=== PATIENT | female | born 1995 | race Caucasian/White ===

== ENCOUNTER → 2016-07-18 | Outpatient (CLI) | payer BC, MEDICAID ==
--- NOTE | 2016-07-18 19:47 | Diagnostic Imaging Report ---
EXAMINATION: Left breast ultrasound. INDICATION: Left breast tenderness. FINDINGS: The left breast parenchyma appears unremarkable with no focal lesion seen. IMPRESSION: Negative study. Clinical followup recommended. ACR BI-RADS Category 1: Negative. Result letter will be mailed to the patient. Note: At least 10% of breast cancer is not imaged by mammography. Dictated by: Dictated on workstation # [id number]
== END ==
LOC: RAD 12:54
PROVIDERS: ATTEND Nurse Practitioner Family
DX: N64.4 Mastodynia (principal)
CPT/HCPCS: 76641

== ENCOUNTER → 2018-09-10 | Outpatient (CLI) | payer BC, MEDICAID ==
--- NOTE | 2018-09-10 16:20 | Diagnostic Imaging Report ---
PROCEDURE: US Renal Bilateral. TECHNIQUE: Multiple real-time grayscale images were obtained over the kidneys in various projections bilaterally. INDICATION: Recurrent urinary tract infections. FINDINGS: Right kidney measured 10.5 cm. Its cortical thickness and echotexture was normal and showed no echogenic or shadowing stone. No hydronephrosis. The left kidney measures at least 7.5 cm however its visualization is limited by overlying gas. Its cortical thickness and echotexture appeared otherwise normal and showed no evidence for solid or cystic mass. No echogenic or shadowing stone. The urinary bladder appeared normal. There is patency of the bilateral ureteral jets confirmed with color Doppler. IMPRESSION: Limited acoustical windows to the left kidney suggest its small at 7.5 cm but its measurements may be understated on a technical basis. Normal echotexture. No stone, no mass, no hydronephrosis, normal bladder. Dictated by: Dictated on workstation # [id number]
== END ==
LOC: RAD 15:02
PROVIDERS: ATTEND Internal Medicine
DX: N39.0 Urinary tract infection, site not specified (principal)
CPT/HCPCS: 76770

== ENCOUNTER 2019-07-07 12:25 | Emergency (ER) | payer MEDICAID ==
[~2019-07-07] VITALS: Ht 160 cm; Wt 108.9 kg
--- NOTE | 2019-07-07 12:34 | ED General ---
General Stated Complaint: SOA Source of Information: Patient Exam Limitations: No Limitations History of Present Illness Date Seen by Provider: Jul 07, 2019 Time Seen by Provider: 12:33 Initial Comments To ER with reports of shortness of breath that awakened her from sleep last night. No cough, no fever. No travel history, her aunt however did just return from [facility] and is now self quarantining at her home in [place] though she is still asymptomatic. This patient has had exposure to that aunt. Timing/Duration: 4-6 Hours Severity: Mild Associated Systoms: Shortness of Air Allergies and Home Medications Patient Home Medication List Home Medication List Reviewed: Yes Review of Systems Review of Systems Constitutional: see HPI; No chills, No fever EENTM: see HPI Respiratory: see HPI; No cough; short of breath Cardiovascular: no symptoms reported Genitourinary: no symptoms reported Musculoskeletal: no symptoms reported Skin: no symptoms reported Psychiatric/Neurological: No Symptoms Reported Hematologic/Lymphatic: No Symptoms Reported Past Iuvhodu-Eaucjv-Fvkatt Hx Patient Social History Recent Foreign Travel: No Contact w/Someone Who Travel: No Physical Exam Vital Signs Vital Signs - First Documented 07/07/19 12:29 Temp 36.6 Pulse 94 Resp 18 B/P (MAP) 116/60 (78) Pulse Ox 99 O2 Delivery Room Air Capillary Refill : Height, Weight, BMI Height: '" Weight: lbs. oz. kg; BMI Method: General Appearance: No Apparent Distress, WD/WN Eyes: Bilateral Eye Normal Inspection, Bilateral Eye PERRL, Bilateral Eye EOMI HEENT: PERRL/EOMI, Normal ENT Inspection Neck: Full Range of Motion, Normal Inspection Respiratory: Lungs Clear, Normal Breath Sounds, No Accessory Muscle Use, No Respiratory Distress Gastrointestinal: Non Tender, Soft Neurologic/Psychiatric: Alert, Oriented x3 Skin: Normal Color, Warm/Dry Progress/Results/Core Measures Suspected Sepsis SIRS Temperature: Pulse: Respiratory Rate: Laboratory Tests 07/07/19 12:45: White Blood Count 7.4 Blood Pressure / Mean: Laboratory Tests 07/07/19 12:45: Creatinine 0.87, Platelet Count 360 Results/Orders Lab Results Laboratory Tests Test 07/07/19 12:45 Range/Units White Blood Count 7.4 4.3-11.0 10^3/uL Red Blood Count 4.97 4.35-5.85 10^6/uL Hemoglobin 14.2 11.5-16.0 G/DL Hematocrit 42 35-52 % Mean Corpuscular Volume 84 80-99 FL Mean Corpuscular Hemoglobin 29 25-34 PG Mean Corpuscular Hemoglobin Concent 34 32-36 G/DL Red Cell Distribution Width 13.1 10.0-14.5 % Platelet Count 360 130-400 10^3/uL Mean Platelet Volume 9.2 7.4-10.4 FL Neutrophils (%) (Auto) 66 42-75 % Lymphocytes (%) (Auto) 26 12-44 % Monocytes (%) (Auto) 7 0-12 % Eosinophils (%) (Auto) 1 0-10 % Basophils (%) (Auto) 0 0-10 % Neutrophils # (Auto) 4.9 1.8-7.8 X 10^3 Lymphocytes # (Auto) 1.9 1.0-4.0 X 10^3 Monocytes # (Auto) 0.5 0.0-1.0 X 10^3 Eosinophils # (Auto) 0.1 0.0-0.3 10^3/uL Basophils # (Auto) 0.0 0.0-0.1 10^3/uL D-Dimer < 0.27 0.00-0.49 UG/ML Sodium Level 141 135-145 MMOL/L Potassium Level 3.9 3.6-5.0 MMOL/L Chloride Level 107 98-107 MMOL/L Carbon Dioxide Level 24 21-32 MMOL/L Anion Gap 10 5-14 MMOL/L Blood Urea Nitrogen 9 7-18 MG/DL Creatinine 0.87 0.60-1.30 MG/DL Estimat Glomerular Filtration Rate > 60 BUN/Creatinine Ratio 10 Glucose Level 104 70-105 MG/DL Calcium Level 9.1 8.5-10.1 MG/DL My Orders Orders - LEXII SOLORZANO CASE HARDENER Cbc With Automated Diff (07/07/19 12:32) Basic Metabolic Panel (07/07/19 12:32) Fibrin Degradation Products (07/07/19 12:32) Chest Pa/Lat (2 View) (07/07/19 12:32) Vital Signs/I&O 07/07/19 07/07/19 12:29 13:58 Temp 36.6 36.9 Pulse 94 90 Resp 18 18 B/P (MAP) 116/60 (78) 147/93 Pulse Ox 99 99 O2 Delivery Room Air Room Air Capillary Refill : Departure Impression Primary Impression: Dyspnea Qualified Codes: R06.00 - Dyspnea, unspecified Disposition: 01 HOME, SELF-CARE Condition: Stable Departure-Patient Inst. Decision time for Depature: 13:40 Referrals: MONA BERNARDO MD (PCP/Family) Primary Care Physician Patient Instructions: Shortness of Breath (Dyspnea) (DC) Add. Discharge Instructions: 1. Follow-up with your doctor later this week for recheck 2. Return to ER for any concerns. Work/School Note: Work Release Form Date Seen in the Emergency Department: Jul 07, 2019 Return to Work: Jul 12, 2019 LEXII SOLORZANO APRN Jul 07, 2019 12:34
[2019-07-07 12:52] LABS: BASOPHILS % (AUTO) 0 % (0-10); EOSINOPHILS # (AUTO) 0.1 10^3/uL (0.0-0.3); EOSINOPHILS % (AUTO) 1 % (0-10); HEMATOCRIT 42 % (35-52); HEMOGLOBIN 14.2 G/DL (11.5-16.0); LYMPHOCYTES # (AUTO) 1.9 X 10^3 (1.0-4.0); LYMPHOCYTES % (AUTO) 26 % (12-44); MEAN CORPUSCULAR HEMOGLOBIN 29 PG (25-34); MEAN CORPUSCULAR HGB CONC 34 G/DL (32-36); MEAN CORPUSCULAR VOLUME 84 FL (80-99); MEAN PLATELET VOLUME 9.2 FL (7.4-10.4); MONOCYTES # (AUTO) 0.5 X 10^3 (0.0-1.0); MONOCYTES % (AUTO) 7 % (0-12); NEUTROPHILS # (AUTO) 4.9 X 10^3 (1.8-7.8); NEUTROPHILS % (AUTO) 66 % (42-75); PLATELET COUNT 360 10^3/uL (130-400); RED CELL DISTRIBUTION WIDTH 13.1 % (10.0-14.5); WHITE BLOOD COUNT 7.4 10^3/uL (4.3-11.0)
[2019-07-07 13:10] LABS: BUN/CREATININE RATIO 10; CALCIUM 9.1 MG/DL (8.5-10.1); CARBON DIOXIDE 24 MMOL/L (21-32); CHLORIDE 107 MMOL/L (98-107); CREATININE SERUM 0.87 MG/DL (0.60-1.30); GFR ESTIMATED > 60; GLUCOSE 104 MG/DL (70-105); POTASSIUM 3.9 MMOL/L (3.6-5.0); SODIUM 141 MMOL/L (135-145)
--- NOTE | 2019-07-07 13:37 | Diagnostic Imaging Report ---
INDICATION: Dyspnea PA and lateral views of the chest are obtained. COMPARISON: No previous study is available for comparison at this time. FINDINGS: Heart size and pulmonary vasculature are within normal limits, and the lungs are clear, bilaterally. IMPRESSION: Unremarkable chest. Dictated by: Dictated on workstation # [id number]
[2019-07-07 13:58] VITALS: BP 147/93
--- OUTSIDE RECORDS SUMMARY | 2019-07-07 16:20 | XMS REPORT | CCD ---
Author Author AXEL PALACIO Organization Unknown Address [address] [place] [address] Care Team Providers Care Stockroom Selector Name Role Phone [facility], KIKE DO Attphys [facility], KIKE DO Prisurg Allergies Allergy Code Allergy Type Reaction Status No Known Drug Allergies 0 Drug allergy Active Active Medications Medication Code Dose Units Frequency Rou te Modification Start Date/Time oxyCODONE HCl-acetaminophen 5MG-325MG Oral Tablet 2701671 1 TABLET NEEDED EVERY 6 HR BY MOUTH 11/01 17:32 Prescription Detail 1 TABLET BY MOUTH NEEDED EVERY 6 HR PrePlus 27MG-1MG Oral Tablet 4726590 1 EACH DAILY BY MOUTH 11/02/2015 17:32 Prescription Detail 1 EACH BY MOUTH DAILY Ferrous Sulfate 325MG Oral Tablet 858004 325 M ILLIGRAMS BEFORE TWO MEALS BY MOUTH 11/02/2015 17:31 Prescription Detail 325 MILLIGRAMS BY MOUTH BEF ORE TWO MEALS Ibuprofen 800MG Oral Tablet 675990 800 MILLIGR AMS EVERY 8 HOURS BY MOUTH 11/02/2015 17:31 Prescription Detail 800 MILLIGRAMS BY MOUTH NICOLAS RY 8 HOURS Docusate Sodium 100MG Oral Capsule 8649039 100 MILLIGRAMS NEEDED BY MOUTH 11/02/2015 17:30 Prescription Detail 100 MILLIGRAMS BY MOUTH NEEDED Problems Problem Code Start Date Resolved Date Sta tus Delivery by [id number] Active Procedures Procedure Code Procedure Type Date IRON TOTAL 11087941 SNOMED CT 01/29/2016 [address]ON T[address] 04644186 SNOMED [address] 01/29/[address] 01/29/2016 UA ROUTINE C&S IF IND 700167707 SNOMED CT 01/[address] 01/29/[address] 01/29/[address] 01/29/2016 RAPID DRUG SCREEN 592269679 [facility] CT 01/29/20 16 TROPONIN-I ADV 516539648 [facility] 01/29/2016 LIPASE 45121170 [facility] 01/29/2016 COMPREHENSIVE METABOLIC PANEL 699347905 [facility] 01/29/2016 CBC W/ AUTO DIFF (RFLX MAN DIFF IF IND) 4160964 [facility] 01/29/2016 ^UA WITH MICRO 767867106 SNOMED CT 01/29/2016 ^CBC W/AUTO DIFF 2857219 [facility] CT 6 Results COMPREHENSIVE METABOLIC PANEL - Collect Date/Time: 01/29/2016 15:00 Test Name Code Test Result Test Units Danna t Ref Range GLUCOSE 2345-7 85 MG/DL L=70 H=1 00 SODIUM 2951-2 142 MEQ/L L=135 H=14 8 POTASSIUM 2823-3 3.7 MEQ/L L=3.5 H =5.3 CHLORIDE 2075-0 107 MEQ/L L=96 H= 110 CO2 2028-9 23 MEQ/L L=22 H=29 BUN 3094-0 10 MG/DL L=8 H=22 CREATININE 2160-0 0.7 MG/DL L=0.6 H=1.6 SGOT/AST 1920-8 40 IU/L L=10 H= 40 SGPT/ALT 1742-6 44 IU/L L=8 H= 54 ALK PHOS 6768-6 80 IU/L L=35 H= 115 TOTAL PROTEIN 2885-2 7.2 G/DL L=5.5 H=8.5 ALBUMIN 1751-7 4.2 G/DL L=3.1 H=5 .4 TOTAL BILI 1975-2 0.6 MG/DL L=0.0 H=1.5 CALCIUM 61278-0 9.4 MG/DL L=8.2 H= 10.6 AGE 20 yrs GFR NonAA 108 GFR AA 131 eGFR >60 N/A eGFR AA* >60 N/A IRON TOTAL - Collect Date/Time: 01/29/20 16 17:05 Test Name Code Test Result Test Units Danna t Ref Range IRON TOTAL 2498-4 172 MCG/DL L=50 H=212 IRON TOTAL - Collect Date/Time: 01/29/20 16 15:00 Test Name Code Test Result Test Units Danna t Ref Range IRON TOTAL 2498-4 69 MCG/DL L=50 H=212 LIPASE - Collect Date/Time: 01/29/2016 1 5:00 Test Name Code Test Result Test Units Danna t Ref Range LIPASE 3040-3 10 U/L L=8 H=78 ACETAMINOPHEN - Collect Date/Time: 01/28 15:00 Test Name Code Test Result Test Units Danna t Ref Range ACETAMINOPHEN 3298-7 <0.60 UG/ML ALCOHOL - Collect Date/Time: 01/29/2016 15:00 Test Name Code Test Result Test Units Danna t Ref Range ETHANOL 5640-8 <10 MG/DL RAPID DRUG SCREEN - Collect Date/Time: 1 15:35 Test Name Code Test Result Test Units Danna t Ref Range Cannabinoids (THC) NEGATIVE N/A N EG: < 50 ng/ml Phencyclidine (PCP) NEGATIVE N/A NEG: < 25 ng/ml Cocaine NEGATIVE N/A NEG: < 300 ng/ml Methamphetamine NEGATIVE N/A NEG: < 1000 ng/ml Opiates NEGATIVE N/A NEG: < 300 ng/ml Amphetamine NEGATIVE N/A NEG: < 1 000 ng/ml Benzodiazepines NEGATIVE N/A NEG: < 300 ng/ml Tricyclic Antidepres NEGATIVE N/A NEG: < 300 ng/ml Methadone NEGATIVE N/A NEG: < 30 0 ng/ml Barbiturates NEGATIVE N/A NEG: < 200 ng/ml Oxycodone NEGATIVE N/A NEG: < 10 0 ng/ml Propoxyphene (PPX) NEGATIVE N/A N EG: < 300 ng/ml SALICYLATE - Collect Date/Time: 01/29/20 16 15:00 Test Name Code Test Result Test Units Danna t Ref Range SALICYLATE 4023-8 <5.0 MG/DL L=0.0 H=45.0 CBC W/ AUTO DIFF (RFLX MAN DIFF IF IND) - Collect Date/Time: 01/29/2016 15:00 Test Name Code Test Result Test Units Danna t Ref Range WBC 06682-8 7.5 TH/CMM L=4.5 H=1 0.8 RBC 789-8 4.72 ML/CMM L=4.20 H=5. 40 HGB 718-7 12.5 G/DL L=12.0 H=16 .0 HCT 4544-3 38.3 % L=37.0 H=47 .0 MCV 81 FL L=81 H=99 MCH 26.5 PG L=27.0 H=33 .0 MCHC 32.6 G/DL L=31.0 H=36 .0 RDW SD 40 FL L=36 H=50 RDW CV 13.7 % L=0.0 H=14 .8 MPV 8.5 FL L=9.3 H=12 .5 PLT 777-3 396 TH/CMM L=130 H=44 0 NRBC# 0.00 TH/CMM L=0.00 H=0. 00 NRBC% 0.0 /100WBC L=0.0 H=2 .0 %NEUT 67.5 % %LYMP 23.7 % %MONO 6.5 % %EOS 1.1 % %BASO 0.8 % #NEUT 5.08 TH/CMM L=2.10 H=8. 20 #LYMP 1.78 TH/CMM L=0.90 H=5. 20 #MONO 0.49 TH/CMM L=0.16 H=1. 00 #EOS 0.08 TH/CMM L=0.00 H=0. 80 #BASO 0.06 TH/CMM L=0.00 H=0. 20 MANUAL DIFF NOT IND N/A UA ROUTINE C&S IF IND - Collect Date/Danny e: 01/29/2016 15:30 Test Name Code Test Result Test Units Danna t Ref Range COLOR YELLOW N/A NL: YELLOW APPEARANCE CLEAR N/A NL: CLEAR SPEC GRAV 1.025 N/A NL: 1.002 - 1.022 pH 6.0 N/A NL: 5 - 9 PROTEIN NEGATIVE N/A NL: NEGATIVE mg/dl GLUCOSE NEGATIVE N/A NL: NEGATIVE mg/dl KETONE TRACE N/A NL: NEGATIVE m g/dl BILIRUBIN NEGATIVE N/A NL: NEGATI VE BLOOD TRACE-INTACT N/A NL: NEGAT CLEO NITRITE NEGATIVE N/A NL: NEGATIVE LEUK SCREEN NEGATIVE N/A NL: NEGA TIVE MICRO INDICATED? SEE BELOW N/A WBC/HPF 0-5 N/A NL: NEGATIVE RBC/HPF RARE N/A NL: NEGATIVE CASTS/LPF NEGATIVE N/A NL: NEGAT CLEO CRYSTALS NEGATIVE N/A NL: NEGATI VE MUCOUS THRDS NEGATIVE N/A NL: NE GATIVE BACTERIA FEW N/A NL: NEGATIVE EPITH CELLS 1+ SQUAMOUS N/A NL: NEGATIVE TRICHOMONAS NEGATIVE N/A NL: NEG ATIVE YEAST NEGATIVE N/A NL: NEGATIVE CULT SET UP? NO N/A TEST - Collect Date/Time: 01/19 15:00 Test Name Code Test Result Test Units Danna t Ref Range TEST 8-8 NEGATIVE N/A TROPONIN-I ADV - Collect Date/Time: 01/19 15:00 Test Name Code Test Result Test [place] [address]-0 <0.04 ng/mL L=0.04 H=0.40 Function Status Unknown or Not Available. History of Immunizations Immunization Code Date Tdap 115 09/14/2015 Plan of Treatment Unknown or Not Available. Social History Smoking Status Code Start Date End Date Never smoker [id number] Vital Signs Unknown or Not Available. Function Status Unknown or Not Available. Goals Unknown or Not Available. ASSESSMENTS Unknown or Not Available. Health Concerns Section Unknown or Not Available.
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
--- OUTSIDE RECORDS SUMMARY | 2019-07-07 16:21 | XMS REPORT ---
Author Author Genet Anguiano Organization [facility] Address [address] [place], [place] [id number] Care Team Providers Care Accounting Methods Analyst Name Role Phone Sergey Anguiano PCP Unavailable Allergies and Adverse Reactions Name Reaction Notes NO KNOWN DRUG ALLERGIES Plan of Treatment Not available. Medications Active Name Start Date Estimated Completion Date SIG Co mments IMPLANON Subdermal Implant 68 mg implant 1 by subdermal route Vyvanse oral capsule 50 mg 09/22/2014 10/22/2014 take 1 capsule (50 mg) by oral route once daily in the morning for 30 days Name Start Date Expiration Date SIG Comments Sprintec (28) Oral Tablet 0.25-35 mg-mcg 09/11/2010 10/10/19 11 TAKE ONE TABLET DAILY Amoxicillin Oral Capsule 500 mg 05/27/2011 06/06/2011 take 2 capsules by oral route 3 times a day for 5 days Zithromax Z-Florentino Oral tablet 250 mg 03/20/2012 03/21/2012 take 2 tablets (500 mg) by oral route once daily for 1 day then 1 tablet (250 mg) by oral route once daily for 4 days estradiol Oral tablet 1 mg 06/03/2012 06/13/2012 take 1 tablet (1 mg) by oral route once daily for 10 days Kapvay Oral tablet extended release 12 hr 0.1 mg 08/31/2012 09/30/2012 take 1 tablet by oral route 2 times a day for 30 days amoxicillin oral tablet 875 mg 05/26/2014 06/02/2014 t nanci 1 tablet (875 mg) by oral route every 12 hours for 7 days Discontinued Name Start Date Discontinued Date SIG Comments Risperdal Oral Tablet 0.5 mg 06/03/2012 take 1 table t by oral route daily Loestrin Fe 20 (28) Oral Tablet 1-20 mg-mcg 11/06/201009/25/2011 take 1 tablet by oral route once daily for 30 days promethazine-codeine Oral Syrup 6.25-10 mg/5 mL 03/16/2012 06/03/2012 take 5 milliliters by oral route every 4-6 hours as needed, not to exceed 30 mL in 24 hours estradiol oral tablet 1 mg 09/16/2013 05/26/2014 take 1 tablet (1 mg) by oral route once daily Problem List Description Status Onset ADHD Active Bipolar Disorder Active Vital Signs Date Time BP-Sys(mm[Hg] BP-Gita(mm[Hg]) HR(bpm) RR(rpm) Temp WT HT HC BMI BSA BMI Percentile O2 Sat(%) 09/29/2014 3:12:00 PM 130 mmHg 78 mmHg 115 bpm 18 rpm 99.3 F 166.125 lbs 63 in 29.43 kg/m2 1.83 m2 93.8 % 08/11/2014 3:46:00 PM 108 mmHg 62 mmHg 78 bpm 18 rpm 98.7 F 166 lbs 63 in 29.4053 kg/m 1.8295 m 93.9 % 05/26/2014 2:54:00 PM 112 mmHg 76 mmHg 80 bpm 16 rpm 99.3 F 162 lbs 63 in 28.70 kg/m2 1.81 m2 93.1 % 04/05/2014 9:35:00 AM 102 mmHg 60 mmHg 69 bpm 16 rpm 97.8 F 160.375 lbs 63 in 28.4089 kg/m 1.7982 m 92.8 % 100 % 09/16/2013 2:58:00 PM 122 mmHg 62 mmHg 84 bpm 18 rpm 98.6 F 148.375 lbs 63 in 26.28 kg/m2 1.73 m2 88.7 % 98 % 09/16/2013 2:58:00 PM 120 mmHg 62 mmHg 08/31/2012 3:58:00 PM 102 mmHg 60 mmHg 88 bpm 18 rpm 98.8 F 185 lbs 63 in 32.7709 kg/m 1.9313 m 97.7 % 06/03/2012 11:04:00 AM 123 mmHg 76 mmHg 103 bpm 97.6 F 180 lbs 63 in 31.89 kg/m2 1.91 m2 97.4 % 03/16/2012 11:33:00 AM 132 mmHg 68 mmHg 68 bpm 18 rpm 99 F 185.5 lbs 63 i n 32.8595 kg/m 1.9339 m 97.9 % 10/18/2011 11:17:00 AM 128 mmHg 75 mmHg 127 bpm 98 F 177 lbs 63 in 31.35 kg/m2 1.89 m2 97.4 % 09/25/2011 2:59:00 PM 114 mmHg 75 mmHg 114 bpm 97.8 F 174.375 lbs 63 i n 30.8888 kg/m 1.875 m 97.2 % 07/26/2011 9:24:00 AM 112 mmHg 72 mmHg 88 bpm 20 rpm 97.8 F 169 lbs 63 in 29.94 kg/m2 1.85 m2 96.7 % 05/27/2011 10:45:00 AM 102 mmHg 70 mmHg 106 bpm 20 rpm 97.4 F 164 lbs 62.5 i n 29.5177 kg/m 1.8112 m 96.5 % 11/06/2010 3:27:00 PM 110 mmHg 72 mmHg 94 bpm 20 rpm 98 F 169 lbs 61.5 in 31.41 kg/m2 1.82 m2 97.9 % 06/26/2010 4:12:00 PM 104 mmHg 68 mmHg 88 bpm 22 rpm 98.8 F 149 lbs 05/28/2010 2:28:00 PM 104 mmHg 62 mmHg 100 bpm 24 rpm 98.8 F 146 lbs 07/18/2009 2:59:00 PM 98 mmHg 72 mmHg 100 bpm 16 rpm 98.4 F 126.125 lbs Social History Name Description Comments denies alcohol use Tobacco Never smoker Alcohol History of Procedures Date Ordered Description Order Status 09/25/2011 12:00 AM CHLAMYDIA CULTURE Returned 09/25/2011 12:00 AM N.GONORRHOEAE DNA AMP PROB Returned 09/25/2011 12:00 AM SYPHILIS TEST NON-TREP QUAL Returned 09/25/2011 12:00 AM HIV-1ANTIBODY Returned 09/25/2011 12:00 AM HEPATITIS B SURFACE AG EIA Returned 09/25/2011 12:00 AM CHORIONIC GONADOTROPIN ASSAY Returned 10/18/2011 12:00 AM INSERT DRUG IMPLANT DEVICE Reviewed 07/18/2009 12:00 AM IMMUNIZATION ADMIN Reviewed 09/15/2009 12:00 AM IMMUNIZATION ADMIN Reviewed [...] 1:31 PM BETA HCG QUANT <1 MIU/ML History Of Immunizations Name Date Admin Mfg Name Mfg Code Trade Name Lot# Route Inj Vis Given Vis Pub CVX HPV 07/18/2009 [employer] MSD GARDASIL oo4oz Intramuscul ar Left Deltoid 07/18/2009 05/23/2006 999 History of Past Illness Name Date of [...] or removal Sep 29 2014 3:20P M Payers Insurance Name Company Name Plan Name Plan Number Policy Number Javier cy Group Number Start Date [id number] Mo 2011 [place] [employer] [place] [facility] [employer] [employer] [id number] Tuesday, 2009 [place] [employer] - [employer] [place] [employer] - RH C [id number] N/A [facility] [id number] N/A History of Encounters Visit Date Visit Type Provider 09/29/2014 Procedures Neisha lara SUPERVISOR DYER 08/11/2014 Office visit Sergey Anguiano MD 05/26/2014 Office visit Sergey Anguiano MD 04/05/2014 Office visit Sergey Anguiano MD 09/16/2013 Office visit [place] SUPERVISOR DYER 08/31/2012 Office visit Sergey Anguiano MD 06/03/2012 Office visit Liane Gamez MD 03/16/2012 Office visit [place] APRN 10/18/2011 Procedures Liane Gamez MD 09/25/2011 Office visit Liane Gamez MD 07/26/2011 Office visit Sergey Anguiano MD 05/27/2011 Office visit Sergey Anguiano MD 11/06/2010 Office visit Sergey Anguiano MD 06/26/2010 Office visit Sergey Anguiano MD 05/28/2010 Office visit Sergey Anguiano MD 09/15/2009 Nurse visit Sergey Anguiano MD 07/18/2009 Office visit Sergey Anguiano MD
--- OUTSIDE RECORDS SUMMARY | 2019-07-07 16:21 | XMS REPORT ---
Author Author Genet Courtney Organization [facility] Address [address] [place], [place] [id number] Care Team Providers Care Bilingual Medical Receptionist Name Role Phone Scotty Courtney PCP Allergies and Adverse Reactions Name Reaction Notes NO KNOWN DRUG ALLERGIES Plan of Treatment Planned Activity Comments Planned Date Planned Time Plan/Goal N.GONORRHOEAE DNA AMP PROB 01/13/2015 12:00 AM CHLAMYDIA CULTURE 01/13/2015 12:00 AM HIV-1ANTIBODY 01/13/2015 12:00 AM CHORIONIC GONADOTROPIN TEST 01/13/2015 12:00 AM URINE TEST 01/02/2015 12:00 AM Medications Active Name Start Date Estimated Completion Date SIG Co mments Vitamin oral tablet take 1 table t by oral route once daily Name Start Date Expiration Date SIG Comments [...] daily in the morning for 30 days Discontinued Name Start Date Discontinued Date [...] HC BMI BSA BMI Percentile O2 Sat(%) 01/13/2015 9:37:00 AM 103 mmHg 71 mmHg [...] Ordered Description Order Status 01/13/2015 12:00 AM URINALYSIS AUTO W/SCOPE Returned 01/13/2015 12:00 AM OBSTETRIC PANEL Returned 09/25/2011 12:00 AM CHLAMYDIA CULTURE Returned 09/25/2011 [...] Care, First Normal Jan 13 2015 9:41AM Payers Insurance Name Company Name Plan Name Plan Number Policy Number Javier cy Group Number Start Date Bcbs Bcbs Of [place] [id number] Mo 2011 [place] Medical [place] Sher[place] t[place] Prog [id number] Tuesday, 2009 [place] [employer]ranger [employer]sembler Prog - RHC [place] [employer] Pro[employer] - RH C [id number] N/A [facility] RHC Comm [id number] N/A History of Encounters Visit Date Visit Type Provider 01/13/[address] ROSANNA GRIGGS MD 01/04/2015 Office visit Irina PINEDA RN 12/16/2014 Office visit Sergey Anguiano MD 09/29/2014 Procedures Neisha lara COTTON PROGRAM TECHNICIAN 08/11/2014 Office visit Sergey Anguiano MD 05/26/2014 Office visit Sergey Anguiano MD 04/05/2014 Office visit Sergey Anguiano MD 09/16/2013 Office visit [place] COTTON PROGRAM TECHNICIAN 08/31/2012 Office visit Sergey Anguiano MD 06/03/2012 Office visit Liane Gamez MD 03/16/2012 Office visit [place] COTTON PROGRAM TECHNICIAN 10/18/2011 Procedures Liane Gamez MD 09/25/2011 Office visit Liane Gamez MD 07/26/2011 Office visit Sergey Anguiano MD 05/27/2011 Office visit Sergey Anguiano MD 11/06/2010 Office visit Sergey Anguiano MD 06/26/2010 Office visit Sergey Anguiano MD 05/28/2010 Office visit Sergey Anguiano MD 09/15/2009 Nurse visit Sergey Anguiano MD 07/18/2009 Office visit Sergey Anguiano MD
--- OUTSIDE RECORDS SUMMARY | 2019-07-07 16:21 | XMS REPORT ---
Author Author Genet Brown Organization [facility] Address [address] [place], [place] [id number] Care Team Providers Care Pipe Puller Name Role Phone Shannon Brown PCP Sergey Anguiano PreferredProvider Allergies and Adverse Reactions Name Reaction Notes NO KNOWN DRUG ALLERGIES Plan of Treatment Planned Activity Comments Planned Date Planned Time Plan/Goal test, urine 01/02/2015 12:00 AM Medications Active Name Start Date Estimated Completion Date SIG Co mments Vitamin oral Zofran (as hydrochloride) 8 mg oral tablet 03/11/2017 take 1 tablet by oral route every 8 hours as needed Name Start Date Expiration [...] (1 mg) by oral route once daily Vitamin oral tablet 12/12/2015 take 1 table t by oral route once daily triamcinolone acetonide [...] tablet (150 mg) by oral route once ferrous sulfate 325 mg (65 mg iron) oral tablet 08/22/2015 12/12/2015 take 1 tablet by oral route 2 times a day for 30 days Vistaril 50 mg oral capsule 09/28/2015 12/12/2015 take 1 capsule by oral route every 4 hours as needed Zoloft oral 02/28/2016 Take one tablet daily Prozac oral 01/06/2017 Zofran ODT 8 mg oral tablet,disintegrating 03/11/201703/11 take 1 tablet (8 mg) and place on top of the tongue where it will dissolve, then swallow by oral route every 8 hrs as needed for nausea w Problem List Description Status Onset ADHD Active Bipolar Disorder Active Vital Signs Date Time BP-Sys(mm[Hg] BP-Gita(mm[Hg]) HR(bpm) RR(rpm) Temp WT HT HC BMI BSA BMI Percentile O2 Sat(%) 01/06/2017 3:53:00 PM 127 mmHg 70 mmHg 86 bpm 99.4 F 209 lbs 63 in 37.02 kg/m2 2.05 m2 0 % 02/28/2016 1:43:00 PM 125 mmHg 72 mmHg 97 bpm 99 F 214 lbs 63 in 37.908 kg/m 2.0772 m 98 % 12/12/2015 11:43:00 AM 105 mmHg 72 mmHg 90 bpm 98 F 200.5 lbs 63 in 35.52 kg/m2 2.01 m2 97.4 % 08/15/2015 6:02:00 PM 97 bpm 20 rpm 98.8 F 202 lbs 63 in 35.7823 kg/m 2.0181 m 97.6 % 97 % 06/11/2015 3:40:00 PM 122 mmHg 78 mmHg 110 bpm 20 rpm 98.3 F 183 lbs 64 in 31.41 kg/m2 1.94 m2 95.4 % 100 % 05/29/2015 3:21:00 PM 100 mmHg 64 mmHg 105 bpm 20 rpm 98.9 F 178 lbs 63 in 31.531 kg/m 1.8944 m 95.6 % 99 % 04/05/2015 4:09:00 PM 120 mmHg 60 mmHg 90 bpm 18 rpm 98 F 187 lbs 63 in 33.13 kg/m2 1.94 m2 96.7 % 100 % 03/30/2015 1:45:00 PM 112 mmHg 70 mmHg 76 bpm 18 rpm 98.7 F 172 lbs 63 in 30.4681 kg/m 1.8622 m 94.7 % 100 % 03/22/2015 4:17:00 PM 129 mmHg 70 mmHg 103 bpm 169 lbs 63 in 29.94 kg/m2 1.85 m2 94.1 % 01/13/2015 9:37:00 AM 103 mmHg 71 mmHg 80 bpm 98.89 F 165 lbs 63 in 29.2281 kg/m 1.8239 m 93.3 % 01/04/2015 2:20:00 PM 118 mmHg 60 mmHg 91 bpm 16 rpm 98 F 167 lbs 63 in 29.58 kg/m2 1.83 m2 93.8 % 100 % 12/16/2014 11:11:00 AM 100 mmHg 62 mmHg 80 bpm 18 rpm 98.8 F 168 lbs 63 in 29.7596 kg/m 1.8405 m 94.1 % 09/29/2014 3:12:00 PM 130 mmHg [...] Name Description Comments denies alcohol use Tobacco Former smoker Alcohol Never History of Procedures Date Ordered Description Order Status 01/13/2015 12:00 AM N.GONORRHOEAE DNA AMP PROB Reviewed 01/13/2015 12:00 AM CHLAMYDIA CULTURE Reviewed 01/13/2015 12:00 AM HIV-1ANTIBODY Reviewed 01/13/2015 12:00 AM URINALYSIS AUTO W/SCOPE Reviewed 01/13/2015 12:00 AM OBSTETRIC PANEL Reviewed 01/13/2015 12:00 AM CHORIONIC GONADOTROPIN TEST Reviewed 03/06/2015 12:00 AM CHORIONIC GONADOTROPIN ASSAY Reviewed 03/22/2015 12:00 AM N.GONORRHOEAE DNA AMP PROB Reviewed 03/22/2015 12:00 AM CHLAMYDIA CULTURE Reviewed 03/22/2015 12:00 AM HIV-1ANTIBODY Reviewed 03/22/2015 12:00 AM URINALYSIS AUTO W/SCOPE Reviewed 03/22/2015 12:00 AM OBSTETRIC PANEL Reviewed 03/22/2015 12:00 AM US PREG UTERUS REAL TIME W/IMAGE DCMTN T RANSVAG Reviewed 04/05/2015 12:00 AM URNLS DIP STICK/TABLET RGNT AUTO W/O JUNG ROSCOPY Reviewed 05/29/2015 12:00 AM ALPHA-FETOPROTEIN SERUM Reviewed 05/29/2015 12:00 AM COMPLETE CBC W/AUTO DIFF WBC Reviewed 05/29/2015 12:00 AM COMPREHEN METABOLIC PANEL Reviewed 06/11/2015 4:11 PM URINALYSIS AUTO W/O SCOPE Reviewed 06/23/2015 12:00 AM OB US >/= 14 WKS SNGL FETUS Reviewed 06/11/2015 12:00 AM URINE CULTURE/COLONY COUNT Reviewed 08/15/2015 6:07 PM URINALYSIS AUTO W/O SCOPE Reviewed 08/15/2015 12:00 AM URINE CULTURE/COLONY COUNT Returned 2015 12:00 AM RH IG FULL-DOSE IM Reviewed 2015 12:00 AM Type and screen Reviewed 2015 12:00 AM GLUCOSE TOLERANCE TEST (GTT) Reviewed 2015 12:00 AM COMPLETE CBC W/AUTO DIFF WBC Reviewed 08/22/2015 12:00 AM GLUCOSE TOLERANCE TEST (GTT) Reviewed 09/14/2015 12:00 AM URINE CULTURE/COLONY COUNT Reviewed 09/14/2015 12:00 AM TDAP VACCINE 7 YRS/> IM Reviewed 09/14/2015 12:00 AM IMMUNIZATION ADMIN EACH ADD Reviewed 10/10/2015 12:00 AM CULTURE SCREEN ONLY Reviewed 04/18/2016 12:00 AM CHORIONIC GONADOTROPIN ASSAY Reviewed 09/25/2011 12:00 AM CHLAMYDIA CULTURE Reviewed 09/25/2011 12:00 AM N.GONORRHOEAE DNA AMP PROB Reviewed 09/25/2011 12:00 AM SYPHILIS TEST NON-TREP QUAL Reviewed 09/25/2011 12:00 AM HIV-1ANTIBODY Reviewed 09/25/2011 12:00 AM HEPATITIS B SURFACE AG EIA Reviewed 09/25/2011 12:00 AM CHORIONIC GONADOTROPIN ASSAY Reviewed 10/18/2011 12:00 AM INSERT DRUG IMPLANT DEVICE Reviewed 10/18/2011 12:00 AM Implanon device Reviewed 01/06/2017 4:55 PM URINE TEST Reviewed 01/06/2017 12:00 AM SPECIMEN HANDLING OFFICE-LAB Reviewed 01/06/2017 12:00 AM N.GONORRHOEAE DNA AMP PROB Reviewed 01/06/2017 12:00 AM CHLAMYDIA CULTURE Reviewed 01/06/2017 12:00 AM HIV-1ANTIBODY Reviewed 01/06/2017 12:00 AM URINALYSIS AUTO W/SCOPE Reviewed 01/06/2017 12:00 AM OBSTETRIC PANEL Reviewed 01/06/2017 12:00 AM GLUCOSE TOLERANCE TEST (GTT) Reviewed 01/06/2017 12:00 AM HEPATITIS C AB TEST Reviewed 01/06/2017 12:00 AM DETECT AGENT NOS DNA AMP Reviewed 01/06/2017 12:00 AM TRICHOMONAS VAGINALIS AMPLIF Reviewed 01/27/2017 12:00 AM US PREG UTERUS REAL TIME W/IMAGE DCMTN T RANSVAG Reviewed 02/11/2017 12:00 AM Progenity Testing Reviewed 07/18/2009 12:00 AM IMMUNIZATION ADMIN Reviewed 07/18/2009 12:00 AM VFC Gardasil (HPV Vaccine) Reviewed 09/15/2009 12:00 AM IMMUNIZATION ADMIN Reviewed 09/15/2009 12:00 AM HPV VACCINE 4 VALENT IM Reviewed 09/16/2013 12:00 AM COMPLETE CBC W/AUTO DIFF WBC Reviewed 09/16/2013 12:00 AM COMPREHEN METABOLIC PANEL Reviewed 05/29/2010 12:00 AM ROUTINE VENIPUNCTURE Reviewed 05/29/2010 12:00 AM ACUTE HEPATITIS PANEL Reviewed 05/29/2010 12:00 AM SYPHILIS TEST NON-TREP QUAL Reviewed 08/03/2014 12:00 AM CHORIONIC GONADOTROPIN TEST Reviewed 09/29/2014 12:00 AM REMOVE CONTRACEPTIVE CAPSULE Reviewed Results Summary Date and Description Results 09/27/2011 11:50 AM TEST NEGATIVE HIV AG/AB COMBO 0.16 SOURCE: U 09/16/2013 4:25 PM GLUCOSE 73.0 mg/dLSODIUM 139 .0 mmol/LPOTASSIUM 4.30 mmol/LCHLORIDE 106.0 mmol/LCO2 24.0 mmol/LBUN 11.0 mg/dLCREATININE 0.70 mg/dLSGOT/AST 20.0 IU/LSGPT/ALT 15.0 IU/LALK PHOS 74.0 IU/LTOTAL PROTEIN 6.50 g/dLALBUMIN 4.0 g/dLTOTAL BILI 0.80 mg/dLCALCIUM 9.10 mg/dLAGE 18 GFR NonAA N/A eGFR N/A mL/min/1.73 m2eGFR AA* N/A WBC 7.3 RBC 4.65 HGB 13.60 g/dLHCT 38.90 %MCV 84.0 fLMCH 29.20 pgMCHC 35.0 g/dLRDW SD 38 RDW CV 12.50 %MPV 8.90 fLPLT 304 NRBC# 0.00 NRBC% 0.0 %NEUT 53.10 %%LYMP 36.10 %%MONO 7.70 %%EOS 2.10 %%BASO 1.0 %#NEUT 3.86 #LYMP 2.62 #MONO 0.56 #EOS 0.15 #BASO 0.07 MANUAL DIFF NOT IND 08/03/2014 1:31 PM BETA HCG QUANT <1 MIU/ML 01/13/2015 10:53 AM WBC 7.5 RBC 4.76 HGB 14.0 g/ dLHCT 40.90 %MCV 86.0 fLMCH 29.40 pgMCHC 34.20 g/dLRDW SD 39 RDW CV 12.30 %MPV 9.10 fLPLT 333 NRBC# 0.00 NRBC% 0.0 %NEUT 70.20 %%LYMP 21.30 %%MONO 6.50 %%EOS 1.20 %%BASO 0.80 %#NEUT 5.28 #LYMP 1.60 #MONO 0.49 #EOS 0.09 #BASO 0.06 MANUAL DIFF NOT IND COLOR YELLOW APPEARANCE CLEAR SPEC GRAV 1.025 pH 6.0 PROTEIN NEGATIVE GLUCOSE NEGATIVE mg/dLKETONE NEGATIVE BILIRUBIN NEGATIVE BLOOD NEGATIVE NITRITE NEGATIVE LEUK SCREEN NEGATIVE WBC/HPF 0-5 RBC/HPF NEGATIVE CASTS/LPF NEGATIVE /LPFCRYSTALS NEGATIVE MUCOUS THRDS 2++ BACTERIA FEW EPITH CELLS FEW SQUAMOUS /HPFTRICHOMONAS NEGATIVE YEAST NEGATIVE CULT ORDERED YES HIV AG/AB COMBO 0.11 BETA HCG QUANT <1 mIU/mLNeisseria Gonorrhoeae NEGATIVE Chlamydia Trachomatis POSITIVE HBsAg Screen Negative RPR Non Reactive Rubella Antibodies, IgG 2.34 Index 03/06/2015 10:25 AM BETA HCG QUANT 1849.0 mIU/mL 03/22/2015 5:08 PM RPR Non Reactive HBsAg Scree n Negative Rubella Antibodies, IgG 1.99 Index 06/07/2015 2:52 PM GLUCOSE 117.0 mg/dLSODIUM 13 7.0 mmol/LPOTASSIUM 3.80 mmol/LCHLORIDE 106.0 mmol/LCO2 24.0 mmol/LBUN 12.0 mg/dLCREATININE 0.70 mg/dLSGOT/AST 21.0 IU/LSGPT/ALT 27.0 IU/LALK PHOS 57.0 IU/LTOTAL PROTEIN 6.0 g/dLALBUMIN 3.60 g/dLTOTAL BILI 0.50 mg/dLCALCIUM 9.10 mg/dLAGE 19 GFR NonAA 109 GFR AA 132 eGFR >60 mL/min/1.73meGFR AA* >60 WBC 13.9 RBC 4.09 HGB 12.40 g/dLHCT 35.40 %MCV 87.0 fLMCH 30.30 pgMCHC 35.0 g/dLRDW SD 42 RDW CV 13.30 %MPV 8.60 fLPLT 314 NRBC# 0.00 NRBC% 0.0 %NEUT 78.60 %%LYMP 14.90 %%MONO 4.50 %%EOS 1.80 %%BASO 0.20 %#NEUT 10.94 #LYMP 2.07 #MONO 0.63 #EOS 0.25 #BASO 0.03 MANUAL DIFF NOT IND 06/11/2015 4:11 PM Clarity Ur cloudy Color Ur y ellow Glucose Ur-sCnc negative Bilirub Ur Ql Strip negaitive Ketones Ur Ql Strip negative Sp Gr Ur Qn >=1.030 Hgb Ur Ql Strip moderate pH Ur-LsCnc 5.0 Prot Ur Ql Strip negative Urobilinogen Ur-mCnc 0.2 Nitrite Ur Ql Strip negative WBC Est Ur Ql Strip small 2015 12:00 PM WBC 12.1 RBC 3.63 HGB 10.80 g/dLHCT 32.70 %MCV 90.0 fLMCH 29.80 pgMCHC 33.0 g/dLRDW SD 42 RDW CV 12.70 %MPV 8.30 fLPLT 290 NRBC# 0.00 NRBC% 0.0 %NEUT 76.80 %%LYMP 15.40 %%MONO 4.90 %%EOS 1.30 %%BASO 0.30 %#NEUT 9.27 #LYMP 1.86 #MONO 0.59 #EOS 0.16 #BASO 0.04 MANUAL DIFF NOT IND 10/10/2015 4:39 PM STREP GROUP B PCR GBS POSITI VE 04/18/2016 1:40 PM BETA HCG QUANT <1 mIU/mL 01/06/2017 4:55 PM Test, Urine positi ve 01/14/2017 3:40 PM WBC 13.3 RBC 4.70 HGB 13.60 g/dLHCT 40.10 %MCV 85.0 fLMCH 28.90 pgMCHC 33.90 g/dLRDW SD 38 RDW CV 12.50 %MPV 8.70 fLPLT 333 NRBC# 0.00 NRBC% 0.0 %NEUT 78.50 %%LYMP 15.60 %%MONO 4.50 %%EOS 0.50 %%BASO 0.40 %#NEUT 10.46 #LYMP 2.08 #MONO 0.60 #EOS 0.06 #BASO 0.05 MANUAL DIFF NOT IND HIV AG/AB COMBO 0.11 HEPATITIS C 0.09 COLOR YELLOW APPEARANCE CLEAR SPEC GRAV 1.025 pH 6.5 PROTEIN NEGATIVE GLUCOSE NEGATIVE mg/dLKETONE 40 BILIRUBIN NEGATIVE BLOOD NEGATIVE NITRITE NEGATIVE LEUK SCREEN NEGATIVE WBC/HPF 0-5 RBC/HPF NEGATIVE CASTS/LPF NEGATIVE /LPFCRYSTALS NEGATIVE MUCOUS THRDS 1+ BACTERIA 1+ EPITH CELLS 2++ SQUAMOUS /HPFTRICHOMONAS NEGATIVE YEAST NEGATIVE CULT ORDERED YES History Of Immunizations Name Date Admin Mfg Name Mfg Code Trade Name Lot# Route Inj Vis Given Vis Pub CVX HPV 07/18/2009 [employer] MSD GARDASIL [id number] Intramuscul ar Left Deltoid 07/18/2009 05/23/2006 999 Tdap 09/14/2015 GlaxoSmSentimentine SKB BOOSTRIX [id number] Intramuscular Right Deltoid 09/14/2015 [...] Normal first confirmed, currently in third t rimSep 14 2015 2:54PM History of pyelonephritis Sep 14 2015 2:54PM Need for Tdap vaccine Sep 14 2015 2:57PM Group B Strep Screening, Oct 10 2015 2:27PM Term Oct 26 2015 3:17PM Post- Follow-Up Dec 12 2015 11:50AM Contraceptive education Feb 28 2016 1:50PM Amenorrhea Apr 18 2016 12:57PM , confirmed, not first Jan 06 2017 4:04PM Previous delivery, antepartum Jan 06 2017 4:04PM Obesity Jan 06 2017 4:04PM Bipolar disorder Jan 06 2017 4:04PM Encounter for supervision of normal preg onofre in multigravida in first trimester Jan 27 2017 3:58PM Encounter for supervision of normal preg onofre in multigravida in first trimester Feb 11 2017 12:09PM Payers Insurance Name Company Name Plan Name Plan Number Policy Number Javier cy Group Number Start Date BCBS Bcbs Of [place] [id number] Mo 2011 [employer] - [place] - [place] State [place] Amer[employer] [place] [id number] N/A [place] Medical Assistance Program [place] [employer] Sheron tance Prog [id number] Tuesday, 2009 [place] Rep[employer] Prog - RHC [place] Rep[employer] Prog - RH C [id number] N/A [facility] Comm [id number] N/A [facility] Financial Assistance [facility] Fin ancial Sheron 50 percent Tuesday, April 21, 2015 [employer] [place] State Plan [facility] [id number] N/A History of Encounters Visit Date Visit Type Provider 04/08/[address] Shannon white MD 03/11/[address] Shannon white MD 02/24/[address] Shannon white MD 01/27/[address] Shannon white MD 01/06/2017 Office visit Neisha lara BATHROOM TILING PROFESSIONAL 02/28/2016 Office visit Neisha lara BATHROOM TILING PROFESSIONAL 01/29/2016 Hospital Kassandra Marin MD 12/12/[address] Shannon white MD 11/01/[address] [facility] [address]. Shannon white MD 10/26/2015 Office visit Michelle Sanchez DO 10/19/[address] Shannon white MD 10/10/2015 Office visit Michelle Sanchez DO 09/28/2015 Office visit MICHELLE SANCHEZ DO 09/14/[address] Shannon white MD 09/04/[address] [facility] [address] Shannon white MD [address] Shannon white MD 08/15/2015 Office visit Hali spangler MD 08/11/2015 Voided Neisha lara BATHROOM TILING PROFESSIONAL 07/24/[address] Shannon white MD 07/18/[address] [facility] [address] Shannon white MD 07/17/[address] [facility] [address] Shannon white MD 07/12/[address] Shannon white MD 06/14/[address] Shannon white MD 06/11/2015 Office visit Emily Heredia BATHROOM TILING PROFESSIONAL 05/29/2015 Office visit Sergey Anguiano MD 05/17/[address] Shannon white MD 04/19/[address] Shannon white MD 04/05/2015 Office visit Irina PINEDA RN 03/30/2015 Office visit Sergey Anguiano MD 03/22/[address] Shannon white MD 01/13/[address] ROSANNA GRIGGS MD 01/04/2015 Office visit Irina PINEDA RN 12/16/2014 Office visit Sergey Anguiano MD 09/29/2014 Procedures Neisha lara BATHROOM TILING PROFESSIONAL 08/11/2014 Office visit Sergey Anguiano MD 05/26/2014 Office visit Sergey Anguiano MD 04/05/2014 Office visit Sergey Anguiano MD 09/16/2013 Office visit [place] BATHROOM TILING PROFESSIONAL 08/31/2012 Office visit Sergey Anguiano MD 06/03/2012 Office visit Liane Gamez MD 03/16/2012 Office visit [place] BATHROOM TILING PROFESSIONAL 10/18/2011 Procedures Liane Gamez MD 09/25/2011 Office visit Liane Gamez MD 07/26/2011 Office visit Sergey Anguiano MD 05/27/2011 Office visit Sergey Anguiano MD 11/06/2010 Office visit Sergey Anguiano MD 06/26/2010 Office visit Sergey Anguiano MD 05/28/2010 Office visit Sergey Anguiano MD 09/15/2009 Nurse visit Sergey Anguiano MD 07/18/2009 Office visit Sergey Anguiano MD
--- OUTSIDE RECORDS SUMMARY | 2019-07-07 16:22 | XMS REPORT ---
Author Author Genet Crandall Organization [facility] Address [address] [place], [place] [address] Care Team Providers Care Journeyman Welder Name Role Phone Iliana Crandall PCP Unavailable Allergies and Adverse Reactions Name Reaction Notes NO KNOWN DRUG ALLERGIES Plan of Treatment Planned Activity Comments Planned Date Planned Time Plan/Goal URINE TEST 01/02/2015 12:00 AM Medications Active [...] 2015 4:14PM Amenorrhea Jan 04 2015 2:25PM Payers Insurance Name Company Name Plan Name Plan Number Policy Number Javier cy Group Number Start Date Bcbs Bcbs Of [place] [id number] Mo 2011 [place] Medical Assistance Program [place] [employer] Sher[place] tance Prog [id number] Tuesday, 2009 [place] Commodity Broker Prog - RHC [place] Commodity Broker Prog - RH C [id number] N/A [facility] - C [facility] Comm [id number] N/A History of Encounters Visit Date Visit Type Provider 01/13/[address] Iliana Crandall MD 01/04/2015 Office visit Irina PINEDA RN 12/16/2014 Office visit Sergey Anguiano MD 09/29/2014 Procedures Neisha lara BILL SORTER 08/11/2014 Office visit Sergey Anguiano MD 05/26/2014 Office visit Sergey Anguiano MD 04/05/2014 Office visit Sergey Anguiano MD 09/16/2013 Office visit [place] APRN 08/31/2012 Office visit Sergey Anguiano MD 06/03/2012 Office visit Liane Gamez MD 03/16/2012 Office visit [place] BILL SORTER 10/18/2011 Procedures Liane Gamez MD 09/25/2011 Office visit Liane Gamez MD 07/26/2011 Office visit Sergey Anguiano MD 05/27/2011 Office visit Sergey Anguiano MD 11/06/2010 Office visit Sergey Anguiano MD 06/26/2010 Office visit Sergey Anguiano MD 05/28/2010 Office visit Sergey Anguiano MD 09/15/2009 Nurse visit eSrgey Anguiano MD 07/18/2009 Office visit Sergey Anguiano MD
--- OUTSIDE RECORDS SUMMARY | 2019-07-07 16:22 | XMS REPORT ---
Author Author Genet Anguiano Organization [facility] Address [address] [place], [place] [id number] Care Team Providers Care Field Radio Technician Name Role Phone Sergey Anguiano PCP Unavailable Allergies and Adverse Reactions Name Reaction Notes NO KNOWN DRUG ALLERGIES Plan of Treatment Not available. Medications Active Name Start Date Estimated Completion Date SIG Co mments IMPLANON Subdermal Implant 68 mg implant 1 by subdermal route Vyvanse oral capsule 50 mg 08/11/2014 09/10/2014 take 1 capsule (50 mg) by oral [...] HC BMI BSA BMI Percentile O2 Sat(%) 08/11/2014 3:46:00 PM 108 mmHg 62 mmHg [...] 08/03/2014 12:00 AM CHORIONIC GONADOTROPIN TEST Returned Results Summary Data and Description Results 05/30/2010 [...] 2014 10:34AM ADHD Aug 11 2014 3:51PM Payers Insurance Name Company Name Plan Name Plan Number Policy Number Javier cy Group Number Start Date Bcbs Bcbs Of [place] [id number] Mo , 2011 [place] Medical [place] Sher[place] tance Prog [id number] Tuesday, 2009 [place] Supervisor [employer] Prog - RHC [place] Supervisor [employer] Prog - RH C [id number] N/A [facility] - Community Plan [facility] Comm [id number] N/A History of Encounters Visit Date Visit Type Provider 08/11/2014 Office visit Sergey Anguiano MD 05/26/2014 [...]
--- OUTSIDE RECORDS SUMMARY | 2019-07-07 16:22 | XMS REPORT ---
Author Author Genet Rebolledo Organization [facility] ou Address [address] [place], [place] [address] Care Team Providers Care Analytics Architect Name Role Phone Michelle Rebolledo PCP Unavailable Allergies and Adverse Reactions Name [...] Reviewed 10/10/2015 12:00 AM CULTURE SCREEN ONLY Returned 09/25/2011 12:00 AM CHLAMYDIA CULTURE Returned [...] 0.0302 ug/mLAFP Mo M 0.91 hCG Value 41920.0 mIU/mLhCG MoM 1.27 uE3 Value 1.550 ng/mLuE3 MoM 1.63 SHINE Value 190.730 pg/mLDIA MoM 1.15 OSBR Risk 1 [place] [address]094 DSR (Second Trimester) 1IN 5960 DSR (By [...] BLOOD NEGATIVE NITRITE NEGATIVE LEUK SCREEN NEGATIVE 10/12/2015 7:25 PM COLOR YELLOW APPEARANCE ORION R SPEC GRAV 1.015 pH 6.0 PROTEIN NEGATIVE GLUCOSE NEGATIVE mg/dLKETONE NEGATIVE BILIRUBIN NEGATIVE BLOOD NEGATIVE NITRITE NEGATIVE LEUK SCREEN TRACE CASTS/LPF NEGATIVE /LPFCRYSTALS NEGATIVE MUCOUS THRDS NEGATIVE BACTERIA 1+ EPITH CELLS 1+ SQUAMOUS /HPFTRICHOMONAS NEGATIVE YEAST NEGATIVE 10/22/2015 10:58 PM AMNISURE ROM NEGATIVE History Of Immunizations Name Date Admin Mfg Name Mfg Code Trade Name Lot# Route Inj Vis Given Vis Pub CVX HPV 07/18/2009 Merck & Co., Inc. MSD GARDASIL [id number] Intramuscul ar Left Deltoid 07/18/2009 05/23/2006 999 Tdap 09/14/2015 GlaxoSm[employer] Favorine SKB BOOSTRIX [id number] Intramuscular Right Deltoid 09/14/2015 [...] B Strep Screening, Oct 10 2015 2:27PM Payers Insurance Name Company Name Plan Name Plan Number Policy Number Javier cy Group Number Start Date BCBS Bcbs Of [place] [id number] Mo nday, 2011 [place] Financial Assistance [facility] ancial Sheron 50 percent Tuesday, April 21, 2015 [place] Medical Assistance Program [place] Medical Sher[place] tance Prog [id number] Tuesday, April 21, 2009 [place] Chemical Processing Supervisor Prog - RHC [place] Chemical Processing Supervisor Prog - RH C [id number] N/A [facility] ealthCare [facility] Comm [id number] N/A History of Encounters Visit Date Visit Type Provider 10/26/2015 Office visit Michelle Rebolledo DO 10/19/[address] Shannon white MD 10/10/2015 Office visit Michelle Rebolledo DO 09/28/2015 Office visit MICHELLE REBOLLEDO DO 09/14/[address] Shannon white MD 09/04/[address] [facility] [address] Shannon white MD [address] Shannon white MD 08/15/2015 Office visit Hali spangler MD 08/11/2015 Voided Neisha lara PROP SAWYER 07/24/[address] Shannon white MD 07/18/[address] [facility] [address] Shannon white MD 07/12/[address] Shannon white MD 06/14/[address] Shannon white MD 06/11/2015 Office visit Emily Heredia APRN 05/29/2015 Office visit Sergey Anguiano MD 05/17/[address] Shannon white MD 04/19/[address] Shannon white MD 04/05/2015 Office visit Irina PINEDA RN 03/30/2015 Office visit Sergey Anguiano MD 03/22/[address] Shannon white MD 01/13/[address] ROSANNA GRIGGS MD 01/04/2015 Office visit Irina PINEDA RN 12/16/2014 Office visit Sergey Anguiano MD 09/29/2014 Procedures Neisha lara PROP SAWYER 08/11/2014 Office visit Sergey Anguiano MD 05/26/2014 Office visit Sergey Anguiano MD 04/05/2014 Office visit Sergey Anguiano MD 09/16/2013 Office visit [place] PROP SAWYER 08/31/2012 Office visit Sergey Anguiano MD 06/03/2012 Office visit Liane Gamez MD 03/16/2012 Office visit [place] PROP SAWYER 10/18/2011 Procedures Liane Gamez MD 09/25/2011 Office visit Liane Gamez MD 07/26/2011 Office visit Sergey Anguiano MD 05/27/2011 Office visit Sergey Anguiano MD 11/06/2010 Office visit Sergey Anguiano MD 06/26/2010 Office visit Sergey Anguiano MD 05/28/2010 Office visit Sergey Anguiano MD 09/15/2009 Nurse visit Sergey Anguiano MD 07/18/2009 Office visit Sergey Anguiano MD
--- OUTSIDE RECORDS SUMMARY | 2019-07-07 16:22 | XMS REPORT ---
Author Author Genet Anguiano Organization [facility] Address [address] [place], [place] [address] Care Team Providers Care Burrer Marker Axle Name Role Phone Sergey Anguiano PCP Unavailable Allergies and Adverse Reactions Name Reaction Notes NO KNOWN DRUG ALLERGIES Plan of Treatment Not available. Medications Active Name Start Date Estimated Completion Date SIG Co mments Implanon 68 mg subdermal implant implant 1 by subdermal route Name Start Date Expiration Date SIG Comments [...] by oral route daily Loestrin Fe 20 (28-Day) 1 mg-20 mcg (21)/75 mg (7) oral ta blet 11/06/2010 09/25/2011 take 1 tablet by oral route once daily for 30 days promethazine-codeine 6.25-10 mg/5 mL oral syrup 03/16/2012 06/03/2012 take 5 milliliters by oral route every 4-6 hours as needed, not to exceed 30 mL in 24 hours estradiol 1 mg oral tablet 09/16/2013 05/26/2014 take 1 tablet (1 mg) by oral route once daily Problem List Description Status Onset ADHD Active Bipolar Disorder Active Vital Signs Date Time BP-Sys(mm[Hg] BP-Gita(mm[Hg]) HR(bpm) RR(rpm) Temp WT HT HC BMI BSA BMI Percentile O2 Sat(%) 12/16/2014 11:11:00 AM 100 mmHg 62 mmHg [...] 3:20P M Epistaxis Dec 16 2014 11:14AM Payers Insurance Name Company Name Plan Name Plan Number Policy Number Javier cy Group Number Start Date Bcbs Bcbs Of [place] [id number] Mo nd, 2011 [place] Medical Assistance Program [place] Medical Sher[place] tance Prog [id number] Tuesday, 2009 [place] Mis Manager Prog - RHC [place] Mis Manager Prog - RH C [id number] N/A [facility] [id number] N/A History of Encounters Visit Date Visit Type Provider 12/16/2014 Office visit Sergey Anguiano MD 09/29/2014 Procedures Neisha AmorDiana lara TURF KEEPER 08/11/2014 Office visit Sergey Anguiano MD 05/26/2014 Office visit Sergey Anguiano MD 04/05/2014 Office visit Sergey Anguiano MD 09/16/2013 Office visit [place] TURF KEEPER 08/31/2012 Office visit Sergey Anguiano MD 06/03/2012 Office visit Liane Gamez MD 03/16/2012 Office visit [place] TURF KEEPER 10/18/2011 Procedures Liane Gamez MD 09/25/2011 Office visit Liane Gamez MD 07/26/2011 Office visit Sergey Anguiano MD 05/27/2011 Office visit eSrgey Anguiano MD 11/06/2010 Office visit Sergey Anguiano MD 06/26/2010 Office visit Sergey Anguiano MD 05/28/2010 Office visit Sergey Anguiano MD 09/15/2009 Nurse visit Sergey Anguiano MD 07/18/2009 Office visit Sergey Anguiano MD
--- OUTSIDE RECORDS SUMMARY | 2019-07-07 16:23 | XMS REPORT ---
Author Author Genet Brown Organization [facility] ou Address [address] [place], [place] [address] Care Team Providers Care Jewelry Sales Name Role Phone Shannon Brown PCP Sergey Anguiano PreferredProvider Allergies and Adverse Reactions Name Reaction Notes NO KNOWN DRUG ALLERGIES Plan of Treatment Planned Activity Comments Planned Date Planned Time Plan/Goal AFP ser maternal 04/08/2017 12:00 AM Ultrasound, OB complete >14 weeks 04/22/2017 12:00 A M test, urine 01/02/2015 12:00 AM Medications Active [...] 12:00 AM VFC Gardasil (HPV Vaccine) Reviewed 04/08/2017 12:00 AM IM ADM PRQ ID SUBQ/IM NJXS 1 VACCINE Rev iewed 04/08/2017 12:00 AM INFLUENZA VAC 4 VALENT PRSRV FREE 3 YRS PLUS IM Reviewed 09/15/2009 12:00 AM IMMUNIZATION ADMIN Reviewed [...] 03/22/2015 5:08 PM RPR Non Reactive HBsAg Yonise n Negative Rubella Antibodies, IgG 1.99 Index [...] Left Deltoid 07/18/2009 05/23/2006 999 Tdap 09/14/2015 GlaxLopoly SKB BOOSTRIX [id number] Intramuscular Right Deltoid 09/14/2015 06/14/2014 115 Influenza 04/08/2017 GlaxLopoly SKB Fluarix [id number] Intramuscul ar Right Deltoid 04/08/2017 11/25/2014 158 History of Past Illness Name Date of [...] in first trimester Feb 11 2017 12:09PM Normal in multigravida in second trimester Apr 08 2017 2:28PM Flu Vaccine Apr 08 2017 2:45PM Payers Insurance Name Company Name Plan Name Plan Number Policy Number Javier cy Group Number Start Date BCBS Bcbs Of [place] [id number] [place] nd, 2011 [facility] [place] State Plan [facility] State [facility] [id number] N/A [place] Medical [place] Medical [place] tance Prog [id number] Tuesday, 2009 [place] Material Requisitioner Prog - RHC [place] Material Requisitioner Prog - RH C [id number] N/A [facility] Comm [id number] N/A [facility] Financial Assistance [facility] Fin ancial Sheron 50 percent Tuesday, April 21, 2015 [employer] [place] State Plan [facility] State Plan [id number] N/A History of Encounters Visit Date Visit Type Provider 04/08/[address] Shannon white MD 03/11/[address] Shannon white MD 02/24/[address] Shannon white MD 01/27/[address] Shannon white MD 01/06/2017 Office visit Neisha lara MEDICAL DETAILIST 02/28/2016 Office visit Neisha lara MEDICAL DETAILIST 01/29/2016 Hospital Kassandra Marin MD 12/12/[address] Shannon white MD 11/01/[address] [facility] [address] Shannon white MD 10/26/2015 Office visit Michelle Sanchez DO 10/19/[address] Shannon white MD 10/10/2015 Office visit Michelle Sanchez DO 09/28/2015 Office visit MICHELLE SANCHEZ DO 09/14/[address] Shannon white MD 09/04/[address] Shannon white MD [address] Shannon white MD 08/15/2015 Office visit Hali spangler MD 08/11/2015 Voided Neisha lara MEDICAL DETAILIST 07/24/[address] Shannon white MD 07/18/[address] [facility] [address] Shannon white MD 07/17/[address] [facility] [address] Shannon white MD 07/12/[address] Shannon white MD 06/14/[address] Shannon white MD 06/11/2015 Office visit Emily Heredia MEDICAL DETAILIST 05/29/2015 Office visit Sergey Anguiano MD 05/17/[address] Shannon white MD 04/19/[address] Shannon white MD 04/05/2015 Office visit Irina PINEDA RN 03/30/2015 Office visit Sergey Anguiano MD 03/22/[address] Shannon white MD 01/13/[address] ROSANNA GRIGGS MD 01/04/2015 Office visit Irina PINEDA RN 12/16/2014 Office visit Sergey Anguiano MD 09/29/2014 Procedures Neisha lara MEDICAL DETAILIST 08/11/2014 Office visit Sergey Anguiano MD 05/26/2014 [...]
--- OUTSIDE RECORDS SUMMARY | 2019-07-07 16:23 | XMS REPORT ---
Author Author Genet Crandall Organization [facility] Address [address] [place], [place] [address] Care Team Providers Care Pollution Control Engineer Name Role Phone Iliana Crandall PCP Unavailable Allergies and Adverse Reactions Name Reaction Notes NO KNOWN DRUG ALLERGIES Plan of Treatment Planned Activity Comments Planned Date Planned Time Plan/Goal N.GONORRHOEAE DNA AMP PROB 01/13/2015 12:00 AM CHLAMYDIA CULTURE 01/13/2015 12:00 AM HIV-1ANTIBODY 01/13/2015 12:00 AM URINALYSIS AUTO W/SCOPE 01/13/2015 12:00 AM OBSTETRIC PANEL 01/13/2015 12:00 AM CHORIONIC GONADOTROPIN TEST 01/13/2015 [...] Group Number Start Date Bcbs Bcbs Of [place] [id number] Mo , 2011 [place] Medical Assistance Program [place] Medical Sher[place] tance Prog [id number] Tuesday, 2009 [place] Sketch Liner Prog - RHC [place] Sketch Liner Prog - RH C [id number] N/A [facility] Comm [id number] N/A History of Encounters Visit Date Visit Type Provider 01/13/[address] Iliana Crandall MD 01/04/2015 Office visit Irina PINEDA RN 12/16/2014 Office visit Sergey Anguiano MD 09/29/2014 Procedures Neisha lara DISH PERSON 08/11/2014 Office visit Sergey Anguiano MD 05/26/2014 Office visit Sergey Anguiano MD 04/05/2014 Office visit Sergey Anguiano MD 09/16/2013 Office visit [place] DISH PERSON 08/31/2012 Office visit Sergey Anguiano MD 06/03/2012 Office visit Liane Gamez MD 03/16/2012 Office visit [place] DISH PERSON 10/18/2011 Procedures Liane Gamez MD 09/25/2011 Office visit Liane Gamez MD 07/26/2011 Office visit Sergey Anguiano MD 05/27/2011 Office visit Sergey Anguiano MD 11/06/2010 Office visit Sergey Anguiano MD 06/26/2010 Office visit Sergey Anguiano MD 05/28/2010 Office visit Sergey Anguiano MD 09/15/2009 Nurse visit Sergey Anguiano MD 07/18/2009 Office visit Sergey Anguiano MD
--- OUTSIDE RECORDS SUMMARY | 2019-07-07 16:23 | XMS REPORT ---
Author Author Genet Escobar Organization [facility] Address [address] [place], [place] [address] Care Team Providers Care Drier Attendant Name Role Phone Irina Escobar PCP Unavailable Allergies and Adverse Reactions Name Reaction Notes NO KNOWN DRUG ALLERGIES Plan of Treatment Planned Activity Comments Planned Date Planned Time Plan/Goal HIV-1ANTIBODY 03/22/2015 12:00 AM URINALYSIS AUTO W/SCOPE 03/22/2015 12:00 AM URINALYSIS AUTO W/O SCOPE 04/05/2015 12:00 AM URINE TEST 01/02/2015 12:00 AM Medications Active Name Start Date Estimated Completion Date SIG Co mments Vitamin oral tablet take 1 table t by oral route once daily hydrocortisone acetate 1 % topical cream 03/30/2015 apply to the affected area(s) by topical route 2 times per day triamcinolone acetonide 0.1 % topical cream 04/05/2015 apply a thin layer to the affected area(s) by topical route 2 times per day Name Start Date Expiration Date SIG Comments [...] by oral route once for 1 day Discontinued Name Start Date Discontinued Date SIG [...] HC BMI BSA BMI Percentile O2 Sat(%) 04/05/2015 4:09:00 PM 120 mmHg 60 mmHg [...] AM CHLAMYDIA CULTURE Returned 03/22/2015 12:00 AM OBSTETRIC PANEL Returned 03/22/2015 12:00 AM US PREG UTERUS REAL TIME W/IMAGE DCMTN T RANSVAG Returned 09/25/2011 12:00 AM CHLAMYDIA CULTURE Returned [...] n Negative Rubella Antibodies, IgG 1.99 Index History Of Immunizations Name Date Admin Mfg [...] nonspecific skin eruption Apr 05 2015 4:12PM Payers Insurance Name Company Name Plan Name Plan Number Policy Number Javier Group Number [facility] Date [facility] [id number] 2011 [place] Medical Assistance Program [place] Medical Sher[place] tance Prog [id number] Tuesday, 2009 [place] Nail Technician Prog - RHC [place] Nail Technician Prog - RH C [id number] N/A [facility] - [facility] Comm [id number] N/A History of Encounters Visit Date Visit Type Provider 04/05/2015 Office visit Irina PINEDA RN 03/30/2015 Office visit Sergey Anguiano MD 03/22/[address] Shannon white MD 01/13/[address] ROSANNA GRIGGS MD 01/04/2015 Office visit Irina PINEDA RN 12/16/2014 Office visit Sergey Anguiano MD 09/29/2014 Procedures Neisha lara HIGH SCHOOL SCIENCE TUTOR 08/11/2014 Office visit Sergey Anguiano MD 05/26/2014 Office visit Sergey Anguiano MD 04/05/2014 Office visit Sergey Anguiano MD 09/16/2013 Office visit [place] HIGH SCHOOL SCIENCE TUTOR 08/31/2012 Office visit Sergey Anguiano MD 06/03/2012 Office visit Liane Gamez MD 03/16/2012 Office visit [place] HIGH SCHOOL SCIENCE TUTOR 10/18/2011 Procedures Liane Gamez MD 09/25/2011 Office visit Liane Gamez MD 07/26/2011 Office visit Sergey Anguiano MD 05/27/2011 Office visit Sergey Anguiano MD 11/06/2010 Office visit Sergey Anguiano MD 06/26/2010 Office visit Sergey Anguiano MD 05/28/2010 Office visit Sergey Anguiano MD 09/15/2009 Nurse visit Sergey Anguiano MD 07/18/2009 Office visit Sergey Anguiano MD
--- OUTSIDE RECORDS SUMMARY | 2019-07-07 16:23 | XMS REPORT ---
Author Author Genet Brown Organization [facility] Address [address] [place], [place] [address] Care Team Providers Care Mayonnaise Mixer Name Role Phone Shannon Brown PCP Unavailable Allergies and Adverse Reactions Name Reaction Notes NO KNOWN DRUG ALLERGIES Plan of Treatment Planned Activity Comments Planned Date Planned Time Plan/Goal URINALYSIS AUTO W/O SCOPE 04/05/2015 12:00 AM OB US >/= 14 WKS SNGL FETUS 06/23/2015 12:00 AM URINE TEST 01/02/2015 12:00 AM Medications Active Name Start Date Estimated Completion Date SIG Co mments Vitamin oral tablet take 1 table t by oral route once daily Vistaril 25 mg oral capsule 05/17/2015 take 1 capsule (25 mg) by oral route 3 times per day Zofran ODT 4 mg oral tablet,disintegrating 05/29/2015 dissolve 1-2 tablets by oral route 4 times a day as needed Name Start Date Expiration Date [...] by topical route 2 times per day Discontinued Name Start Date Discontinued Date [...] by topical route 2 times per day permethrin 5 % topical cream 05/25/2015 05/29/2015 chance ly (thoroughly massage into skin from head to soles of feet) by topical route once leave on for 8-14 hr, then remove by thorough washing Problem List Description Status Onset ADHD Active Bipolar Disorder Active Vital Signs Date Time BP-Sys(mm[Hg] BP-Gita(mm[Hg]) HR(bpm) RR(rpm) Temp WT HT HC BMI BSA BMI Percentile O2 Sat(%) 06/11/2015 3:40:00 PM 122 mmHg 78 mmHg [...] 12:00 AM COMPREHEN METABOLIC PANEL Reviewed 06/11/2015 12:00 AM URINE CULTURE/COLONY COUNT Returned 06/11/2015 4:11 PM URINALYSIS AUTO W/O SCOPE Reviewed 09/25/2011 12:00 AM CHLAMYDIA CULTURE Returned [...] 0.0302 ug/mLAFP Mo M 0.91 hCG Value 77276.0 mIU/mLhCG MoM 1.27 uE3 Value 1.550 ng/mLuE3 MoM 1.63 GITA Value 190.730 pg/mLDIA MoM 1.15 OSBR Risk 1 [place] [address] DSR (Second Trimester) 1IN 5960 DSR (By [...] 2.07 #MONO 0.63 #EOS 0.25 #BASO 0.03 History Of Immunizations Name Date Admin Mfg [...] , First Normal Jun 14 2015 11:29AM Payers Insurance Name Company Name Plan Name Plan Number Policy Number Javier cy Group Number Start Date BCBS Bcbs Of [place] [id number] Mo 2011 [place] Medical Assistance Program [place] Medical Sheron tance Prog [id number] Tuesday, 2009 [place] Assistant Librarian Prog - RHC [place] Assistant Librarian Prog - RH C [id number] N/A [facility] - RHC - Community Plan [facility] RHC Comm [id number] N/A History of Encounters Visit Date Visit Type Provider 06/14/[address] Shannon white MD [...] Sergey Anguiano MD 09/29/2014 Procedures Neisha lara HEALTHCARE ADMINISTRATIVE ASSISTANT 08/11/2014 Office visit Sergey Anguiano MD 05/26/2014 Office visit Sergey Anguiano MD 04/05/2014 Office visit Sergey Anguiano MD 09/16/2013 Office visit [place] APRN 08/31/2012 Office visit Sergey Anguiano MD 06/03/2012 Office visit Liane Gamez MD 03/16/2012 Office visit [place] HEALTHCARE ADMINISTRATIVE ASSISTANT 10/18/2011 Procedures Liane Gamez MD 09/25/2011 Office visit Liane Gamez MD 07/26/2011 Office visit Sergey Anguiano MD 05/27/2011 Office visit Sergey Anguiano MD 11/06/2010 Office visit Sergey Anguiano MD 06/26/2010 Office visit Sergey Anguiano MD 05/28/2010 Office visit Sergey Anguiano MD 09/15/2009 Nurse visit Sergey Anguiano MD 07/18/2009 Office visit Sergey Anguiano MD
--- OUTSIDE RECORDS SUMMARY | 2019-07-07 16:24 | XMS REPORT ---
Author Genet Landry Organization [facility] Address [address] [place], [place] [address] Care Team Providers Care Compensation Adjuster Name Role Phone Neisha Khoury PCP Unavailable Sergey Anguiano PreferredProvider Unavailable Allergies and Adverse Reactions Name Reaction Notes NO KNOWN DRUG ALLERGIES Plan of Treatment Planned Activity Comments Planned Date Planned Time Plan/Goal Gonorrhea 01/06/2017 12:00 AM Chlamydia 01/06/2017 12:00 AM HIV-1 antibody 01/06/2017 12:00 AM UA with Culture and Sensitivity 01/06/2017 12:00 AM panel (CBC with differential, a utomated, Hepatitis B surface antigen (HBsAg), Rubella antibody, RBC antibody screen, Blood typing (ABO and Rh(D), RPR w/ Reflex to TP 01/06/2017 12:00 AM GLUCOSE 50 gm 01/06/2017 12:00 AM HEPATITIS C AB 01/06/2017 12:00 AM TRICHOMONAS AMPLIFIED 01/06/2017 12:00 AM TRICHOMONAS AMPLIFIED 01/06/2017 12:00 AM test, urine 01/02/2015 12:00 AM Medications Active Name Start Date Estimated Completion Date SIG Co mments Vitamin oral Name Start Date Expiration Date SIG Comments [...] Take one tablet daily Prozac oral 01/06/2017 Problem List Description Status Onset ADHD Active [...] Reviewed 01/06/2017 4:55 PM URINE TEST Reviewed 07/18/2009 12:00 AM IMMUNIZATION ADMIN Reviewed [...] 01/06/2017 4:55 PM Test, Urine positi ve History Of Immunizations Name Date Admin Mfg Name Mfg Code Trade Name Lot# Route Inj Vis Given Vis Pub CVX HPV 07/18/2009 Merck & Co., Inc. MSD GARDASIL [id number] Intramuscul ar Left Deltoid 07/18/2009 05/23/2006 999 Tdap 09/14/2015 Excelimmune SKB BOOSTRIX [id number] Intramuscular Right Deltoid 09/14/2015 [...] 4:04PM Bipolar disorder Jan 06 2017 4:04PM Payers Insurance Name Company Name Plan Name Plan Number Policy Number Javier cy Group Number Start Date BCBS B[place]bs Of [place] [id number] [place], 2011 [employer] [place] State Plan [employer] [facility] [id number] N/A [place] Medical [place] Program [place] Medical Sher[place] tance Prog [id number] Tuesday, 2009 [place] Hose Finisher Prog - RHC [place] Hose Finisher Prog - RH C [id number] N/A [facility] Comm [id number] N/A [facility] Financial Assistance [facility] ancial Sheron 50 percent Tuesday, April 21, 2015 History of Encounters Visit Date Visit Type Provider 01/06/2017 Office visit Neisha lara SEO PROFESSIONAL 02/28/2016 Office visit Neisha lara SEO PROFESSIONAL 01/29/2016 Hospital Kassandra Marin MD 12/12/[address] Shannon white MD 11/01/[address] Shannon white MD 10/26/2015 Office visit Michelle Sanchez DO 10/19/[address] Shannon white MD 10/10/2015 Office visit Michelle Sanchez DO 09/28/2015 Office visit MICHELLE SANCHEZ DO 09/14/[address] Shannon white MD 09/04/[address] [facility] [address] Shannon white MD [address] Shannon white MD 08/15/2015 Office visit Hali spangler MD 08/11/2015 Voided Neisha lara SEO PROFESSIONAL 07/24/[address] Shannon white MD 07/18/[address] [facility] [address] Shannon white MD 07/17/[address] [facility] [address] Shannon white MD 07/12/[address] Shannon white MD 06/14/[address] Shannon white MD 06/11/2015 Office visit Emily Heredia SEO PROFESSIONAL 05/29/2015 Office visit Sergey Anguiano MD 05/17/[address] Shannon white MD 04/19/[address] Shannon white MD 04/05/2015 Office visit Irina PINEDA RN 03/30/2015 Office visit Sergey Anguiano MD 03/22/[address] Shannon white MD 01/13/[address] ROSANNA GRIGGS MD 01/04/2015 Office visit Irina PINEDA RN 12/16/2014 Office visit Sergey Anguiano MD 09/29/2014 Procedures Neisha lara SEO PROFESSIONAL 08/11/2014 Office visit Sergey Anguiano MD 05/26/2014 Office visit Sergey Anguiano MD 04/05/2014 Office visit Sergey Anguiano MD 09/16/2013 Office visit [place] SEO PROFESSIONAL 08/31/2012 Office visit Sergey Anguiano MD 06/03/2012 Office visit Liane Gamez MD 03/16/2012 Office visit [place] SEO PROFESSIONAL 10/18/2011 Procedures Liane Gamez MD 09/25/2011 Office visit Liane Gamez MD 07/26/2011 Office visit Sergey Anguiano MD 05/27/2011 Office visit Sergey Anguiano MD 11/06/2010 Office visit Sergey Anguiano MD 06/26/2010 Office visit Sergey Anguiano MD 05/28/2010 Office visit Sergey Anguiano MD 09/15/2009 Nurse visit Sergey Anguiano MD 07/18/2009 Office visit Sergey Anguiano MD
--- OUTSIDE RECORDS SUMMARY | 2019-07-07 16:24 | XMS REPORT ---
Author Author Genet Anguiano Organization [facility] oup Address [address] [place], [place] [address] Care Team Providers Care Cloth Coverer Name Role Phone Sergey Anguiano PCP Unavailable Allergies and Adverse Reactions Name Reaction Notes NO KNOWN DRUG ALLERGIES Plan of Treatment Planned Activity Comments Planned Date Planned Time Plan/Goal URINALYSIS AUTO W/O SCOPE 04/05/2015 12:00 AM ALPHA-FETOPROTEIN SERUM 05/29/2015 12:00 AM COMPLETE CBC W/AUTO DIFF WBC 05/29/2015 12:00 AM COMPREHEN METABOLIC PANEL 05/29/2015 12:00 AM URINE TEST 01/02/2015 12:00 AM [...] HC BMI BSA BMI Percentile O2 Sat(%) 05/29/2015 3:21:00 PM 100 mmHg 64 mmHg [...] Hyperemesis arising during May 29 2015 3:24PM Payers Insurance Name Company Name Plan Name Plan Number Policy Number Javier cy Group Number Start Date BCBS Bcbs Of [place] [id number] Mo 2011 [place] Medical Assistance Program [place] Medical Sher[place] tance Prog [id number] Tuesday, 2009 [place] Pharmacy Laboratory Technician Prog - RHC [place] Pharmacy Laboratory Technician Prog - RH C [id number] N/A [facility] - C - [facility] Plan [facility] RHC Comm [id number] N/A History of Encounters Visit Date Visit Type Provider 05/29/2015 Office visit Sergey Anguiano MD 05/17/[address] Shannon white MD 04/19/[address] Shannon white MD 04/05/2015 Office visit Irina PINEDA RN 03/30/2015 Office visit Sergey Anguiano MD 03/22/[address] Shannon white MD 01/13/[address] ROSANNA GRIGGS MD 01/04/2015 Office visit Irina PINEDA RN 12/16/2014 Office visit Sergey Anguiano MD 09/29/2014 Procedures Neisha lara MANAGER SQL 08/11/2014 Office visit Sergey Anguiano MD 05/26/2014 [...]
--- OUTSIDE RECORDS SUMMARY | 2019-07-07 16:24 | XMS REPORT ---
Author Author Genet Rebolledo Organization [facility] ou Address [address] [place], [place] [address] Care Team Providers Care Offbearer Name Role Phone Michelle Rebolledo PCP Unavailable [...] 0.0302 ug/mLAFP Mo M 0.91 hCG Value 55074.0 mIU/mLhCG MoM 1.27 uE3 Value 1.550 ng/mLuE3 MoM 1.63 SHINE Value 190.730 pg/mLDIA MoM 1.15 OSBR [place] 1 [place] [address] DSR (Second Trimester) 1IN 5960 DSR (By [...] Left Deltoid 07/18/2009 05/23/2006 999 Tdap 09/14/2015 [employer] SKB BOOSTRIX [id number] Intramuscular Right Deltoid 09/14/2015 [...] Group Number Start Date BCBS Bcbs Of [place] [id number] Mo nday, 2011 [employer] Financial Assistance [facility] ancial Sheron 50 percent Tuesday, April 21, 2015 [place] Medical [place] Medical Sher[place] tance Prog [id number] Tuesday, April 21, 2009 [place] Speaker Mounter Prog - RHC [place] Speaker Mounter Prog - RH C [id number] N/A [facility]althCare [facility] Comm [id number] N/A History of Encounters Visit Date Visit Type Provider 10/26/2015 Office visit Michelle Rebolledo DO 10/19/[address] Shannon white MD 10/10/2015 Office visit Michelle Rebolledo DO 09/28/2015 Office visit MICHELLE REBOLLEDO DO 09/14/[address] Shannon white MD 09/04/[address] [facility] [address] Shannon white MD [address] Shannon white MD 08/15/2015 Office visit Hali spangler MD 08/11/2015 Voided Neisha lara NURSING STUDENT 07/24/[address] Shannon white MD 07/18/[address] [facility] [address] Shannon white MD 07/12/2015 Office [...] Sergey Anguiano MD 09/29/2014 Procedures Neisha lara NURSING STUDENT 08/11/2014 Office visit Sergey Anguiano MD 05/26/2014 Office visit Sergey Anguiano MD 04/05/2014 Office visit Sergey Anguiano MD 09/16/2013 Office visit [place] NURSING STUDENT 08/31/2012 Office visit Sergey Anguiano MD 06/03/2012 Office visit Liane Gamez MD 03/16/2012 Office visit [place] NURSING STUDENT 10/18/2011 Procedures Liane Gamez MD 09/25/2011 Office visit Liane Gamez MD 07/26/2011 Office visit Sergey Anguiano MD 05/27/2011 Office visit Sergey Anguiano MD 11/06/2010 Office visit Sergey Anguiano MD 06/26/2010 Office visit Sergey Anguiano MD 05/28/2010 Office visit Sergey Anguiano MD 09/15/2009 Nurse visit Sergey Anguiano MD 07/18/2009 Office visit Sergey Anguiano MD
--- OUTSIDE RECORDS SUMMARY | 2019-07-07 16:25 | XMS REPORT ---
Author Author Genet Brown Organization [facility] ou Address [address] [place], [place] [address] Care Team Providers Care Plumbing Warehouse Helper Name Role Phone Shannon Brown PCP Unavailable [...] 0.0302 ug/mLAFP Mo M 0.91 hCG Value 95291.0 mIU/mLhCG MoM 1.27 uE3 Value 1.550 ng/mLuE3 MoM 1.63 SHINE Value 190.730 pg/mLDIA MoM 1.15 OSBR [place] 1 [place] [address] DSR (Second Trimester) 1IN 5960 DSR (By [...] Group Number Start Date BCBS Bcbs Of [place] [id number] Mo 2011 [place] Medical Assistance Program [place] Medical Sher[place] tance Prog [id number] Tuesday, 2009 [place] Architectural Drafter Prog - RHC [place] Architectural Drafter Prog - RH C [id number] N/A [facility] Comm [id number] N/A History of Encounters Visit Date Visit Type Provider 09/28/2015 Office visit MICHELLE REBOLLEDO DO 09/14/[address] Shannon white MD 09/04/[address] [facility] [address] Shannon white MD [address] Shannon white MD 08/15/2015 Office visit Hali spangler MD 08/11/2015 Voided Neisha lara MAIL EXAMINER 07/24/[address] Shannon white MD 07/18/[address] [facility] [address] Shannon white MD 07/12/[address] Shannon white MD 06/14/[address] Shannon white MD 06/11/2015 Office visit Emily Heredia MAIL EXAMINER 05/29/2015 Office visit Sergey Anguiano MD 05/17/[address] Shannon white MD 04/19/[address] Shannon white MD 04/05/2015 Office visit Irina PINEDA RN 03/30/2015 Office visit Sergey Anguiano MD 03/22/[address] Shannon white MD 01/13/[address] ROSANNA GRIGGS MD 01/04/2015 Office visit Irina PINEDA RN 12/16/2014 Office visit Sergey Anguiano MD 09/29/2014 Procedures Neisha lara MAIL EXAMINER 08/11/2014 Office visit Sergey Anguiano MD 05/26/2014 Office visit Sergey Anguiano MD 04/05/2014 Office visit Sergey Anguiano MD 09/16/2013 Office visit [place] MAIL EXAMINER 08/31/2012 Office visit Sergey Anugiano MD 06/03/2012 Office visit Liane Gamez MD 03/16/2012 Office visit [place] MAIL EXAMINER 10/18/2011 Procedures Liane Gamez MD 09/25/2011 Office visit Liane Gamez MD 07/26/2011 Office visit Sergey Anguiano MD 05/27/2011 Office visit Sergey Anguiano MD 11/06/2010 Office visit Sergey Anguiano MD 06/26/2010 Office visit Sergey Anguiano MD 05/28/2010 Office visit Sergey Anguiano MD 09/15/2009 Nurse visit Sergey Anguiano MD 07/18/2009 Office visit Sergey Anguiano MD
--- OUTSIDE RECORDS SUMMARY | 2019-07-07 16:25 | XMS REPORT ---
Author Author Genet Brown Organization [facility] oup Address [address] [place], [place] [address] Care Team Providers Care School Resource Officer Name Role Phone Shannon Brown PCP Unavailable Sergey Anguiano PreferredProvider Unavailable Allergies and Adverse Reactions Name Reaction Notes NO KNOWN DRUG ALLERGIES Plan of Treatment Planned Activity Comments Planned Date Planned Time Plan/Goal test, urine 01/02/2015 12:00 AM Medications Active Name Start Date Estimated Completion Date SIG Co mments Vitamin oral Zofran ODT 8 mg oral tablet,disintegrating 02/24/2017 take 1 tablet (8 mg) and place on top of the tongue where it will dissolve, then swallow by oral route every 8 hrs as needed for nausea w Name Start Date Expiration Date SIG Comments [...] HGB 14.0 g/ dLHCT 40.90 %MCV 86.0 fLH 29.40 pgMCHC 34.20 g/dLRDW SD 39 RDW [...] Number Start Date BCBS Bcbs Of [place] [id number] Mo 2011 [employer] - [place]HC - [place] State Plan [employer] - [facility] State Plan [id number] N/A [place] Medical Assistance Program [place] Medical Sheron tance Prog [id number] Tuesday, 2009 [place] Kiln Worker Prog - RHC [place] Kiln Worker Prog - RH C [id number] N/A [facility] Comm [id number] N/A [employer] [facility] Financial Assistance [employer] [facility] Fin ancial Sheron 50 percent Tuesday, April 21, 2015 [employer] [place] State Plan [facility] [id number] N/A History of Encounters Visit Date Visit Type Provider 03/11/[address] Shannon white MD 02/24/[address] Shannon white MD 01/27/[address] Shannon white MD 01/06/2017 Office visit Neisha lara PYTHON ENGINEER 02/28/2016 Office visit Neisha lara PYTHON ENGINEER 01/29/2016 [facility] Kassandra Marin MD 12/12/[address] Shannon white MD 11/01/[address] [facility] [address] Shannon white MD 10/26/2015 Office visit Michelle Sanchez DO 10/19/[address] Shannon white MD 10/10/2015 Office visit Michelle Sanchez DO 09/28/2015 Office visit MICHELLE SANCHEZ DO 09/14/[address] Shannon white MD 09/04/[address] [facility] [address] Shannon white MD [address] Shannon white MD 08/15/2015 Office visit Hali spangler MD 08/11/2015 Voided Neisha AmorDiana Cadet n PYTHON ENGINEER 07/24/[address] Shannon white MD 07/18/[address] [facility] [address] Shannon white MD 07/17/[address] [facility] [address] Shannon white MD 07/12/[address] Shannon white MD 06/14/[address] Shannon white MD 06/11/2015 Office visit Emily Heredia PYTHON ENGINEER 05/29/2015 Office visit Sergey Anguiano MD 05/17/[address] Shannon white MD 04/19/[address] Shannon white MD 04/05/2015 Office visit Irina PINEDA RN 03/30/2015 Office visit Sergey Anguiano MD 03/22/[address] Shannon white MD 01/13/[address] ROSANNA GRIGGS MD 01/04/2015 Office visit Irina PINEDA RN 12/16/2014 Office visit Sergey Anguiano MD 09/29/2014 Procedures Neisha Cadet n PYTHON ENGINEER 08/11/2014 Office visit Sergey Anguiano MD 05/26/2014 Office visit Sergey Anguiano MD 04/05/2014 Office visit Sergey Anguiano MD 09/16/2013 Office visit [place] PYTHON ENGINEER 08/31/2012 Office visit Sergey Anguiano MD 06/03/2012 Office visit Liane Gamez MD 03/16/2012 Office visit [place] PYTHON ENGINEER 10/18/2011 Procedures Liane Gamez MD 09/25/2011 Office visit Liane Gamez MD 07/26/2011 Office visit Sergey Anguiano MD 05/27/2011 Office visit Sergey Anguiano MD 11/06/2010 Office visit Sergey Anguiano MD 06/26/2010 Office visit Sergey Anguiano MD 05/28/2010 Office visit Sergey Anguiano MD 09/15/2009 Nurse visit Sergey Anguiano MD 07/18/2009 Office visit Sergey Anguiano MD
--- OUTSIDE RECORDS SUMMARY | 2019-07-07 16:25 | XMS REPORT ---
Author Author Genet Brown Organization [facility] Phys[facility] oup Address [address] [place] [id number] Care Team Providers Care Residential Building Inspector Name Role Phone Shannon Brown PCP Unavailable [...] 06/11/2015 12:00 AM URINE CULTURE/COLONY COUNT Returned 09/25/2011 12:00 AM CHLAMYDIA CULTURE Returned [...] 0.0302 ug/mLAFP Mo M 0.91 hCG Value 58972.0 mIU/mLhCG MoM 1.27 uE3 Value 1.550 ng/mLuE3 MoM 1.63 SHINE Value 190.730 pg/mLDIA MoM 1.15 [place]BR [place] 1 [place] [address] DSR (Second Trimester) 1IN 5960 DSR (By [...] 1.39 #MONO 1.31 #EOS 0.03 #BASO 0.05 History Of Immunizations Name Date Admin Mfg [...] 3:44PM Urinary Frequency Jun 11 2015 3:44PM Payers Insurance Name Company Name Plan Name Plan Number Policy Number Javier cy Group Number Start Date BCBS Bcbs Of [place] [id number] Mo 2011 [place] Medical Assistance Program [place] Medical Sheron tance Prog [id number] Tuesday, 2009 [place] Government Affairs Manager Prog - RHC [place] Government Affairs Manager Prog - RH C [id number] N/A [facility] - Community Plan [facility] Comm [id number] N/A History of Encounters Visit Date Visit Type Provider 07/24/[address] Shannon white MD 07/12/[address] Shannon white MD 06/14/[address] Shannon white MD 06/11/2015 Office visit Emily Heredia APRN 05/29/2015 Office visit Sergye Anguiano MD 05/17/[address] Shannon white MD 04/19/[address] Shannon white MD 04/05/2015 Office visit Irina PINEDA RN 03/30/2015 Office visit Sergey Anguiano MD 03/22/[address] Shannon white MD 01/13/[address] ROSANNA GRIGGS MD 01/04/2015 Office visit Irina PINEDA RN 12/16/2014 Office visit Sergey Anguiano MD 09/29/2014 Procedures Neisha AmorDiana lara BUNDLER 08/11/2014 Office visit Sergey Anguiano MD 05/26/2014 Office visit Sergey Anguiano MD 04/05/2014 Office visit Sergey Anguiano MD 09/16/2013 Office visit [place] BUNDLER 08/31/2012 Office visit Sergey Anguiano MD 06/03/2012 Office visit Liane Gamez MD 03/16/2012 Office visit [place] BUNDLER 10/18/2011 Procedures Liane Gamez MD 09/25/2011 Office visit Liane Gamez MD 07/26/2011 Office visit Sergey Anguiano MD 05/27/2011 Office visit Sergey Anguiano MD 11/06/2010 Office visit Sergey Anguiano MD 06/26/2010 Office visit Sergey Anguiano MD 05/28/2010 Office visit Sergey Anguiano MD 09/15/2009 Nurse visit Sergey Anguiano MD 07/18/2009 Office visit Sergey Anguiano MD
--- OUTSIDE RECORDS SUMMARY | 2019-07-07 16:26 | XMS REPORT ---
Author Author Genet Brown Organization [facility] ou Address [address] [place], [place] [address] Care Team Providers Care Unstacker Name Role Phone Shannon Brown PCP Unavailable [...] 0.0302 ug/mLAFP Mo M 0.91 hCG Value 70585.0 mIU/mLhCG MoM 1.27 uE3 Value 1.550 ng/mLuE3 MoM 1.63 SHINE Value 190.730 pg/mLDIA MoM 1.15 [place] 1 [place] [address] DSR (Second Trimester) 1IN 5960 DSR (By [...] CELLS 1+ SQUAMOUS /HPFTRICHOMONAS NEGATIVE YEAST NEGATIVE History Of Immunizations Name Date Admin [...] cy Group Number Start Date BCBS Bcbs [facility] [id number] Mo nday, 2011 [employer] Financial Assistance [employer] [place] ancial Sheron 50 percent Tuesday, April 21, 2015 [place] Medical Assistance Program [place] Medical Sher[place] nidhi [place] [id number] Tuesday, April 21, 2009 [place] Break And Load Operator Prog - RHC [place] Break And Load Operator Prog - RH C [id number] N/A [facility] Comm [id number] N/A History of Encounters Visit Date Visit Type Provider 10/19/[address] Shannon white MD 10/10/2015 Office visit Michelle Rebolledo DO 09/28/2015 Office visit MICHELLE REBOLLEDO DO 09/14/[address] Shannon white MD 09/04/[address] Shannon white MD [address] Shannon white MD 08/15/2015 Office visit Hali spangler MD 08/11/2015 Voided Neisha lara OTHER WOOD PROCESSING MACHINE OPERATOR 07/24/[address] Shannon white MD 07/18/[address] [facility] [address] Shannon white MD 07/12/[address] Shannon white MD 06/14/[address] Shannon white MD 06/11/2015 Office visit Emily Heredia OTHER WOOD PROCESSING MACHINE OPERATOR 05/29/2015 Office visit Sergey Anguiano MD 05/17/[address] Shannon white MD 04/19/[address] Shannon white MD 04/05/2015 Office visit Irina PINEDA RN 03/30/2015 Office visit Sergey Anguiano MD 03/22/[address] Shannon white MD 01/13/[address] ROSANNA GRIGGS MD 01/04/2015 Office visit Irina PINEDA RN 12/16/2014 Office visit Sergey Anguiano MD 09/29/2014 Procedures Neisha lara OTHER WOOD PROCESSING MACHINE OPERATOR 08/11/2014 Office visit Sergey Anguiano MD 05/26/2014 Office visit Sergey Anguiano MD 04/05/2014 Office visit Sergey Anguiano MD 09/16/2013 Office visit [place] OTHER WOOD PROCESSING MACHINE OPERATOR 08/31/2012 Office visit Sergey Anguiano MD 06/03/2012 Office visit Liane Gamez MD 03/16/2012 Office visit [place] APRN 10/18/2011 Procedures Liane Gamez MD 09/25/2011 Office visit Liane Gamez MD 07/26/2011 Office visit Sergey Anguiano MD 05/27/2011 Office visit Sergey Anguiano MD 11/06/2010 Office visit Sergey Anguiano MD 06/26/2010 Office visit Sergey Anguiano MD 05/28/2010 Office visit Sergey Anguiano MD 09/15/2009 Nurse visit Seregy Anguiano MD 07/18/2009 Office visit Sergey Anguiano MD
--- OUTSIDE RECORDS SUMMARY | 2019-07-07 16:26 | XMS REPORT ---
Author Author Genet Brown Organization [facility] oup Address [address] [place], [place] [address] Care Team Providers Care Change Management Expert Name Role Phone Shannon Brown PCP Unavailable [...] Policy Number Javier Group Number Start Date BCBS Bcbs [facility] [id number] Mo 2011 [place] Medical Assistance Program [place] Medical Sheron tance Prog [id number] Tuesday, 2009 [place] Wholesale Manager Prog - RHC [place] Wholesale Manager Prog - RH C [id number] N/A [facility] Comm [id number] N/A History of Encounters Visit Date Visit Type Provider 05/17/[address] Shannon white MD 04/19/[address] Shannon white MD 04/05/2015 Office visit Irina PINEDA RN 03/30/2015 Office visit Sergey Anguiano MD 03/22/[address] Shannon white MD 01/13/[address] ROSANNA GRIGGS MD 01/04/2015 Office visit Irina PINEDA RN 12/16/2014 Office visit Sergey Anguiano MD 09/29/2014 Procedures Neisha ZuleymaDiana lara BEER RUNNER 08/11/2014 Office visit Sergey Anguiano MD 05/26/2014 Office visit Sergey Anguiano MD 04/05/2014 Office visit Sergey Anguiano MD 09/16/2013 Office visit [place] BEER RUNNER 08/31/2012 Office visit Sergey Anguiano MD 06/03/2012 Office visit Liane Gamez MD 03/16/2012 Office visit [place] BEER RUNNER 10/18/2011 Procedures Liane Gamez MD 09/25/2011 Office visit Liane Gamez MD 07/26/2011 Office visit Sergey Anguiano MD 05/27/2011 Office visit Sergey Anguiano MD 11/06/2010 Office visit Sergey Anguiano MD 06/26/2010 Office visit Sergey Anguiano MD 05/28/2010 Office visit Sergey Anguiano MD 09/15/2009 Nurse visit Sergey Anguiano MD 07/18/2009 Office visit Sergey Anguiano MD
--- OUTSIDE RECORDS SUMMARY | 2019-07-07 16:26 | XMS REPORT ---
Author Author Genet Brown Organization [facility] oup Address [address] [place] [address] Care Team Providers Care Acquisition Editor Name Role Phone Shannon Brown PCP Unavailable [...] needed fluconazole 150 mg oral tablet 07/24/2015 t nanci 1 tablet (150 mg) by oral route once Name Start Date Expiration Date SIG Comments [...] 0.0302 ug/mLAFP Mo M 0.91 hCG Value 83508.0 mIU/mLhCG MoM 1.27 uE3 Value 1.550 ng/mLuE3 MoM 1.63 SHINE Value 190.730 pg/mLDIA MoM 1.15 OSBR [place] 1 [place] [address] DSR (Second Trimester) 1IN 5960 DSR (By [...] Group Number Start Date BCBS Bcbs Of [place] [id number] Mo 2011 [place] Medical Assistance Program [place] Medical Sheron tance Prog [id number] Tuesday, 2009 [place] Monitoring Coordinator Prog - RHC [place] Monitoring Coordinator Prog - RH C [id number] N/A [facility] - [facility] Comm [id number] N/A History of Encounters Visit Date Visit [...] Sergey Anguiano MD 09/29/2014 Procedures Neisha lara CENTREX RADIO OPERATOR 08/11/2014 Office visit Sergey Anguiano MD 05/26/2014 Office visit Sergey Anguiano MD 04/05/2014 Office visit Sergey Anguiano MD 09/16/2013 Office visit [place] CENTREX RADIO OPERATOR 08/31/2012 Office visit Sergey Anguiano MD 06/03/2012 Office visit Liane Gamez MD 03/16/2012 Office visit [place] CENTREX RADIO OPERATOR 10/18/2011 Procedures Liane Gamez MD 09/25/2011 Office visit Liane Gamez MD 07/26/2011 Office visit Sergey Anguiano MD 05/27/2011 Office visit Sergey Anguiano MD 11/06/2010 Office visit Sergey Anguiano MD 06/26/2010 Office visit Sergey Anguiano MD 05/28/2010 Office visit Sergey Anguiano MD 09/15/2009 Nurse visit Sergey Anguiano MD 07/18/2009 Office visit Sergey Anguiano MD
--- OUTSIDE RECORDS SUMMARY | 2019-07-07 16:27 | XMS REPORT ---
Author Author Genet Brown Organization [facility] oup Address [address] [place], [place] [address] Care Team Providers Care Ornament Setter Name Role Phone Shannon Brown PCP Unavailable Allergies and Adverse Reactions Name Reaction Notes NO KNOWN DRUG ALLERGIES Plan of Treatment Planned Activity Comments Planned Date Planned Time Plan/Goal N.GONORRHOEAE DNA AMP PROB 03/22/2015 12:00 AM CHLAMYDIA CULTURE 03/22/2015 12:00 AM HIV-1ANTIBODY 03/22/2015 12:00 AM URINALYSIS AUTO W/SCOPE 03/22/2015 12:00 AM OBSTETRIC PANEL 03/22/2015 12:00 AM TRANSVAGINAL US OBSTETRIC 03/22/2015 12:00 AM URINE TEST 01/02/2015 12:00 AM [...] HC BMI BSA BMI Percentile O2 Sat(%) 03/22/2015 4:17:00 PM 129 mmHg 70 mmHg [...] 03/06/2015 12:00 AM CHORIONIC GONADOTROPIN ASSAY Returned 09/25/2011 12:00 AM CHLAMYDIA CULTURE Returned [...] 10:25 AM BETA HCG QUANT 1849.0 mIU/mL History Of Immunizations Name Date Admin Mfg [...] test confirmed positive Mar 22 2015 4:22PM Payers Insurance Name Company Name Plan Name Plan Number Policy Number Javier cy Group Number Start Date Bcbs Bcbs Of [place] [id number] Mo 2011 [place] Medical Assistance Program [place] Medical Sheron tance Prog [id number] Tuesday, 2009 [place] Sign Carpenter Prog - RHC [place] Sign Carpenter Prog - RH C [id number] N/A [facility] - C - Community Plan [facility] RHC Comm [id number] N/A History of Encounters Visit Date Visit Type Provider 03/22/[address] Shannon white MD 01/13/[address] ROSANNA GRIGGS MD 01/04/2015 Office visit Irina PINEDA RN 12/16/2014 Office visit Sergey Anguiano MD 09/29/2014 Procedures Neisha lara STAVE LOG RIPSAW OPERATOR 08/11/2014 Office visit Sergey Anguiano MD 05/26/2014 Office visit Sergey Anguiaon MD 04/05/2014 Office visit Sergey Anguiano MD 09/16/2013 Office visit [place] STAVE LOG RIPSAW OPERATOR 08/31/2012 Office visit Sergey Anguiano MD 06/03/2012 Office visit Liane Gamez MD 03/16/2012 Office visit [place] STAVE LOG RIPSAW OPERATOR 10/18/2011 Procedures Liane Gamez MD 09/25/2011 Office visit Liane Gamez MD 07/26/2011 Office visit Sergey Anguiano MD 05/27/2011 Office visit Sergey Anguiano MD 11/06/2010 Office visit Sergey Anguiano MD 06/26/2010 Office visit Sergey Anguiano MD 05/28/2010 Office visit Sergey Anguiano MD 09/15/2009 Nurse visit Sergey Anguiano MD 07/18/2009 Office visit Sergey Anguiano MD
--- OUTSIDE RECORDS SUMMARY | 2019-07-07 16:27 | XMS REPORT ---
Author Author Genet Khoury Organization [facility] ou Address [address] [place], [place] [id number] Care Team Providers Care Critical Care Unit Nurse Name Role Phone Neisha Khoury PCP Unavailable Allergies and Adverse Reactions Name [...] 0.0302 ug/mLAFP Mo M 0.91 hCG Value 72359.0 mIU/mLhCG MoM 1.27 uE3 Value 1.550 ng/mLuE3 MoM 1.63 GITA Value 190.730 pg/mLDIA MoM 1.15 OSBR Risk 1 [place] [address] DSR (Second Trimester) 1IN 5960 DSR (By [...] Group Number Start Date BCBS Bcbs Of [place] [id number] Mo , 2011 [place] Medical Assistance Program [place] Medical Sher[place] tance Prog [id number] Tuesday, 2009 [place] Boom Cat Operator Prog - RHC [place] Boom Cat Operator Prog - RH C [id number] N/A [facility] - Community Plan [facility] [id number] N/A History of Encounters Visit Date Visit Type Provider 08/11/2015 Voided Neisha lara CABLE ENGINEER 07/24/[address] Shannon white MD 07/18/[address] [facility] [address] Shannon white MD 07/12/[address] Shannon white MD 06/14/[address] Shannon white MD 06/11/2015 Office visit Emily Heredia CABLE ENGINEER 05/29/2015 Office visit Sergey Anguiano MD 05/17/[address] Shannon white MD 04/19/[address] Shannon white MD 04/05/2015 Office visit Irina PINEDA RN 03/30/2015 Office visit Sergey Anguiano MD 03/22/[address] Shannon white MD 01/13/[address] ROSANNA GRIGGS MD 01/04/2015 Office visit Irina PINEDA RN 12/16/2014 Office visit Sergey Anguiano MD 09/29/2014 Procedures Neisha lara CABLE ENGINEER 08/11/2014 Office visit Sergey Anguiano MD 05/26/2014 Office visit Sergey Anguiano MD 04/05/2014 Office visit Sergey Anguiano MD 09/16/2013 Office visit [place] CABLE ENGINEER 08/31/2012 Office visit Sergey Anguiano MD 06/03/2012 Office visit Liane Gamez MD 03/16/2012 Office visit [place] CABLE ENGINEER 10/18/2011 Procedures Liane Gamez MD 09/25/2011 Office visit Liane Gamez MD 07/26/2011 Office visit Sergey Anguiano MD 05/27/2011 Office visit Sergey Anguiano MD 11/06/2010 Office visit Sergey Anguiano MD 06/26/2010 Office visit Sergey Anguiano MD 05/28/2010 Office visit Sergey Anguiano MD 09/15/2009 Nurse visit Sergey Anguiano MD 07/18/2009 Office visit Sergey Anguiano MD
--- OUTSIDE RECORDS SUMMARY | 2019-07-07 16:27 | XMS REPORT ---
Author Author Genet Brown Organization [facility] ou Address [address] [place], [place] [address] Care Team Providers Care Parish Worker Name Role Phone Shannon Brown PCP Sergey [...] Left Deltoid 07/18/2009 05/23/2006 999 Tdap 09/14/2015 [employer] SKB BOOSTRIX [id number] Intramuscular Right Deltoid 09/14/2015 [...] in second trimester Apr 08 2017 2:28PM Payers Insurance Name Company Name Plan Name Plan Number Policy Number Javier cy Group Number Start Date BCBS Bcbs Of [place] [id number] Mo 2011 [employer] - RHC - [place] State Plan [employer] - C [place] State Plan [id number] N/A [place] Medical Assistance Program [place] Medical Sher[place] tance Prog [id number] Tuesday, 2009 [place] Skate Maker Prog - RHC [place] Skate Maker Prog - RH C [id number] N/A [facility] - C - Community Plan [facility] RHC Comm [id number] N/A [facility] Financial Assistance [facility] Fin ancial Sheron 50 percent Tuesday, April 21, 2015 [employer] [place] State Plan [facility] [id number] N/A History of Encounters Visit Date Visit Type Provider 04/08/[address] Shannon white MD 03/11/[address] Shannon white MD 02/24/[address] Shannon white MD 01/27/[address] Shannon white MD 01/06/2017 Office visit Neisha lara NUCLEAR UNIT OPERATOR 02/28/2016 Office visit Neisha lara NUCLEAR UNIT OPERATOR 01/29/2016 [facility] Kassandra Marin MD 12/12/[address] Shannon white MD 11/01/[address] [facility] [address] Shannon white MD 10/26/2015 Office visit Michelle Sanchez DO 10/19/[address] Shannon white MD 10/10/2015 Office visit Michelle Sanchez DO 09/28/2015 Office visit MICHELLE SANCHEZ DO 09/14/[address] Shannon white MD 09/04/[address] [facility] [address] Shannon white MD [address] Shannon white MD 08/15/2015 Office visit Hali spangler MD 08/11/2015 Voided Neisha lara NUCLEAR UNIT OPERATOR 07/24/[address] Shannon white MD 07/18/[address] [facility] [address] Shannon white MD 07/17/[address] [facility] [address] Shannon white MD 07/12/[address] Shannon white MD 06/14/[address] Shannon white MD 06/11/2015 Office visit Emily Heredia NUCLEAR UNIT OPERATOR 05/29/2015 Office visit Sergey Anguiano MD 05/17/[address] Shannon white MD 04/19/[address] Shannon white MD 04/05/2015 Office visit Irina PINEDA RN 03/30/2015 Office visit Sergey Anguiano MD 03/22/[address] Shannon white MD 01/13/[address] ORSANNA GRIGGS MD 01/04/2015 Office visit Irina PINEDA RN 12/16/2014 Office visit Sergey Anguiano MD 09/29/2014 Procedures Neisha lara NUCLEAR UNIT OPERATOR 08/11/2014 Office visit Sergey Anguiano MD 05/26/2014 Office visit Sergey Anguiano MD 04/05/2014 Office visit Sergey Anguiano MD 09/16/2013 Office visit [place] NUCLEAR UNIT OPERATOR 08/31/2012 Office visit Sergey Anguiano MD 06/03/2012 Office visit Liane Gamez MD 03/16/2012 Office visit [place] NUCLEAR UNIT OPERATOR 10/18/2011 Procedures Liane Gamez MD 09/25/2011 Office visit Liane Gamez MD 07/26/2011 Office visit Sergey Anguiano MD 05/27/2011 Office visit Sergey Anguiano MD 11/06/2010 Office visit Sergey Anguiano MD 06/26/2010 Office visit Sergey Anguiano MD 05/28/2010 Office visit Sergey Anguiano MD 09/15/2009 Nurse visit Sergey Anguiano MD 07/18/2009 Office visit Sergey Anguiano MD
--- OUTSIDE RECORDS SUMMARY | 2019-07-07 16:27 | XMS REPORT ---
Author Author Genet Brown Organization [facility] ou Address [address] [place] [id number] Care Team Providers Care Furs Salesperson Name Role Phone Shannon Brown PCP Unavailable Allergies and Adverse Reactions Name Reaction Notes NO KNOWN DRUG ALLERGIES Plan of Treatment Planned Activity Comments Planned Date Planned Time Plan/Goal URINALYSIS AUTO W/O SCOPE 04/05/2015 12:00 AM URINE TEST 01/02/2015 12:00 AM Medications Active Name Start Date Estimated Completion Date SIG Co mments Zoloft oral Take one tablet daily Name Start Date Expiration Date SIG [...] oral route every 4 hours as needed Problem List Description Status Onset ADHD Active Bipolar Disorder Active Vital Signs Date Time BP-Sys(mm[Hg] BP-Shine(mm[Hg]) HR(bpm) RR(rpm) Temp WT HT HC BMI BSA BMI Percentile O2 Sat(%) 12/12/2015 11:43:00 AM 105 mmHg 72 mmHg [...] 0.0302 ug/mLAFP Mo M 0.91 hCG Value 90206.0 mIU/mLhCG MoM 1.27 uE3 Value 1.550 ng/mLuE3 MoM 1.63 SHINE Value 190.730 pg/mLDIA MoM 1.15 OSBR [place] 1 [place] [address] DSR (Second Trimester) 1IN 5960 DSR (By [...] NEGATIVE 10/22/2015 10:58 PM AMNISURE ROM NEGATIVE 10/29/2015 7:10 PM AMNISURE ROM NEGATIVE History Of Immunizations Name Date Admin [facility] Code Trade Name Lot# Route Inj Vis Given Vis Pub CVX HPV 07/18/2009 [employer] MSD GARDASIL [id number] Intramuscul ar Left Deltoid 07/18/2009 05/23/2006 999 Tdap 09/14/2015 [employer] SKB BOOSTRIX [id number] Intramuscular Right Deltoid 09/14/2015 [...] 3:17PM Post- Follow-Up Dec 12 2015 11:50AM Payers Insurance Name Company Name Plan Name Plan Number Policy Number Javier cy Group Number Start Date BCBS Bcbs Of [place] [id number] Mo 2011 [employer] State Plan Amerigroup [place] State Plan [id number] N/A [place] Medical Assistance Program [place] Medical Sheron tance Prog [id number] Tuesday, 2009 [place] Chin Strap Cutter Prog - RHC [place] Chin Strap Cutter Prog - RH C [id number] N/A [facility] - C - Community Plan [facility] RHC Comm [id number] N/A [employer] [place] Financial Assistance Power [employer] [place] Fin ancial Sheron 50 percent Tuesday, April 21, 2015 History of Encounters Visit Date Visit Type Provider 12/12/[address] Shannon white MD 11/01/[address] [facility] [address] Shannon white MD 10/26/2015 Office visit Michelle Sanchez DO 10/19/[address] Shannon white MD 10/10/2015 Office visit Michelle Sanchez DO 09/28/2015 Office visit MICHELLE SANCHEZ DO 09/14/[address] Shannon white MD 09/04/[address] [facility] [address] Shannon white MD [address] Shannon white MD 08/15/2015 Office visit Hali spangler MD 08/11/2015 Voided Neisha lara GENERAL LEDGER BOOKKEEPER 07/24/[address] Shannon white MD 07/18/[address] Shannon white MD 07/17/[address] Shannon white MD 07/12/2015 Office [...] visit Sergey Anguiano MD 09/29/2014 Procedures Neisha lraa GENERAL LEDGER BOOKKEEPER 08/11/2014 Office visit Sergey Anguiano MD 05/26/2014 Office visit Sergey Anguiano MD 04/05/2014 Office visit Sergey Anguiano MD 09/16/2013 Office visit [place] GENERAL LEDGER BOOKKEEPER 08/31/2012 Office visit Sergey Anguiano MD 06/03/2012 Office visit Liane Gaemz MD 03/16/2012 Office visit [place] GENERAL LEDGER BOOKKEEPER 10/18/2011 Procedures Liane Gamez MD 09/25/2011 Office visit Liaen Gamez MD 07/26/2011 Office visit Sergey Anguiano MD 05/27/2011 Office visit Sergey Anguiano MD 11/06/2010 Office visit Sergey Anguiano MD 06/26/2010 Office visit Sergey Anguiano MD 05/28/2010 Office visit Sergey Anguiano MD 09/15/2009 Nurse visit Sergey Anguiano MD 07/18/2009 Office visit Sergey Anguiano MD
--- OUTSIDE RECORDS SUMMARY | 2019-07-07 16:28 | XMS REPORT ---
Author Author Genet Harper Organization [facility] ou Address [address] [place], [place] [address] Care Team Providers Care Splicer Operator Name Role Phone Lazarus Harper PCP Sergey Anguiano PreferredProvider Allergies and Adverse Reactions Name Reaction Notes NO KNOWN DRUG ALLERGIES Plan of Treatment Planned Activity Comments Planned Date Planned Time Plan/Goal AFP ser maternal 04/08/2017 12:00 AM test, urine 01/02/2015 12:00 AM [...] 12:00 AM VFC Gardasil (HPV Vaccine) Reviewed 04/22/2017 12:00 AM OB US >/= 14 WKS SNGL FETUS Returned 04/08/2017 12:00 AM IM ADM PRQ ID SUBQ/IM NJXS 1 VACCINE Rev iewed 04/08/2017 12:00 AM INFLUENZA VAC 4 VALENT PRSRV FREE 3 YRS PLUS IM Returned 09/15/2009 12:00 AM IMMUNIZATION ADMIN Reviewed 09/15/2009 [...] Left Deltoid 07/18/2009 05/23/2006 999 Tdap 09/14/2015 [employer] SKB BOOSTRIX [id number] Intramuscular Right Deltoid 09/14/2015 06/14/2014 115 Influenza 04/08/2017 [employer] SKB Fluarix [id number] Intramuscul ar Right Deltoid [...] Start Date BCBS Bcbs Of [place] [id number] Mo 2011 [facility] [place] State Plan [facility] State [facility] [id number] N/A [place] Medical Assistance Program [place] Medical Sheron tance Prog [id number] Tuesday, 2009 [place] Ultimate Hoops Trainer Prog - RHC [place] Ultimate Hoops Trainer Prog - RH C [id number] N/A [facility] - [facility] - [facility] RHC Comm [id number] N/A [facility] Financial Assistance [facility] Fin ancial Sheron 50 percent Tuesday, April 21, 2015 [employer] [place] State Plan [facility] State Plan [id number] N/A History of Encounters Visit Date Visit Type Provider 04/29/2017 Office visit Lazarus Mcleod 04/08/[address] Shannon mcleod MD 03/11/[address] Shannon mcleod MD 02/24/[address] Shannon mcleod MD 01/27/[address] Shannon mcleod MD 01/06/2017 Office visit Neisha lara TECHNICAL INSTRUCTOR COURSE DEVELOPER 02/28/2016 Office visit Neisha lara TECHNICAL INSTRUCTOR COURSE DEVELOPER 01/29/2016 Hospital Kassandra Marin MD 12/12/[address] Shannon mcleod MD 11/01/[address] Shannon mcleod MD 10/26/2015 Office visit Michelle Sanchez DO 10/19/[address] Shannon mcleod MD 10/10/2015 Office visit Michelle Sanchez DO 09/28/2015 Office visit MICHELLE SANCHEZ DO 09/14/[address] Shannon mcleod MD 09/04/[address] [facility] [address] Shannon mcleod MD [address] Shannon mcleod MD 08/15/2015 Office visit Hali spangler MD 08/11/2015 Voided Neisha lara TECHNICAL INSTRUCTOR COURSE DEVELOPER 07/24/[address] Shannon mcleod MD 07/18/[address] [facility] [address] Shannon mcleod MD 07/17/[address] [facility] [address] Shannon mcleod MD 07/12/[address] Shannon mcleod MD 06/14/[address] Shannon mcleod MD 06/11/2015 Office visit Emily Heredia TECHNICAL INSTRUCTOR COURSE DEVELOPER 05/29/2015 Office visit Sergey Anguiano MD 05/17/[address] Shannon mcleod MD 04/19/[address] Shannon mcleod MD 04/05/2015 Office visit Irina PINEDA RN 03/30/2015 Office visit Sergey Anguiano MD 03/22/[address] Shannon mcleod MD 01/13/[address] ROSANNA GRIGGS MD 01/04/2015 Office visit Irina PINEDA RN 12/16/2014 Office visit Sergey Anguiano MD 09/29/2014 Procedures Neisha Cadet jane TECHNICAL INSTRUCTOR COURSE DEVELOPER 08/11/2014 Office visit Sergey Anguiano MD 05/26/2014 Office visit Sergey Anguiano MD 04/05/2014 Office visit Sergey Anguiano MD 09/16/2013 Office visit [place] TECHNICAL INSTRUCTOR COURSE DEVELOPER 08/31/2012 Office visit Sergey Anguiano MD 06/03/2012 Office visit Liane Gamez MD 03/16/2012 Office visit [place] TECHNICAL INSTRUCTOR COURSE DEVELOPER 10/18/2011 Procedures Liane Gamez MD 09/25/2011 Office visit Liane Gamez MD 07/26/2011 Office visit Sergey Anguiano MD 05/27/2011 Office visit Sergey Anguiano MD 11/06/2010 Office visit Sergey Anguiano MD 06/26/2010 Office visit Sergey Anguiano MD 05/28/2010 Office visit Sergey Anguiano MD 09/15/2009 Nurse visit Sergey Anguiano MD 07/18/2009 Office visit Sergey Anguiano MD
--- OUTSIDE RECORDS SUMMARY | 2019-07-07 16:28 | XMS REPORT ---
Author Author Genet Anguiano Organization [facility] oup Address [address] [place], [place] [address] Care Team Providers Care Postal Service Mail Processor Name Role Phone Sergey Anguiano PCP Unavailable [...] Group Number Start Date BCBS Bcbs Of [place] [id number] Mo 2011 [place] Medical Assistance Program [place] Medical Sheron tance Prog [id number] Tuesday, 2009 [place] School Cafeteria Head Cook Prog - RHC [place] [employer] Cafeteria Head Cook Prog - RH C [id number] N/A [facility] - C - [facility] Plan [facility] RHC Comm [id number] N/A History of Encounters Visit Date Visit [...] Sergey Anguiano MD 09/29/2014 Procedures Neisha lara CHIEF EXECUTIVE OR MANAGING DIRECTOR 08/11/2014 Office visit Sergey Anguiano MD 05/26/2014 [...]
--- OUTSIDE RECORDS SUMMARY | 2019-07-07 16:28 | XMS REPORT ---
Author Author Genet Brown Organization [facility] Address [address] [place], [place] [address] Care Team Providers Care Mushroom Grower Name Role Phone Shannon Brown PCP Unavailable [...] Number Javier Group Number Start Date BCBS Bc Of [place] [id number] Mo 2011 [place] Medical Assistance Program [place] Medical Sheron tance Prog [id number] Tuesday, 2009 [place] Roofing Machine Tender Prog - RHC [place] Roofing Machine Tender Prog - RH C [id number] N/A [facility] - Community Plan [facility] Comm [id number] N/A History of Encounters Visit Date Visit Type Provider 04/19/[address] Shannon white MD 04/05/2015 Office visit Irina PINEDA RN 03/30/2015 Office visit Sergey Anguiano MD 03/22/[address] Shannon white MD 01/13/[address] ROSANNA GRIGGS MD 01/04/2015 Office visit Irina PINEDA RN 12/16/2014 Office visit Sergey Anguiano MD 09/29/2014 Procedures Neisha AmorDiana lara GRAIN MILLER HELPER 08/11/2014 Office visit Sergey Anguiano MD 05/26/2014 Office visit Sergey Anguiano MD 04/05/2014 Office visit Sergey Anguiano MD 09/16/2013 Office visit [place] GRAIN MILLER HELPER 08/31/2012 Office visit Sergey Anguiano MD 06/03/2012 Office visit Liane Gamez MD 03/16/2012 Office visit [place] GRAIN MILLER HELPER 10/18/2011 Procedures Liane Gamez MD 09/25/2011 Office visit Liane Gamez MD 07/26/2011 Office visit Sergey Anguiano MD 05/27/2011 Office visit Sergey Anguiano MD 11/06/2010 Office visit Sergey Anguiano MD 06/26/2010 Office visit Sergey Anguiano MD 05/28/2010 Office visit Sergey Anguiano MD 09/15/2009 Nurse visit Sergey Anguiano MD 07/18/2009 Office visit Sergey Anguiano MD
--- OUTSIDE RECORDS SUMMARY | 2019-07-07 16:29 | XMS REPORT ---
Author Author Genet Brown Organization [facility] ou Address [address] [place] [address] Care Team Providers Care Environmental Law Professor Name Role Phone Shannon Brown PCP Unavailable Allergies and Adverse Reactions Name Reaction Notes NO KNOWN DRUG ALLERGIES Plan of Treatment Planned Activity Comments Planned Date Planned Time Plan/Goal URINALYSIS AUTO W/O SCOPE 04/05/2015 12:00 AM URINE CULTURE/COLONY COUNT 09/14/2015 12:00 AM URINE TEST 01/02/2015 12:00 AM Medications Active Name Start Date Estimated Completion Date SIG Co mments Vitamin oral tablet take 1 table t by oral route once daily ferrous sulfate 325 mg (65 mg iron) oral tablet 08/22/2015 12/20/2015 take 1 tablet by oral route 2 times a day for 30 days Name Start Date Expiration [...] 12:00 AM GLUCOSE TOLERANCE TEST (GTT) Returned 09/25/2011 12:00 AM CHLAMYDIA CULTURE Returned [...] 0.0302 ug/mLAFP Mo M 0.91 hCG Value 70786.0 mIU/mLhCG MoM 1.27 uE3 Value 1.550 ng/mLuE3 MoM 1.63 SHINE Value 190.730 pg/mLDIA MoM 1.15 OSBR [place] 1 [place] [address] DSR (Second Trimester) 1IN 5960 DSR (By [...] History of pyelonephritis Sep 14 2015 2:54PM Payers Insurance Name Company Name Plan Name Plan Number Policy Number Javier cy Group Number Start Date BCBS Bcbs Of [place] [id number] Mo , 2011 [place] Medical Assistance Program [place] Medical Sheron tance Prog [id number] Tuesday, 2009 [place] Director Sterile Processing Prog - RHC [place] Director Sterile Processing Prog - RH C [id number] N/A [facility] - Community Plan [facility] Comm [id number] N/A History of Encounters Visit Date Visit Type Provider 09/14/[address] Shannon white MD [address] Shannon white MD 08/15/2015 Office visit Hali spangler MD 08/11/2015 Voided Neisha lara CARBURETOR EXPERT 07/24/[address] Shannon white MD 07/18/[address] Shannon white MD 07/12/[address] Shannon white MD 06/14/[address] Shannon white MD 06/11/2015 Office visit Emily Heredia CARBURETOR EXPERT 05/29/2015 Office visit Sergey Anguiano MD 05/17/[address] Shannon white MD 04/19/[address] Shannon white MD 04/05/2015 Office visit Irina PINEDA RN 03/30/2015 Office visit Sergey Anguiano MD 03/22/[address] Shannon white MD 01/13/[address] ROSANNA GRIGGS MD 01/04/2015 Office visit Irina PINEDA RN 12/16/2014 Office visit Sergey Anguiano MD 09/29/2014 Procedures Neisha lara CARBURETOR EXPERT 08/11/2014 Office visit Sergey Anguiano MD 05/26/2014 Office visit Sergey Anguiano MD 04/05/2014 Office visit Sergey Anguiano MD 09/16/2013 Office visit [place] CARBURETOR EXPERT 08/31/2012 Office visit Sergey Anguiano MD 06/03/2012 Office visit Liane Gamez MD 03/16/2012 Office visit [place] CARBURETOR EXPERT 10/18/2011 Procedures Liane Gamez MD 09/25/2011 Office visit Liane Gamez MD 07/26/2011 Office visit Sergey Anguiano MD 05/27/2011 Office visit Sergey Anguiano MD 11/06/2010 Office visit Sergey Anguiano MD 06/26/2010 Office visit Sergey Anguiano MD 05/28/2010 Office visit Sergey Anguiano MD 09/15/2009 Nurse visit Sergey Anguiano MD 07/18/2009 Office visit Sergey Anguiano MD
--- OUTSIDE RECORDS SUMMARY | 2019-07-07 16:29 | XMS REPORT ---
Author Author Genet Brown Organization [facility] oup Address [address] [place], [place] [address] Care Team Providers Care Director Stars Name Role Phone Shannon Brown PCP Unavailable Allergies and Adverse Reactions Name Reaction Notes NO KNOWN DRUG ALLERGIES Plan of Treatment Planned Activity Comments Planned Date Planned Time Plan/Goal URINALYSIS AUTO W/O SCOPE 04/05/2015 12:00 AM ALPHA-FETOPROTEIN SERUM 05/29/2015 12:00 AM URINE TEST 01/02/2015 12:00 [...] day Vistaril 25 mg oral capsule 05/17/2015 take 1 capsule (25 mg) by oral route 3 times per day permethrin 5 % topical cream 05/25/2015 chance ly (thoroughly massage into skin from head to soles of feet) by topical route once leave on for 8-14 hr, then remove by thorough washing Name Start Date Expiration Date SIG Comments [...] , First Normal May 29 2015 2:57PM Payers Insurance Name Company Name Plan Name Plan Number Policy Number Javier cy Group Number Start Date BCBS Bcbs Of [place] [id number] Mo ndNovember 18, 2011 [place] Medical Assistance Program [place] Medical Sheron tance Prog [id number] Tuesday, 2009 [place] Technical Support Assistant Prog - RHC [facility] RH C [id number] N/A [facility] - RHC - Community Plan [facility] ealthCare RHC Comm [id number] N/A History of Encounters Visit Date Visit [...] Sergey Anguiano MD 09/29/2014 Procedures Neisha lara AIRFIELD ENGINEER OFFICER 08/11/2014 Office visit Sergey Anguiano MD 05/26/2014 Office visit Sergey Anguiano MD 04/05/2014 Office visit Sergey Anguiano MD 09/16/2013 Office visit [place] AIRFIELD ENGINEER OFFICER 08/31/2012 Office visit Sergey Anguiano MD 06/03/2012 Office visit Liane Gamez MD 03/16/2012 Office visit [place] AIRFIELD ENGINEER OFFICER 10/18/2011 Procedures Liane Gamez MD 09/25/2011 Office visit Liane Gamez MD 07/26/2011 Office visit Sergey Anguiano MD 05/27/2011 Office visit Sergey Anguiano MD 11/06/2010 Office visit Sergey Anguiano MD 06/26/2010 Office visit Sergey Anguiano MD 05/28/2010 Office visit Sergey Anguiano MD 09/15/2009 Nurse visit Sergey Anguiano MD 07/18/2009 Office visit Sergey Anguiano MD
--- OUTSIDE RECORDS SUMMARY | 2019-07-07 16:29 | XMS REPORT ---
Author Author Genet Harper Organization [facility] Address [address] [place], [place] [id number] Care Team Providers Care Inspector Welded Parts Name Role Phone Lazarus Harper PCP Sergey [...] Left Deltoid 07/18/2009 05/23/2006 999 Tdap 09/14/2015 [employer] BOOSTRIX [id number] Intramuscular Right Deltoid 09/14/2015 06/14/2014 115 Influenza 04/08/2017 [employer] Fluarix [id number] Intramuscul ar Right Deltoid [...] Number Start Date BCBS Bcbs Of [place] [id number] Mo 2011 [facility] - [facility] - [place] State Plan [facility]m cancer center - [facility] State [facility] [id number] N/A [place] Medical Assistance Program [place] Medical Sher[place] t[place] Prog [id number] Tuesday, 2009 [place] Automatic Corn Grinder Operator Prog - RHC [place] Automatic Corn Grinder Operator Prog - RH C [id number] N/A [facility] - [facility] - [facility] RHC Comm [id number] N/A [facility] Financial Assistance [facility] Fin ancial Sheron 50 percent Tuesday, April 21, 2015 [employer] [place] State Plan [facility] State Plan [id number] N/A History of Encounters Visit Date Visit Type Provider 04/29/2017 Office visit Lazarus Mcleod 04/08/[address] Shannon mcleod MD 03/11/[address] Shannon mcleod MD 02/24/[address] Shannon mcleod MD 01/27/[address] Shannon mcleod MD 01/06/2017 Office visit Neisha lara SURGEON CHIEF 02/28/2016 Office visit Neisha lara SURGEON CHIEF 01/29/2016 Hospital Kassandra Marin MD 12/12/[address] Shannon mcleod MD 11/01/[address] Shannon mcleod MD 10/26/2015 Office visit Michelle Sanchez DO 10/19/[address] Shannon mcleod MD 10/10/2015 Office visit Michelle Sanchez DO 09/28/2015 Office visit MICHELLE SANCHEZ DO 09/14/[address] Shannon mcleod MD 09/04/[address] [facility] [address] Shannon mcleod MD [address] Shannon mcleod MD 08/15/2015 Office visit Hali spangler MD 08/11/2015 Voided Neisha lara SURGEON CHIEF 07/24/[address] Shannon mcleod MD 07/18/[address] [facility] [address] Shannon mcleod MD 07/17/[address] [facility] [address] Shannon mcleod MD 07/12/[address] Shannon mcleod MD 06/14/[address] Shannon mcleod MD 06/11/2015 Office visit Emily Heredia SURGEON CHIEF 05/29/2015 Office visit Sergey Anguiano MD 05/17/[address] Shannon mcleod MD 04/19/[address] Shannon mcleod MD 04/05/2015 Office visit Irina PINEDA RN 03/30/2015 Office visit Sergey Anguiano MD 03/22/[address] Shannon mcleod MD 01/13/[address] ROSANNA GRIGGS MD 01/04/2015 Office visit Irina PINEDA RN 12/16/2014 Office visit Sergey Anguiano MD 09/29/2014 Procedures Neisha Cadet jane SURGEON CHIEF 08/11/2014 Office visit Sergey Anguiano MD 05/26/2014 Office visit Sergey Anguiano MD 04/05/2014 Office visit Sergey Anguiano MD 09/16/2013 Office visit [place] SURGEON CHIEF 08/31/2012 Office visit Sergey Anguiano MD 06/03/2012 Office visit Liane Gamez MD 03/16/2012 Office visit [place] SURGEON CHIEF 10/18/2011 Procedures Liane Gamez MD 09/25/2011 Office visit Liane Gamez MD 07/26/2011 Office visit Sergey Anguiano MD 05/27/2011 Office visit Sergey Anguiano MD 11/06/2010 Office visit Sergey Anguiano MD 06/26/2010 Office visit Sergey Anguiano MD 05/28/2010 Office visit Sergey Anguiano MD 09/15/2009 Nurse visit Sergey Anguiano MD 07/18/2009 Office visit Sergey Anguiano MD
--- OUTSIDE RECORDS SUMMARY | 2019-07-07 16:30 | XMS REPORT ---
Author Author Genet Brown Organization [facility] Address [address] [place], [place] [address] Care Team Providers Care Record Librarian Name Role Phone Shannon Brown PCP Unavailable [...] 2015 9:41AM Amenorrhea Mar 06 2015 9:06AM Payers Insurance Name Company Name Plan Name Plan Number Policy Number Javier cy Group Number Start Date Bcbs Bcbs Of [place] [id number] Mo nday, 2011 [place] Medical Assistance Program [place] Medical Sher[place] tance Prog [id number] Tuesday, 2009 [place] Telecommunications Facility Examiner Prog - RHC [place] Telecommunications Facility Examiner Prog - RH C [id number] N/A [facility] - [facility] - [facility] ealthCare RHC Comm [id number] N/A History of Encounters Visit Date Visit Type Provider 03/22/[address] Shannon white MD 01/13/[address] ROSANNA GRIGGS MD 01/04/2015 Office visit Irina PINEDA RN 12/16/2014 Office visit Sergey Anguiano MD 09/29/2014 Procedures Neisha lara SQUARE SHEAR OPERATOR 08/11/2014 Office visit Sergey Anguiano MD 05/26/2014 Office visit Sergey Anguiano MD 04/05/2014 Office visit Sergey Anguiano MD 09/16/2013 Office visit [place] SQUARE SHEAR OPERATOR 08/31/2012 Office visit Sergey Anguiano MD 06/03/2012 Office visit Liane Gamez MD 03/16/2012 Office visit [place] SQUARE SHEAR OPERATOR 10/18/2011 Procedures Liane Gamez MD 09/25/2011 Office visit Liane Gamez MD 07/26/2011 Office visit Sergey Anguiano MD 05/27/2011 Office visit Sergey Anguiano MD 11/06/2010 Office visit Sergey Anguiano MD 06/26/2010 Office visit Sergey Anguiano MD 05/28/2010 Office visit Sergey Anguiano MD 09/15/2009 Nurse visit Sergey Anguiano MD 07/18/2009 Office visit Sergey Anguiano MD
--- OUTSIDE RECORDS SUMMARY | 2019-07-07 16:30 | XMS REPORT ---
Author Author Genet Brown Organization [facility] Address [address] [place], [place] [address] Care Team Providers Care Dehydrogenation Converter Operator Name Role Phone Shannon Brown PCP Unavailable [...] 0.0302 ug/mLAFP Mo M 0.91 hCG Value 40859.0 mIU/mLhCG MoM 1.27 uE3 Value 1.550 ng/mLuE3 MoM 1.63 GITA Value 190.730 pg/mLDIA MoM 1.15 OSBR Risk 1 [place] [address] DSR (Second Trimester) 1IN 5960 DSR (By [...] negative WBC Est Ur Ql Strip small History Of Immunizations Name Date Admin Mfg [...] Group Number Start Date BCBS Bcbs Of [place] [id number] Mo , 2011 [place] Medical Assistance Program [place] Medical Sher[place] tance Prog [id number] Tuesday, 2009 [place] Retort Press Operator Prog - RHC [place] Retort Press Operator Prog - RH C [id number] N/A [facility] - Community Plan [facility] Comm [id number] N/A History of Encounters Visit Date Visit Type Provider 07/12/[address] Shannon white MD [...] Sergey Anguiano MD 09/29/2014 Procedures Neisha lara APRN 08/11/2014 Office visit Sergey Anguiano MD 05/26/2014 [...]
--- OUTSIDE RECORDS SUMMARY | 2019-07-07 16:30 | XMS REPORT ---
Author Author Genet Harper Organization [facility] Address [address] [place], [place] [phone] Care Team Providers Care House Furnishings Supervisor Name Role Phone Lazarus Harper PCP Sergey Anguiano PreferredProvider Allergies and Adverse Reactions Name Reaction Notes NO KNOWN DRUG ALLERGIES Plan of Treatment Planned Activity Comments Planned Date Planned Time Plan/Goal test, urine 01/02/2015 12:00 AM Medications Active Name Start Date Estimated Completion Date SIG Co mments Vitamin oral Zofran (as hydrochloride) 8 mg oral tablet 05/07/2017 take 1 tablet by oral route every [...] US >/= 14 WKS SNGL FETUS Reviewed 04/08/2017 12:00 AM IM ADM PRQ ID SUBQ/IM NJXS 1 VACCINE Rev iewed 04/08/2017 12:00 AM INFLUENZA VAC 4 VALENT PRSRV FREE 3 YRS PLUS IM Reviewed 06/10/2017 12:00 AM GLUCOSE TOLERANCE TEST (GTT) Returned 06/10/2017 12:00 AM COMPLETE CBC W/AUTO DIFF WBC Returned 06/10/2017 12:00 AM RH IG FULL-DOSE IM Returned 06/10/2017 12:00 AM Type and screen Returned 09/15/2009 12:00 AM IMMUNIZATION ADMIN Reviewed [...] Right Deltoid 09/14/2015 06/14/2014 115 Influenza 04/08/2017 [employer] Fluarix [id number] Intramuscul ar Right Deltoid [...] 2:28PM Flu Vaccine Apr 08 2017 2:45PM Normal in multigravida in second trimester Jun 10 2017 2:34PM Payers Insurance Name Company Name Plan Name Plan Number Policy Number Javier cy Group Number Start Date BCBS Bcbs [facility] [id number] Mo 2011 Amerigroup - RHC - [place] State Plan Amerigroup - [facility] State [facility] [id number] N/A [place] Medical Assistance Program [place] Medical Sher[place] tance Prog [id number] Tuesday, 2009 [place] Engineer Fishing Vessel Prog - RHC [place] Engineer Fishing Vessel Prog - RH C [id number] N/A [facility] RHC Comm [id number] N/A [facility] Financial Assistance [facility] Fin ancial Sheron 50 percent Tuesday, April 21, 2015 [employer] [place] State Plan [facility] State Plan [id number] N/A History of Encounters Visit Date Visit Type Provider 06/10/2017 Office visit Lazarus Mcleod 04/29/2017 Office visit Lazarus Mcleod 04/08/[address] Shannon mcleod MD 03/11/[address] Shannon mcleod MD 02/24/[address] Shannon mcleod MD 01/27/[address] Shannon mcleod MD 01/06/2017 Office visit Neisha AmorDiana Cadet n SPECIAL DAY CLASS TEACHER 02/28/2016 Office visit Neisha MDiana lara SPECIAL DAY CLASS TEACHER 01/29/2016 Hospital Kassandra Marin MD 12/12/[address] Shannon mcleod MD 11/01/[address] [facility] [address] Shannon mcleod MD 10/26/2015 Office visit Michelle Sanchez DO 10/19/[address] Shannon mcleod MD 10/10/2015 Office visit Michelle Sanchez DO 09/28/2015 Office visit MICHELLE SANCHEZ DO 09/14/[address] Shannon mcleod MD 09/04/[address] [facility] [address] Shannon mcleod MD [address] Shannon mcleod MD 08/15/2015 Office visit Hali spangler MD 08/11/2015 Voided Neisha AmorDiana Cadet n SPECIAL DAY CLASS TEACHER 07/24/[address] Shannon mcleod MD 07/18/[address] [facility] [address] Shannon mcleod MD 07/17/[address] [facility] [address] Shannon mcleod MD 07/12/[address] Shannon mcleod MD 06/14/[address] Shannon mcleod MD 06/11/2015 Office visit Emily Heredia SPECIAL DAY CLASS TEACHER 05/29/2015 Office visit Sergey Anguiano MD 05/17/[address] Shannon mcleod MD 04/19/[address] Shannon mcleod MD 04/05/2015 Office visit Irina PINEDA RN 03/30/2015 Office visit Sergey Anguiano MD 03/22/[address] Shannon mcleod MD 01/13/[address] ROSANNA GRIGGS MD 01/04/2015 Office visit Irina PINEDA RN 12/16/2014 Office visit Sergey Anguiano MD 09/29/2014 Procedures Neisha lara SPECIAL DAY CLASS TEACHER 08/11/2014 Office visit Sergey Anguiano MD 05/26/2014 Office visit Sergey Anguiano MD 04/05/2014 Office visit Sergey Anguiano MD 09/16/2013 Office visit [place] SPECIAL DAY CLASS TEACHER 08/31/2012 Office visit Sergey Anguiano MD 06/03/2012 Office visit Liane Gamez MD 03/16/2012 Office visit [place] SPECIAL DAY CLASS TEACHER 10/18/2011 Procedures Liane Gamez MD 09/25/2011 Office visit Liane Gamez MD 07/26/2011 Office visit Sergey Anguiano MD 05/27/2011 Office visit Sergey Anguiano MD 11/06/2010 Office visit Sergey Anguiano MD 06/26/2010 Office visit Sergey Anguiano MD 05/28/2010 Office visit Sergey Anguiano MD 09/15/2009 Nurse visit Sergey Anguiano MD 07/18/2009 Office visit Sergey Anguiano MD
--- OUTSIDE RECORDS SUMMARY | 2019-07-07 16:31 | XMS REPORT ---
Author Author Genet Brown Organization [facility] Address [address] [place], [place] [id number] Care Team Providers Care Sow Farm Technician Name Role Phone Shannon Brown PCP Unavailable [...] REAL TIME W/IMAGE DCMTN T RANSVAG Reviewed 07/18/2009 12:00 AM IMMUNIZATION ADMIN Reviewed [...] Number Start Date BCBS Bcbs Of [place] [id number] Mo ndNovember 18, 2011 [employer] - RHC - [place] State Plan Amerigroup - [facility] State Plan [id number] N/A [place] Medical Assistance Program [place] Medical Sher[place] tance Prog [id number] Tuesday, 2009 [place] Logging Crew Supervisor Prog - RHC [place] Logging Crew Supervisor Prog - RH C [id number] N/A [facility] - [facility] - [facility] [place] [place] ealthCare RHC Comm [id number] N/A [employer] Financial Assistance [employer] Fin ancial Sheron 50 percent Tuesday, April 21, 2015 [employer] [place] State Plan [facility] [id number] N/A History of Encounters Visit Date Visit Type Provider 01/27/[address] Shannon white MD 01/06/2017 Office visit Neisha lara LEAD CUSTODIAN 02/28/2016 Office visit Neisha lara LEAD CUSTODIAN 01/29/2016 [facility] Kassandra Marin MD 12/12/[address] Shannon white MD 11/01/[address] [facility] [address] Shannon white MD 10/26/2015 Office visit Michelle Sanchez DO 10/19/[address] Shannon white MD 10/10/2015 Office visit Michelle Sanchez DO 09/28/2015 Office visit MICHELLE SANCHEZ DO 09/14/[address] Shannon white MD 09/04/[address] [facility] [address] Shannon white MD [address] Shannon white MD 08/15/2015 Office visit Hali spangler MD 08/11/2015 Voided Neisha lara LEAD CUSTODIAN 07/24/[address] Shannon white MD 07/18/[address] [facility] [address] Shannon white MD 07/17/[address] [facility] [address] Shannon white MD 07/12/[address] Shannon white MD 06/14/[address] Shannon white MD 06/11/2015 Office visit Emily Heredia LEAD CUSTODIAN 05/29/2015 Office visit Sergey Anguiano MD 05/17/[address] Shannon white MD 04/19/[address] Shannon white MD 04/05/2015 Office visit Irina PINEDA RN 03/30/2015 Office visit Sergey Anguiano MD 03/22/[address] Shannon white MD 01/13/[address] ROSANNA GRIGGS MD 01/04/2015 Office visit Irina PINEDA RN 12/16/2014 Office visit Sergey Anguiano MD 09/29/2014 Procedures Neisha lara LEAD CUSTODIAN 08/11/2014 Office visit Sergey Anguiano MD 05/26/2014 Office visit Sergey Anguiano MD 04/05/2014 Office visit Sergey Anguiano MD 09/16/2013 Office visit [place] LEAD CUSTODIAN 08/31/2012 Office visit Sergey Anguiano MD 06/03/2012 Office visit Liane Gamez MD 03/16/2012 Office visit [place] LEAD CUSTODIAN 10/18/2011 Procedures Liane Gamez MD 09/25/2011 Office visit Liane Gamez MD 07/26/2011 Office visit Sergey Anguiano MD 05/27/2011 Office visit Sergey Anguiano MD 11/06/2010 Office visit Sergey Anguiano MD 06/26/2010 Office visit Sergey Anguiano MD 05/28/2010 Office visit Sergey Anguiano MD 09/15/2009 Nurse visit Sergey Anguiano MD 07/18/2009 Office visit Sergey Anguiano MD
--- OUTSIDE RECORDS SUMMARY | 2019-07-07 16:31 | XMS REPORT ---
Author Author Genet Harper Organization [facility] Address [address] [place], [place] [address] Care Team Providers Care Grinding Wheel Operator Name Role Phone Lazarus Harper PCP Sergey Anguiano PreferredProvider Allergies and Adverse Reactions Name Reaction Notes NO KNOWN DRUG ALLERGIES Plan of Treatment Planned Activity Comments Planned Date Planned Time Plan/Goal GLUCOSE 50 gm 06/10/2017 12:00 AM CBC With Auto Differential 06/10/2017 12:00 AM Rhogam 06/10/2017 12:00 AM test, urine 01/02/2015 12:00 AM [...] Left Deltoid 07/18/2009 05/23/2006 999 Tdap 09/14/2015 [employer] SK[employer] BOOSTRIX [id number] Intramuscular Right Deltoid 09/14/2015 06/14/2014 115 Influenza 04/08/[address] [place] Fluarix [id number] Intramuscul ar Right Deltoid 04/08/2017 [...] Group Number Start Date BCBS Bcbs Of [place] [id number] Mo 2011 [employer] - RHC - [place] State Plan Amerigroup - [facility] State Plan [id number] N/A [place] Medical Assistance Program [place] Medical Sher[place] tance Prog [id number] Tuesday, 2009 [place] Propagation Manager Prog - RHC [place] Propagation Manager Prog - RH C [id number] N/A [facility] - [facility] - [facility] [place]note 2[facility] RHC Comm [id number] N/A [facility] Financial Assistance [facility] Fin ancial Sheron 50 percent Tuesday, April 21, 2015 [employer] [place] State Plan [facility] State Plan [id number] N/A History of Encounters Visit Date Visit Type Provider 06/10/2017 Office visit Lazarus Mcleod 04/29/2017 Office visit Lazarus Mcleod 04/08/[address] Shannon mcleod MD 03/11/[address] Shannon mcleod MD 02/24/[address] Shannon mcleod MD 01/27/[address] Shannon mcleod MD 01/06/2017 Office visit Neishamata lara STORE HOST 02/28/2016 Office visit Neisha lara STORE HOST 01/29/2016 Hospital Kassandra Marin MD 12/12/[address] Shannon mcleod MD 11/01/[address] [facility] [address] Shannon mcleod MD 10/26/2015 Office visit Michelle Sanchez DO 10/19/[address] Shannon mcleod MD 10/10/2015 Office visit Michelle Sanchez DO 09/28/2015 Office visit MICHELLE SANCHEZ DO 09/14/[address] Shannon mcleod MD 09/04/[address] [facility] [address] Shannon mcleod MD [address] Shannon mcleod MD 08/15/2015 Office visit Hali spangler MD 08/11/2015 Voided Neisha lara STORE HOST 07/24/[address] Shannon mcleod MD 07/18/[address] [facility] [address] Shannon mcleod MD 07/17/[address] [facility] [address] Shannon mcleod MD 07/12/[address] Shannon mcleod MD 06/14/[address] Shannon mcleod MD 06/11/2015 Office visit Emily Heredia STORE HOST 05/29/2015 Office visit Sergey Anguiano MD 05/17/[address] Shannon mcleod MD 04/19/[address] Shannon mcleod MD 04/05/2015 Office visit Irina PINEDA RN 03/30/2015 Office visit Sergey Anguiano MD 03/22/[address] Shannon mcleod MD 01/13/[address] ROSANNA GRIGGS MD 01/04/2015 Office visit Irina PINEDA RN 12/16/2014 Office visit Sergey Anguiano MD 09/29/2014 Procedures Neishacj lara STORE HOST 08/11/2014 Office visit Sergey Anguiano MD 05/26/2014 Office visit Sergey Anguiano MD 04/05/2014 Office visit Sergey Anguiano MD 09/16/2013 Office visit [place] STORE HOST 08/31/2012 Office visit Sergey Anguiano MD 06/03/2012 Office visit Liane Gamez MD 03/16/2012 Office visit [place] STORE HOST 10/18/2011 Procedures Liane Gamez MD 09/25/2011 Office visit Liane Gamez MD 07/26/2011 Office visit Sergey Anguiano MD 05/27/2011 Office visit Sergey Anguiano MD 11/06/2010 Office visit Sergey Anguiano MD 06/26/2010 Office visit Sergey Anguiano MD 05/28/2010 Office visit Sergey Anguiano MD 09/15/2009 Nurse visit Sergey Anguiano MD 07/18/2009 Office visit Sergey Anguiano MD
--- OUTSIDE RECORDS SUMMARY | 2019-07-07 16:32 | XMS REPORT ---
Author Author Genet Brown Organization [facility] Address [address] [place], [place] [address] Care Team Providers Care Donor Relations Coordinator Name Role Phone Shannon Brown PCP Unavailable [...] Number Start Date BCBS Bcbs Of [place] [id number] Mo 2011 [employer]igroup - RHC - [place] State Plan Amerigroup - [facility] State Plan [id number] N/A [place] Medical Assistance Program [place] Medical Sher[place] tance Prog [id number] Tuesday, 2009 [place] Textile Machinery Sales Representative Prog - RHC [place] [employer] Sales Representative Prog - RH C [id number] N/A [facility] - B[facility] RHC Comm [id number] N/A [facility] Financial Assistance [facility] Fin ancial Sheron 50 percent Tuesday, April 21, 2015 [employer] [place] State Plan [facility] [id number] N/A History of Encounters Visit Date Visit Type Provider 03/11/[address] Shannon white MD 02/24/[address] Shannon white MD 01/27/[address] Shannon white MD 01/06/2017 Office visit Neisha lara DRILLER'S OFFSIDER 02/28/2016 Office visit Neisha lara DRILLER'S OFFSIDER 01/29/2016 [facility] Kassandra Marin MD 12/12/[address] Shannon white MD 11/01/[address] [facility] [address] Shannon white MD 10/26/2015 Office visit Michelle Sanchez DO 10/19/[address] Shannon white MD 10/10/2015 Office visit Michelle Sanchez DO 09/28/2015 Office visit MICHELLE SANCHEZ DO 09/14/[address] Shannon white MD 09/04/[address] [facility] [address] Shannon white MD [address] Shannon white MD 08/15/2015 Office visit Hali spangler MD 08/11/2015 Voided Neisha AmorDiana Cadet n DRILLER'S OFFSIDER 07/24/[address] Shannon white MD 07/18/[address] [facility] [address] Shannon white MD 07/17/[address] [facility] [address] Shannon white MD 07/12/[address] Shannon white MD 06/14/[address] Shannon white MD 06/11/2015 Office visit Emily Heredia DRILLER'S OFFSIDER 05/29/2015 Office visit Sergey Anguiano MD 05/17/[address] Shannon white MD 04/19/[address] Shannon white MD 04/05/2015 Office visit Irina PINEDA RN 03/30/2015 Office visit Sergey Anguiano MD 03/22/[address] Shannon white MD 01/13/[address] ROSANNA GRIGGS MD 01/04/2015 Office visit Irina PINEDA RN 12/16/2014 Office visit Sergey Anguiano MD 09/29/2014 Procedures Neisha Cadet n DRILLER'S OFFSIDER 08/11/2014 Office visit Sergey Anguiano MD 05/26/2014 Office visit Sergey Anguiano MD 04/05/2014 Office visit Sergey Anguiano MD 09/16/2013 Office visit [place] DRILLER'S OFFSIDER 08/31/2012 Office visit Sergey Anguiano MD 06/03/2012 Office visit Liane Gamez MD 03/16/2012 Office visit [place] DRILLER'S OFFSIDER 10/18/2011 Procedures Liane Gamez MD 09/25/2011 Office visit Liane Gamez MD 07/26/2011 Office visit Sergey Anguiano MD 05/27/2011 Office visit Sergey Anguiano MD 11/06/2010 Office visit Sergey Anguiano MD 06/26/2010 Office visit Sergey Anguiano MD 05/28/2010 Office visit Sergey Anguiano MD 09/15/2009 Nurse visit Sergey Anguiano MD 07/18/2009 Office visit Sergey Anguiano MD
--- OUTSIDE RECORDS SUMMARY | 2019-07-07 16:32 | XMS REPORT ---
Author Author Genet Rebolledo Organization [facility] ou Address [address] [place], [place] [id number] Care Team Providers Care Integration Lead Name Role Phone Michelle Rebolledo PCP Unavailable [...] 0.0302 ug/mLAFP Mo M 0.91 hCG Value 42364.0 mIU/mLhCG MoM 1.27 uE3 Value 1.550 ng/mLuE3 MoM 1.63 SHINE Value 190.730 pg/mLDIA MoM 1.15 [place]BR [place] 1 [place] [address] DSR (Second Trimester) 1IN 5960 DSR (By [...] Left Deltoid 07/18/2009 05/23/2006 999 Tdap 09/14/2015 GlaxoSmImmunovaccineine SKB BOOSTRIX [id number] Intramuscular Right Deltoid 09/14/2015 [...] 2015 2:27PM Term Oct 26 2015 3:17PM Payers Insurance Name Company Name Plan Name Plan Number Policy Number Javier cy Group Number Start Date [facility] [id number] Mo nd, 2011 [employer] Financial Assistance [employer] Fin ancial Sheron 50 percent Tuesday, April 21, 2015 [place] Medical Assistance [place] Medical Sher[place] tance Prog [id number] Tuesday, April 21, 2009 [place] Center Administrator Prog - RHC [place] Center Administrator Prog - RH C [id number] N/A [facility] - C - [facility] ealthCare RHC Comm [id number] N/A History of Encounters Visit Date Visit [...] Hali spangler MD 08/11/2015 Voided Neisha lara ASSISTANT PURCHASING MANAGER 07/24/[address] Shannon white MD [...] Sergey Anguiano MD 09/29/2014 Procedures Neisha lara ASSISTANT PURCHASING MANAGER 08/11/2014 Office visit Sergey Anguiano MD 05/26/2014 Office visit Sergey Anguiano MD 04/05/2014 Office visit Sergey Anguiano MD 09/16/2013 Office visit [place] APRN 08/31/2012 Office visit Sergey Anguiano MD 06/03/2012 Office visit Liane Gamez MD 03/16/2012 Office visit [place] ASSISTANT PURCHASING MANAGER 10/18/2011 Procedures Liane Gamez MD 09/25/2011 Office visit Liane Gamez MD 07/26/2011 Office visit Sergey Anguiano MD 05/27/2011 Office visit Sergey Anguiano MD 11/06/2010 Office visit Sergey Anguiano MD 06/26/2010 Office visit Sergey Anguiano MD 05/28/2010 Office visit Sergey Anguiano MD 09/15/2009 Nurse visit Sergey Anguiano MD 07/18/2009 Office visit Sergey Anguiano MD
--- OUTSIDE RECORDS SUMMARY | 2019-07-07 16:32 | XMS REPORT ---
Author Author Genet Brown Organization [facility] ou Address [address] [place], [place] [id number] Care Team Providers Care Integrated Circuit Ic Layout Designer Name Role Phone Shannon Brown PCP Unavailable [...] times a day for 5 days Zithromax Z-Lforentino 250 mg oral tablet 03/20/2012 03/21/2012 take [...] 0.0302 ug/mLAFP Mo M 0.91 hCG Value 57964.0 mIU/mLhCG MoM 1.27 uE3 Value 1.550 ng/mLuE3 MoM 1.63 SHINE Value 190.730 pg/mLDIA MoM 1.15 [place] 1 [place] [address] DSR (Second Trimester) 1IN 5960 DSR (By [...] Left Deltoid 07/18/2009 05/23/2006 999 Tdap 09/14/2015 GlaxSensopia SKB BOOSTRIX [id number] Intramuscular Right Deltoid 09/14/2015 [...] cy Group Number Start Date BCBS Bcbs [facility] [id number] Mo nday, 2011 [employer] ID State Plan [employer] ID State Plan [id number] N/A [place] Medical Assistance Program [place] Medical Sher[place] tance Prog [id number] Tuesday, 2009 [place] Letterpress Printing Machinist Prog - RHC [place] Letterpress Printing Machinist Prog - RH C [id number] N/A [place] [facility] - RHC - [facility] ealthCare RHC Comm [id number] N/A [employer] Financial Assistance [employer] Fin ancial Sheron 50 percent Tuesday, April 21, 2015 History of Encounters Visit Date Visit Type Provider 11/01/[address] [facility] [address] Shannon white MD 10/26/2015 Office visit Michelle Rebolledo DO 10/19/[address] Shannon white MD 10/10/2015 Office visit Michelle Rebolledo DO 09/28/2015 Office visit MICHELLE REBOLLEDO DO 09/14/[address] Shannon white MD 09/04/[address] [facility] [address] Shannon white MD [address] Shannon white MD 08/15/2015 Office visit Hali spangler MD 08/11/2015 Voided Neisha lara HOUSEKEEPING DIRECTOR 07/24/[address] Shannon white MD 07/18/[address] [facility] [address] Shannon white MD 07/12/2015 Office [...] visit Sergey Anguiano MD 09/29/2014 Procedures Neisha Mullinsjose l lara HOUSEKEEPING DIRECTOR 08/11/2014 Office visit Sergey Anguiano MD 05/26/2014 Office visit Sergey Anguiano MD 04/05/2014 Office visit Sergey Anguiano MD 09/16/2013 Office visit [place] HOUSEKEEPING DIRECTOR 08/31/2012 Office visit Sergey Anguiano MD 06/03/2012 Office visit Liane Gamez MD 03/16/2012 Office visit [place] HOUSEKEEPING DIRECTOR 10/18/2011 Procedures Liane Gamez MD 09/25/2011 Office visit Liane Gamez MD 07/26/2011 Office visit Sergey Anguiano MD 05/27/2011 Office visit Sergey Anguiano MD 11/06/2010 Office visit Sergey Anguiano MD 06/26/2010 Office visit Sergey Anguiano MD 05/28/2010 Office visit Sergey Anguiano MD 09/15/2009 Nurse visit Sergey Anguiano MD 07/18/2009 Office visit Sergey Anguiano MD
--- OUTSIDE RECORDS SUMMARY | 2019-07-07 16:33 | XMS REPORT ---
Author Genet Cornelius Organization [facility] ou Address [address] [place], [place] [phone] Care Team Providers Care Buffing Wheel Former Machine Name Role Phone Michelle Rebolledo PCP Unavailable Allergies and Adverse Reactions Name Reaction Notes NO KNOWN DRUG ALLERGIES Plan of Treatment Planned Activity Comments Planned Date Planned Time Plan/Goal URINALYSIS AUTO W/O SCOPE 04/05/2015 12:00 AM CULTURE SCREEN ONLY 10/10/2015 12:00 AM URINE TEST 01/02/2015 12:00 AM [...] 0.0302 ug/mLAFP Mo M 0.91 hCG Value 78462.0 mIU/mLhCG MoM 1.27 uE3 Value 1.550 ng/mLuE3 MoM 1.63 SHINE Value 190.730 pg/mLDIA MoM 1.15 OSBR [place] 1 [place] [address] DSR (Second Trimester) 1IN 5960 DSR (By [...] Normal first confirmed, currently in third t ester Sep 14 2015 2:54PM History of pyelonephritis Sep 14 2015 2:54PM Need for Tdap vaccine Sep 14 2015 2:57PM Group B Strep Screening, Oct 10 2015 2:27PM Payers Insurance Name Company Name Plan Name Plan Number Policy Number Javier cy Group Number Start Date BCBS Bcbs [facility] [id number] Mo 2011 [employer] Financial Assistance [facility] Fin ancial Sheron 50 percent Tuesday, April 21, 2015 [place] Medical Assistance Program [place] Medical Sher[place] tanmagda Prog [id number] Tuesday, April 21, 2009 [place] Rolls Baker Prog - RHC [place] Rolls Baker Prog - RH C [id number] N/A [facility] - [facility] - [facility] [id number] N/A History of Encounters Visit Date Visit Type Provider 10/10/2015 Office visit Michelledavid Rebolledo DO 09/28/2015 Office visit MICHELLE WOOD DO 09/14/[address] Shannon white MD 09/04/[address] Shannon white MD [address] Shannon hwite MD 08/15/2015 Office visit Hali spangler MD 08/11/2015 Voided Neisha lara CABLE ASSEMBLER AND SWAGER 07/24/[address] Shannon white MD 07/18/2015 [facility] Dr[facility] Shannon white MD 07/12/[address] Shannon white MD 06/14/[address] Shannon white MD 06/11/2015 Office visit Emily Heredia CABLE ASSEMBLER AND SWAGER 05/29/2015 Office visit Sergey Anguiano MD 05/17/[address] Shannon white MD 04/19/[address] Shannon white MD 04/05/2015 Office visit Irina PINEDA RN 03/30/2015 Office visit Sergey Anguiano MD 03/22/[address] Shannon white MD 01/13/[address] ROSANNA GRIGGS MD 01/04/2015 Office visit Irina PINEDA RN 12/16/2014 Office visit Sergey Anguiano MD 09/29/2014 Procedures Neisha lara CABLE ASSEMBLER AND SWAGER 08/11/2014 Office visit Sergey Anguiano MD 05/26/2014 Office visit Sergey Anguiano MD 04/05/2014 Office visit Sergey Anguiano MD 09/16/2013 Office visit [place] CABLE ASSEMBLER AND SWAGER 08/31/2012 Office visit Sergey Anguiano MD 06/03/2012 Office visit Liane Gamez MD 03/16/2012 Office visit [place] CABLE ASSEMBLER AND SWAGER 10/18/2011 Procedures Liane Gamez MD 09/25/2011 Office visit Liane Gamez MD 07/26/2011 Office visit Sergey Anguiano MD 05/27/2011 Office visit Sergey Anguiano MD 11/06/2010 Office visit Sergey Anguiano MD 06/26/2010 Office visit Sergey Anguiano MD 05/28/2010 Office visit Sergey Anguiano MD 09/15/2009 Nurse visit Sergey Anguiano MD 07/18/2009 Office visit Sergey Anguiano MD
--- OUTSIDE RECORDS SUMMARY | 2019-07-07 16:33 | XMS REPORT ---
Author Author Genet Brown Organization [facility] ou Address [address] [place] [phone] Care Team Providers Care Pasteurizing Machine Operator Name Role Phone Shannon Brown PCP [...] table t by oral route once daily amoxicillin 500 mg oral capsule 08/15/2015 08/22/2015 take 1 capsule (500 mg) by oral route every 8 hours for 7 days Name Start Date Expiration Date SIG [...] 875 mg oral tablet 05/26/2014 06/02/2014 t nanic 1 tablet (875 mg) by oral route [...] 08/15/2015 12:00 AM URINE CULTURE/COLONY COUNT Returned 09/25/2011 [...] 0.0302 ug/mLAFP Mo M 0.91 hCG Value 60682.0 mIU/mLhCG MoM 1.27 uE3 Value 1.550 ng/mLuE3 MoM 1.63 SHINE Value 190.730 pg/mLDIA MoM 1.15 [place] [address] DSR (Second Trimester) 1IN 5960 DSR (By [...] 2015 3:44PM Cystitis Aug 15 2015 6:05PM Payers Insurance Name Company Name Plan Name Plan Number Policy Number Javier cy Group Number Start Date BCBS [facility] [id number] Mo 2011 [place] Medical Assistance Program [place] Medical Sher[place] tance Prog [id number] Tuesday, 2009 [place] Surgical Lead Prog - RHC [place] Surgical Lead Prog - RH C [id number] N/A [facility] Comm [id number] N/A History of Encounters Visit Date Visit Type Provider [address] Shannon white MD 08/15/2015 Office visit Hali spangler MD 08/11/2015 Voided Neisha AmorDiana Cadet n WAREHOUSE MANAGER 07/24/[address] Shannon white MD 07/18/2015 [facility] [address] Shannon white MD 07/12/[address] Shannon white MD 06/14/[address] Shannon white MD 06/11/2015 Office visit Emily [place] WAREHOUSE MANAGER 05/29/2015 Office visit Sergey Anguiano MD 05/17/[address] Shannon white MD 04/19/[address] Shannon white MD 04/05/2015 Office visit Irina PINEDA RN 03/30/2015 Office visit Sergey Anguiano MD 03/22/[address] Shannon white MD 01/13/[address] ROSANNA GRIGGS MD 01/04/2015 Office visit Irina PINEDA RN 12/16/2014 Office visit Sergey Anguiano MD 09/29/2014 Procedures Neisha AmorDiana Cadet n WAREHOUSE MANAGER 08/11/2014 Office visit Sergey Anguiano MD 05/26/2014 Office visit Sergey Anguiano MD 04/05/2014 Office visit Sergey Anguiano MD 09/16/2013 Office visit [place] WAREHOUSE MANAGER 08/31/2012 Office visit Sergey Anguiano MD 06/03/2012 Office visit Liane Gamez MD 03/16/2012 Office visit [place] WAREHOUSE MANAGER 10/18/2011 Procedures Liane Gamez MD 09/25/2011 Office visit Liane Gamez MD 07/26/2011 Office visit Sergey Anguiano MD 05/27/2011 Office visit Sergey Anguiano MD 11/06/2010 Office visit Sergey Anguiano MD 06/26/2010 Office visit Sergey Anguiano MD 05/28/2010 Office visit Sergey Anguiano MD 09/15/2009 Nurse visit Sergey Anguiano MD 07/18/2009 Office visit Sergey Anguiano MD
--- OUTSIDE RECORDS SUMMARY | 2019-07-07 16:33 | XMS REPORT ---
Author Author Genet Braxton Organization [facility] oup Address [address] [place], [place] [phone] Care Team Providers Care Production Manufacturing Worker Name Role Phone Hali Braxton PCP Allergies and Adverse Reactions Name Reaction Notes NO KNOWN DRUG ALLERGIES Plan of Treatment Planned Activity Comments Planned Date Planned Time Plan/Goal URINALYSIS AUTO W/O SCOPE 04/05/2015 12:00 AM URINE CULTURE/COLONY COUNT 08/15/2015 12:00 AM URINE TEST 01/02/2015 12:00 AM [...] 6:07 PM URINALYSIS AUTO W/O SCOPE Reviewed 09/25/2011 [...] 0.0302 ug/mLAFP Mo M 0.91 hCG Value 50133.0 mIU/mLhCG MoM 1.27 uE3 Value 1.550 ng/mLuE3 MoM 1.63 GITA Value 190.730 pg/mLDIA MoM 1.15 [place] 1 [place] [address] DSR (Second Trimester) 1IN 5960 DSR (By [...] Number Javier Group Number Start Date BCBS [facility] [id number] Mo 2011 [place] Medical Assistance Program [place] Medical Sheron tance Prog [id number] Tuesday, 2009 [place] Clinical Education Specialist Prog - RHC [place] Clinical Education Specialist Prog - RH C [id number] N/A [facility] - [facility] - [facility] Comm [id number] N/A History of Encounters Visit Date Visit Type Provider 08/15/2015 Office visit Hali spangler MD 08/11/2015 Voided Neisha lara ARMORED CAR DRIVER 07/24/[address] Shannon white MD 07/18/[address] Shannon white MD 07/12/[address] Shannon white MD 06/14/[address] Shannon white MD 06/11/2015 Office visit Emily Hered[place] ARMORED CAR DRIVER 05/29/2015 Office visit Sergey Anguiano MD 05/17/[address] Shannon white MD 04/19/[address] Shannon white MD 04/05/2015 Office visit Irina PINEDA RN 03/30/2015 Office visit Sergey Anguiano MD 03/22/[address] Shannon white MD 01/13/[address] ROSANNA GRIGGS MD 01/04/2015 Office visit Irina PINEDA RN 12/16/2014 Office visit Sergey Anguiano MD 09/29/2014 Procedures Neisha lara ARMORED CAR DRIVER 08/11/2014 Office visit Sergey Anguiano MD 05/26/2014 Office visit Sergey Anguiano MD 04/05/2014 Office visit Sergey Anguiano MD 09/16/2013 Office visit [place] ARMORED CAR DRIVER 08/31/2012 Office visit Sergey Anguiano MD 06/03/2012 Office visit Liane Gamez MD 03/16/2012 Office visit [place] ARMORED CAR DRIVER 10/18/2011 Procedures Liane Gamez MD 09/25/2011 Office visit Liane Gamez MD 07/26/2011 Office visit Sergey Anguiano MD 05/27/2011 Office visit Sergey Anguiano MD 11/06/2010 Office visit Sergey Anguiano MD 06/26/2010 Office visit Sergey Anguiano MD 05/28/2010 Office visit Sergey Anguiano MD 09/15/2009 Nurse visit Sergey Anguiano MD 07/18/2009 Office visit Sergey Anguiano MD
--- OUTSIDE RECORDS SUMMARY | 2019-07-07 16:34 | XMS REPORT ---
Author Author Genet Rebolledo Organization [facility] ou Address [address] [place], [place] [phone] Care Team Providers Care Process Engineering Manager Name Role Phone Michelle Rebolledo PCP Unavailable [...] 0.0302 ug/mLAFP Mo M 0.91 hCG Value 24149.0 mIU/mLhCG MoM 1.27 uE3 Value 1.550 ng/mLuE3 MoM 1.63 SHINE Value 190.730 pg/mLDIA MoM 1.15 [place]BR [place] 1 [place] [address] DSR (Second Trimester) 1IN 5960 DSR (By [...] Left Deltoid 07/18/2009 05/23/2006 999 Tdap 09/14/2015 GlaxoSmAkerminine SKB BOOSTRIX [id number] Intramuscular Right Deltoid 09/14/2015 [...] Javier cy Group Number Start Date [facility] [id number] Mo nd, 2011 [employer] Financial Assistance [employer] Fin ancial Sheron 50 percent Tuesday, April 21, 2015 [place] Medical Assistance Program [place] Medical Sher[place] tance Prog [id number] Tuesday, April 21, 2009 [place] Tuck Pointer Helper Prog - RHC [place] Tuck Pointer Helper Prog - RH C [id number] N/A [facility] - C - [facility] [place] ealthCare RHC Comm [id number] N/A History of Encounters Visit Date Visit [...] Hali spangler MD 08/11/2015 Voided Neisha lara HUMAN PERFORMANCE CONSULTANT 07/24/[address] Shannon white MD [...] Sergey Anguiano MD 09/29/2014 Procedures Neisha lara HUMAN PERFORMANCE CONSULTANT 08/11/2014 Office visit Sergey Anguiano MD 05/26/2014 Office visit Sergey Anguiano MD 04/05/2014 Office visit Sergey Anguiano MD 09/16/2013 Office visit [place] APRN 08/31/2012 Office visit Sergey Anguiano MD 06/03/2012 Office visit Liane Gamez MD 03/16/2012 Office visit [place] HUMAN PERFORMANCE CONSULTANT 10/18/2011 Procedures Liane Gamez MD 09/25/2011 Office visit Liane Gamez MD 07/26/2011 Office visit Sergey Anguiaon MD 05/27/2011 Office visit Sergey Anguiano MD 11/06/2010 Office visit Sergey Anguiano MD 06/26/2010 Office visit Sergey Anguiano MD 05/28/2010 Office visit Sergey Anguiano MD 09/15/2009 Nurse visit Sergey Anguiano MD 07/18/2009 Office visit Sergey Anguiano MD
--- OUTSIDE RECORDS SUMMARY | 2019-07-07 16:34 | XMS REPORT ---
Author Author Genet Brown Organization [facility] oup Address [address] [place], [place] [phone] Care Team Providers Care Head Automatic Sawyer Name Role Phone Shannon Brown PCP Unavailable [...] 0.0302 ug/mLAFP Mo M 0.91 hCG Value 17545.0 mIU/mLhCG MoM 1.27 uE3 Value 1.550 ng/mLuE3 MoM 1.63 GITA Value 190.730 pg/mLDIA MoM 1.15 [place] 1 [place] [address] DSR (Second Trimester) 1IN 5960 DSR (By [...] Number Start Date BCBS Bcbs Of [place] [id number] Mo 2011 [place] Medical Assistance Program [place] Medical Sheron tance Prog [id number] Tuesday, 2009 [place] Demographer Prog - RHC [place] Demographer Prog - RH C [id number] N/A [facility] - RHC - Community Plan [facility] RHC Comm [id number] N/A History of Encounters Visit Date Visit [...] Sergey Anguiano MD 09/29/2014 Procedures Neisha lara OUTREACH CONSULTANT 08/11/2014 Office visit Sergey Anguiano MD 05/26/2014 Office visit Sergey Anguiano MD 04/05/2014 Office visit Sergey Anguiano MD 09/16/2013 Office visit [place] APRN 08/31/2012 Office visit Sergey Anguiano MD 06/03/2012 Office visit Liane Gamez MD 03/16/2012 Office visit [place] OUTREACH CONSULTANT 10/18/2011 Procedures Liane Gamez MD 09/25/2011 Office visit Liane Gamez MD 07/26/2011 Office visit Sergey Anguiano MD 05/27/2011 Office visit Sergey Anguiano MD 11/06/2010 Office visit Sergey Anguiano MD 06/26/2010 Office visit Sergey Anguiano MD 05/28/2010 Office visit Sergey Anguiano MD 09/15/2009 Nurse visit Sergey Anguiano MD 07/18/2009 Office visit Sergey Anguiano MD
--- OUTSIDE RECORDS SUMMARY | 2019-07-07 16:34 | XMS REPORT ---
Author Author Genet Brown Organization [facility] oup Address [address] [place] [phone] Care Team Providers Care Manager Of Financial Reporting Name Role Phone Shannon Brown PCP Unavailable [...] Disorder Active Vital Signs Date Time BP-Sys(mm[Hg] BP-Giat(mm[Hg]) HR(bpm) RR(rpm) Temp WT HT HC BMI [...] 0.0302 ug/mLAFP Mo M 0.91 hCG Value 23291.0 mIU/mLhCG MoM 1.27 uE3 Value 1.550 ng/mLuE3 MoM 1.63 GITA Value 190.730 pg/mLDIA MoM 1.15 OSBR [place] 1 [place] [address] DSR (Second Trimester) 1IN 5960 DSR (By [...] Start Date BCBS Bcbs Of [place] [id number] Mo , 2011 [place] Medical Assistance Program [place] Medical Sheron tance Prog [id number] Tuesday, 2009 [place] Studio Couch Frame Builder Prog - RHC [place] Studio Couch Frame Builder Prog - RH C [id number] N/A [facility] - Community Plan [facility] Comm [id number] N/A History of Encounters Visit Date Visit [...]
--- OUTSIDE RECORDS SUMMARY | 2019-07-07 16:35 | XMS REPORT ---
Author Author Genet Brown Organization [facility] ou Address [address] [place] [phone] Care Team Providers Care Seeing Eye Dog Teacher Name Role Phone Shannon Brown PCP Unavailable Allergies and Adverse Reactions Name Reaction Notes NO KNOWN DRUG ALLERGIES Plan of Treatment Planned Activity Comments Planned Date Planned Time Plan/Goal URINALYSIS AUTO W/O SCOPE 04/05/2015 12:00 AM GLUCOSE TOLERANCE TEST (GTT) 08/22/2015 12:00 AM URINE TEST 01/02/2015 12:00 AM Medications Active Name Start Date Estimated Completion Date SIG Co mments Vitamin oral tablet take 1 table t by oral route once daily amoxicillin 500 mg oral capsule 08/15/2015 08/22/2015 take 1 capsule (500 mg) by oral route every 8 hours for 7 days ferrous sulfate 325 mg (65 mg iron) [...] AM COMPLETE CBC W/AUTO DIFF WBC Returned 09/25/2011 12:00 AM CHLAMYDIA CULTURE Returned [...] 0.0302 ug/mLAFP Mo M 0.91 hCG Value 59872.0 mIU/mLhCG MoM 1.27 uE3 Value 1.550 ng/mLuE3 MoM 1.63 SHINE Value 190.730 pg/mLDIA MoM 1.15 [place]BR [place] 1 [place] [address] DSR (Second Trimester) 1IN 5960 DSR (By [...] 1.86 #MONO 0.59 #EOS 0.16 #BASO 0.04 History Of Immunizations Name Date Admin Mfg [...] rtum, second trimester Aug 22 2015 3:50PM Payers Insurance Name Company Name Plan Name Plan Number Policy Number Javier cy Group Number Start Date BCBS Bcbs Of [place] [id number] Mo 2011 [place] Medical Assistance Program [place] Medical Sheron tance Prog [id number] Tuesday, 2009 [place] Employee Benefits Specialist Prog - RHC [place] Employee Benefits Specialist Prog - RH C [id number] N/A [facility] Comm [id number] N/A History of Encounters Visit Date Visit Type Provider [address] Shannon white MD 08/15/2015 Office visit Hali spangler MD 08/11/2015 Voided Neisha lara MACHINE SANDER 07/24/[address] Shannon white MD 07/18/[address] [facility] [address] Shannon white MD 07/12/[address] Shannon white MD 06/14/[address] Shannon white MD 06/11/2015 Office visit Emily Heredia MACHINE SANDER 05/29/2015 Office visit Sergey Anguiano MD 05/17/[address] Shannon white MD 04/19/[address] Shannon white MD 04/05/2015 Office visit Irina PINEDA RN 03/30/2015 Office visit Sergey Anguiano MD 03/22/[address] Shannon white MD 01/13/[address] ROSANNA GRIGGS MD 01/04/2015 Office visit Irina PINEDA RN 12/16/2014 Office visit Sergey Anguiano MD 09/29/2014 Procedures Neisha AmorDiana lara MACHINE SANDER 08/11/2014 Office visit Sergey Anguiano MD 05/26/2014 Office visit Sergey Anguiano MD 04/05/2014 Office visit Sergey Anguiano MD 09/16/2013 Office visit [place] MACHINE SANDER 08/31/2012 Office visit Sergey Anguiano MD 06/03/2012 Office visit Liane Gamez MD 03/16/2012 Office visit [place] MACHINE SANDER 10/18/2011 Procedures Liane Gamez MD 09/25/2011 Office visit Liane Gamez MD 07/26/2011 Office visit Sergey Anguiano MD 05/27/2011 Office visit Sergey Anguiano MD 11/06/2010 Office visit Sergey Anguiano MD 06/26/2010 Office visit Sergey Anguiano MD 05/28/2010 Office visit Sergey Anguiano MD 09/15/2009 Nurse visit Sergey Anguiano MD 07/18/2009 Office visit Sergey Anguiano MD
--- OUTSIDE RECORDS SUMMARY | 2019-07-07 16:35 | XMS REPORT ---
Author Author Genet Brown Organization [facility] Physicians oup Address [address] [place], [place] [address] Care Team Providers Care Full Stack Developer Name Role Phone Shannon Brown PCP Unavailable [...] Group Number Start Date BCBS Bc Of [place] [id number] Mo 2011 [place] Medical Assistance [place] Medical Sheron tance Prog [id number] Tuesday, 2009 [place] [employer] Librarian Prog - RHC [place] [employer] Librarian Prog - RH C [id number] N/A [facility] - [facility] - Community Plan [facility] Comm [id number] N/A History of Encounters Visit Date Visit Type Provider 04/19/[address] Shannon white MD 04/05/2015 Office visit Irina PINEDA RN 03/30/2015 Office visit Sergey Anguiano MD 03/22/[address] Shannon white MD 01/13/[address] ROSANNA GRIGGS MD 01/04/2015 Office visit Irina PINEDA RN 12/16/2014 Office visit Sergey Anguiano MD 09/29/2014 Procedures Neisha AmorDiana lara COMMUNICATION ELECTRONIC TECHNICIAN 08/11/2014 Office visit Sergey Anguiano MD 05/26/2014 Office visit Sergey Anguiano MD 04/05/2014 Office visit Sergey Anguiano MD 09/16/2013 Office visit [place] COMMUNICATION ELECTRONIC TECHNICIAN 08/31/2012 Office visit Sergey Anguiano MD 06/03/2012 Office visit Liane Gamez MD 03/16/2012 Office visit [place] COMMUNICATION ELECTRONIC TECHNICIAN 10/18/2011 Procedures Liane Gamez MD 09/25/2011 Office visit Liane Gamez MD 07/26/2011 Office visit Sergey Anguiano MD 05/27/2011 Office visit Sergey Anguiano MD 11/06/2010 Office visit Sergey Anguiano MD 06/26/2010 Office visit Sergey Anguiano MD 05/28/2010 Office visit Sergey Anguiano MD 09/15/2009 Nurse visit Sergey Anguiano MD 07/18/2009 Office visit Sergey Anguiano MD
--- OUTSIDE RECORDS SUMMARY | 2019-07-07 16:35 | XMS REPORT ---
Author Author Genet Brown Organization [facility] Physicians oup Address [address] [place] [id number] Care Team Providers Care Biodiesel Division Manager Name Role Phone Shannon Brown PCP Unavailable [...] 0.0302 ug/mLAFP Mo M 0.91 hCG Value 72126.0 mIU/mLhCG MoM 1.27 uE3 Value 1.550 ng/mLuE3 MoM 1.63 GTIA Value 190.730 pg/mLDIA MoM 1.15 OSBR Risk 1 [place] [address] DSR (Second Trimester) 1IN 5960 DSR (By [...] Number Start Date BCBS Bcbs Of [place] [id number] Mo , 2011 [place] Medical Assistance Program [place] Medical Sheron tance Prog [id number] Tuesday, 2009 [place] Heater Helper Prog - RHC [place] Heater Helper Prog - RH C [id number] N/A [facility] - Community Plan [facility] Comm [id number] N/A History of Encounters Visit Date Visit [...]
--- OUTSIDE RECORDS SUMMARY | 2019-07-07 16:36 | XMS REPORT ---
Author Author Genet Harper Organization [facility] Physicians Gr ou Address [address] [place], [place] [address] Care Team Providers Care Propulsion Machinery Service Engineer Name Role Phone Lazarus Harper PCP Sergey [...] Left Deltoid 07/18/2009 05/23/2006 999 Tdap 09/14/2015 Rivalroo SKB BOOSTRIX [id number] Intramuscular Right Deltoid 09/14/2015 06/14/2014 115 Influenza 04/08/2017 [facility] [facility] SK Fluarix [id number] Intramuscul ar Right Deltoid [...] Number Start Date BCBS Bcbs Of [place] [id number] Mo 2011 [employer] - RHC - [place] State Plan [employer] - [facility] State Plan [id number] N/A [place] Medical Assistance Program [place] Medical Sheron tance Prog [id number] Tuesday, 2009 [place] Curtain Drier Prog - RHC [place] Curtain Drier Prog - RH C [id number] N/A [facility] - [facility] - [facility] Comm [id number] N/A [facility] Financial Assistance [facility] Fin ancial Sheron 50 percent Tuesday, April 21, 2015 [employer] [place] State Plan [facility] State Plan [id number] N/A History of Encounters Visit Date Visit Type Provider 06/10/2017 Office visit Lazarus Mcleod 04/29/2017 Office visit Lazarus Mcleod 04/08/[address] Shannon mcleod MD 03/11/[address] Shannon mcleod MD 02/24/[address] Shannon mcleod MD 01/27/[address] Shannon mcleod MD 01/06/2017 Office visit Neishamata lara SHACKLER 02/28/2016 Office visit Neisha lara SHACKLER 01/29/2016 Hospital Kassandra Marin MD 12/12/[address] Shannon mcleod MD 11/01/[address] [facility] [address] Shannon mcleod MD 10/26/2015 Office visit Michelle Sanchez DO 10/19/[address] Shannon mcleod MD 10/10/2015 Office visit Michelle Sanchez DO 09/28/2015 Office visit MICHELLE SANCHEZ DO 09/14/[address] Shannon mcleod MD 09/04/[address] [facility] [address] Shannon mcleod MD [address] Shannon mcleod MD 08/15/2015 Office visit Hali spangler MD 08/11/2015 Voided Neisha lara SHACKLER 07/24/[address] Shannon mcleod MD 07/18/[address] [facility] [address] Shannon mcleod MD 07/17/[address] [facility] [address] Shannon mcleod MD 07/12/[address] Shannon mcleod MD 06/14/[address] Shannon mcleod MD 06/11/2015 Office visit Emily Heredia SHACKLER 05/29/2015 Office visit Sergey Anguiano MD 05/17/[address] Shannon mcleod MD 04/19/[address] Shannon mcleod MD 04/05/2015 Office visit Irina PINEDA RN 03/30/2015 Office visit Sergey Anguiano MD 03/22/[address] Shannon mcleod MD 01/13/[address] ROSANNA GRIGGS MD 01/04/2015 Office visit Irina PINEDA RN 12/16/2014 Office visit Sergey Anguiano MD 09/29/2014 Procedures Neishacj lara SHACKLER 08/11/2014 Office visit Sergey Anguiano MD 05/26/2014 Office visit Sergey Anguiano MD 04/05/2014 Office visit Seregy Anguiano MD 09/16/2013 Office visit [place] SHACKLER 08/31/2012 Office visit Sergey Anguiano MD 06/03/2012 Office visit Liane Gamez MD 03/16/2012 Office visit [place] SHACKLER 10/18/2011 Procedures Liane Gamez MD 09/25/2011 Office visit Liane Gamez MD 07/26/2011 Office visit Sergey Anguiano MD 05/27/2011 Office visit Sergey Anguiano MD 11/06/2010 Office visit Sergey Anguiano MD 06/26/2010 Office visit Sergey Anguiano MD 05/28/2010 Office visit Sergey Anguiano MD 09/15/2009 Nurse visit Sergey Anguiano MD 07/18/2009 Office visit Sergey Anguiano MD
--- OUTSIDE RECORDS SUMMARY | 2019-07-07 16:36 | XMS REPORT ---
Author Author Genet Brown Organization [facility] Physicians Gr oup Address [address] [place], [place] [address] Care Team Providers Care Wool Sampler Name Role Phone Shannon Brown PCP Unavailable [...] 4:11 PM URINALYSIS AUTO W/O SCOPE Reviewed 06/11/2015 12:00 AM URINE CULTURE/COLONY COUNT [...] 0.0302 ug/mLAFP Mo M 0.91 hCG Value 77381.0 mIU/mLhCG MoM 1.27 uE3 Value 1.550 ng/mLuE3 MoM 1.63 GITA Value 190.730 pg/mLDIA MoM 1.15 OSBR Risk 1 [place] [address] DSR (Second Trimester) 1IN 5960 DSR (By [...] Group Number Start Date BCBS Bcbs Of [place] [id number] Mo 2011 [place] Medical Assistance Program [place] Medical Sher[place] tance Prog [id number] Tuesday, 2009 [place] Fiction And Nonfiction Writer Prose Prog - RHC [place] Fiction And Nonfiction Writer Prose Prog - RH C [id number] N/A [facility] - [facility] - Community Plan [facility] [id number] N/A History of Encounters Visit Date Visit Type Provider 06/14/[address] Shannon white MD 06/11/2015 Office visit Eimly Heredia APRN 05/29/2015 Office visit Sergey Anguiano [...] Anguiano MD 09/16/2013 Office visit [place] FORMULA MIXER 08/31/2012 Office visit Sergey Anguiano MD 06/03/2012 Office visit Liane Gamez MD 03/16/2012 Office visit [place] FORMULA MIXER 10/18/2011 Procedures Liane Gamez MD 09/25/2011 Office visit Liane Gamez MD 07/26/2011 Office visit Sergey Anguiano MD 05/27/2011 Office visit Sergey Anguiano MD 11/06/2010 Office visit Sergey Anguiano MD 06/26/2010 Office visit Sergey Anguiano MD 05/28/2010 Office visit Sergey Anguiano MD 09/15/2009 Nurse visit Sergey Anguiano MD 07/18/2009 Office visit Sergey Anguiano MD
--- OUTSIDE RECORDS SUMMARY | 2019-07-07 16:37 | XMS REPORT ---
Author Genet Landry Organization [facility] Physicians ou Address [address] [place], [place] [address] Care Team Providers Care Printed Circuit Board Panels Developer Name Role Phone Neisha Khoury PCP Unavailable [...] Left Deltoid 07/18/2009 05/23/2006 999 Tdap 09/14/2015 Oony SKB BOOSTRIX [id number] Intramuscular Right Deltoid 09/14/2015 [...] Number Start Date BCBS Bcbs Of [place] [id number] Tn nd, 2011 [employer] [place] State Plan [employer] [facility] [id number] N/A [place] Medical Assistance Program [place] Medical Sheron tance Prog [id number] Tuesday, 2009 [place] Duplex Trimmer Prog - RHC [place] Duplex Trimmer Prog - RH C [id number] N/A [facility] Comm [id number] N/A [facility] Financial Assistance [facility] ancial Sheron 50 percent Tuesday, April 21, 2015 History of Encounters Visit Date Visit Type Provider 01/06/2017 Office visit Neisha lara POLYMER MATERIALS CONSULTANT 02/28/2016 Office visit Neisha lara POLYMER MATERIALS CONSULTANT 01/29/2016 Hospital Kassandra Marin MD 12/12/[address] Shannon white MD 11/01/[address] Shannon white MD 10/26/2015 Office visit Michelle Sanchez DO 10/19/[address] Shannon white MD 10/10/2015 Office visit Michelle Sanchez DO 09/28/2015 Office visit MICHELLE SANCHEZ DO 09/14/[address] Shannon white MD 09/04/[address] [facility] [address] Shannon white MD [address] Shannon white MD 08/15/2015 Office visit Hali spangler MD 08/11/2015 Voided Neisha lara POLYMER MATERIALS CONSULTANT 07/24/[address] Shannon white MD 07/18/[address] [facility] [address] Shannon white MD 07/17/[address] [facility] [address] Shannon white MD 07/12/[address] Shannon white MD 06/14/[address] Shannon white MD 06/11/2015 Office visit Emily Heredia POLYMER MATERIALS CONSULTANT 05/29/2015 Office visit Sergey Anguiano MD 05/17/[address] Shannon white MD 04/19/[address] Shannon white MD 04/05/2015 Office visit Irina PINEDA RN 03/30/2015 Office visit Sergey Anguiano MD 03/22/[address] Shannon white MD 01/13/[address] ROSANNA GRIGGS MD 01/04/2015 Office visit Irina PIENDA RN 12/16/2014 Office visit Sergey Anguiano MD 09/29/2014 Procedures Neisha lara POLYMER MATERIALS CONSULTANT 08/11/2014 Office visit Sergey Anguiano MD 05/26/2014 Office visit Sergey Anguiano MD 04/05/2014 Office visit Sergey Anguiano MD 09/16/2013 Office visit [place] POLYMER MATERIALS CONSULTANT 08/31/2012 Office visit Sergey Anguiano MD 06/03/2012 Office visit Liane Gamez MD 03/16/2012 Office visit [place] POLYMER MATERIALS CONSULTANT 10/18/2011 Procedures Liane Gamez MD 09/25/2011 Office visit Liane Gamez MD 07/26/2011 Office visit Sergey Anguiano MD 05/27/2011 Office visit Sergey Anguiano MD 11/06/2010 Office visit Sergey Anguiano MD 06/26/2010 Office visit Sergey Anguiano MD 05/28/2010 Office visit Sergey Anguiano MD 09/15/2009 Nurse visit Sergey Anguiano MD 07/18/2009 Office visit Sergey Anguiano MD
--- OUTSIDE RECORDS SUMMARY | 2019-07-07 16:37 | XMS REPORT ---
Author Author Genet Anguiano Organization [facility] Physicians Gr oup Address [address] [place], [place] [address] Care Team Providers Care Systems Software Engineer Name Role Phone Sergey Anguiano PCP Unavailable [...] t by oral route daily Loestrin Fe /20 (28-Day) 1 mg-20 mcg (21)/75 mg (7) [...] 2014 11:14AM Amenorrhea Jan 02 2015 4:14PM Payers Insurance Name Company Name Plan Name Plan Number Policy Number Javier cy Group Number Start Date Bcbs Bcbs Of [place] [id number] Mo , 2011 [place] Medical Assistance Program [place] Medical Sheron tance Prog [id number] Tuesday, 2009 [place] Skill Labor Prog - RHC [place] Skill Labor Prog - RH C [id number] N/A [facility] - [facility] [id number] N/A History of Encounters Visit Date Visit Type Provider 12/16/2014 Office visit Sergey Anguiano MD 09/29/2014 Procedures Neisha lara DIE PRESS OPERATOR 08/11/2014 Office visit Sergey Anguiano MD 05/26/2014 Office visit Sergey Anguiano MD 04/05/2014 Office visit Sergey Anguiano MD 09/16/2013 Office visit [place] DIE PRESS OPERATOR 08/31/2012 Office visit Sergey Anguiano MD 06/03/2012 Office visit Liane Gamez MD 03/16/2012 Office visit [place] DIE PRESS OPERATOR 10/18/2011 Procedures Liane Gamez MD 09/25/2011 Office visit Liane Gamez MD 07/26/2011 Office visit Sergey Anguiano MD 05/27/2011 Office visit Sergey Anguiano MD 11/06/2010 Office visit Sergye Anguiano MD 06/26/2010 Office visit Sergey Anguiano MD 05/28/2010 Office visit Sergey Anguiano MD 09/15/2009 Nurse visit Sergey Anguiano MD 07/18/2009 Office visit Sergey Anguiano MD
--- OUTSIDE RECORDS SUMMARY | 2019-07-07 16:37 | XMS REPORT ---
Author Author Genet Brown Organization [facility] Physicians ou Address [address] [place], [place] [address] Care Team Providers Care Community Liaison Officer Name Role Phone Shannon Brown PCP Unavailable Allergies and Adverse Reactions Name Reaction Notes NO KNOWN DRUG ALLERGIES Plan of Treatment Planned Activity Comments Planned Date Planned Time Plan/Goal URINALYSIS AUTO W/O SCOPE 04/05/2015 12:00 AM RH IG FULL-DOSE IM 2015 12:00 AM GLUCOSE TOLERANCE TEST (GTT) 2015 12:00 AM COMPLETE CBC W/AUTO DIFF WBC 2015 12:00 AM URINE TEST 01/02/2015 12:00 AM [...] 0.0302 ug/mLAFP Mo M 0.91 hCG Value 47903.0 mIU/mLhCG MoM 1.27 uE3 Value 1.550 ng/mLuE3 MoM 1.63 SHINE Value 190.730 pg/mLDIA MoM 1.15 OSBR [place] 1 [place] [address] DSR (Second Trimester) 1IN 5960 DSR (By [...] confirmed, currently in second trimester 2015 10:57AM Payers Insurance Name Company Name Plan Name Plan Number Policy Number Javier cy Group Number Start Date BCBS Bcbs Of [place] [id number] 2011 [place] Medical Assistance Program [place] Medical Sheron tance Prog [id number] Tuesday, 2009 [place] Networking Specialist Prog - RHC [place] Networking Specialist Prog - RH C [id number] N/A [facility] - [facility] Comm [id number] N/A History of Encounters Visit Date Visit Type Provider [address] Shannon white MD 08/15/2015 Office visit Hali spangler MD 08/11/2015 Voided Neisha lara COUNTY ENGINEER 07/24/[address] Shannon white MD 07/18/[address] [facility] [address] Shannon white MD 07/12/[address] Shannon white MD 06/14/[address] Shannon white MD 06/11/2015 Office visit Emily Heredia COUNTY ENGINEER 05/29/2015 Office visit Sergey Anguiano MD 05/17/[address] Shannon white MD 04/19/[address] Shannon white MD 04/05/2015 Office visit Irina PINEDA RN 03/30/2015 Office visit Sergey Anguiano MD 03/22/[address] Shannon white MD 01/13/[address] ROSANNA GRIGGS MD 01/04/2015 Office visit Irina PINEDA RN 12/16/2014 Office visit Sergey Anguiano MD 09/29/2014 Procedures Neisha lara COUNTY ENGINEER 08/11/2014 Office visit Sergey Anguiano MD 05/26/2014 Office visit Sergey Anguiano MD 04/05/2014 Office visit Sergey Anguiano MD 09/16/2013 Office visit [place] COUNTY ENGINEER 08/31/2012 Office visit Sergey Anguiano MD 06/03/2012 Office visit Liane Gamez MD 03/16/2012 Office visit [place] COUNTY ENGINEER 10/18/2011 Procedures Liane Gamez MD 09/25/2011 Office visit Liane Gamez MD 07/26/2011 Office visit Sergey Anguiano MD 05/27/2011 Office visit Sergey Anguiano MD 11/06/2010 Office visit Sergey Anguiano MD 06/26/2010 Office visit Sergey Anguiano MD 05/28/2010 Office visit Sergey Anguiano MD 09/15/2009 Nurse visit Sergey Anguiano MD 07/18/2009 Office visit Sergey Anguiano MD
--- OUTSIDE RECORDS SUMMARY | 2019-07-07 16:37 | XMS REPORT ---
Author Author Genet Courtney Organization [facility] Physicians oup Address [address] [place], [place] [address] Care Team Providers Care Patternmaker Plaster And Plastic Name Role Phone Scotty Courtney PCP Allergies and Adverse Reactions Name Reaction Notes NO KNOWN DRUG ALLERGIES Plan of Treatment Planned Activity Comments Planned Date Planned Time Plan/Goal CHORIONIC GONADOTROPIN ASSAY 03/06/2015 12:00 AM URINE TEST 01/02/2015 12:00 AM [...] 01/13/2015 12:00 AM CHORIONIC GONADOTROPIN TEST Returned 09/25/2011 12:00 AM CHLAMYDIA CULTURE Returned [...] Non Reactive Rubella Antibodies, IgG 2.34 Index History Of Immunizations Name Date Admin [...] Number Start Date Bcbs Bcbs Of [place] [id number] Mo nd, 2011 [place] Medical Assistance Program [place] Medical Sheron tance Prog [id number] Tuesday, 2009 [facility] Asst Prog - RHC [facility] Asst Prog - RH C [id number] N/A [facility] ealthCare [facility] Comm [id number] N/A History of Encounters Visit Date Visit Type Provider 01/13/[address] ROSANNA GRIGGS MD 01/04/2015 Office visit Irina PINEDA RN 12/16/2014 Office visit Sergey Anguiano MD 09/29/2014 Procedures Neisha lara AERONAUTICAL ENGINEERING OFFICER 08/11/2014 Office visit Sergey Anguiano MD 05/26/2014 Office visit Sergey Anguiano MD 04/05/2014 Office visit Sergey Anguiano MD 09/16/2013 Office visit [place] AERONAUTICAL ENGINEERING OFFICER 08/31/2012 Office visit Sergey Anguiano MD 06/03/2012 Office visit Liane Gamez MD 03/16/2012 Office visit [place] AERONAUTICAL ENGINEERING OFFICER 10/18/2011 Procedures Liane Gamez MD 09/25/2011 Office visit Liane Gamez MD 07/26/2011 Office visit Seregy Anguiano MD 05/27/2011 Office visit Sergey Anguiano MD 11/06/2010 Office visit Sergey Anguiano MD 06/26/2010 Office visit Sergey Anguiano MD 05/28/2010 Office visit Sergey Anguiano MD 09/15/2009 Nurse visit Sergey Anguiano MD 07/18/2009 Office visit Sergey Anguiano MD
--- OUTSIDE RECORDS SUMMARY | 2019-07-07 16:38 | XMS REPORT ---
Author Author Genet Brown Organization [facility] Physicians ou Address [address] [place], [place] [address] Care Team Providers Care Glue Jointer Operator Name Role Phone Shannon Brown PCP [...] 0.0302 ug/mLAFP Mo M 0.91 hCG Value 03551.0 mIU/mLhCG MoM 1.27 uE3 Value 1.550 ng/mLuE3 MoM 1.63 SHINE Value 190.730 pg/mLDIA MoM 1.15 OSBR Risk 1 [place] [address] DSR (Second Trimester) 1IN 5960 DSR (By [...] Start Date BCBS Bcbs Of [place] [id number] 2011 [place] Medical [place] Medical Sher[place] tance Prog [id number] Tuesday, 2009 [place] Investigator Claims Prog - RHC [place] Investigator Claims Prog - RH C [id number] N/A [facility] Comm [id number] N/A History of Encounters Visit Date Visit Type Provider [address] Shannon white MD 08/15/2015 Office visit Hali spangler MD 08/11/2015 Voided Neisha lara MARKETING EFFECTIVENESS MANAGER 07/24/[address] Shannon white MD 07/18/[address] [facility] [address] Shannon white MD 07/12/[address] Shannon white MD 06/14/[address] Shannon white MD 06/11/2015 Office visit Emily Heredia MARKETING EFFECTIVENESS MANAGER 05/29/2015 Office visit Sergey Anguiano MD 05/17/[address] Shannon white MD 04/19/[address] Shannon white MD 04/05/2015 Office visit Irina PINEDA RN 03/30/2015 Office visit Sergey Anguiano MD 03/22/[address] Shannon white MD 01/13/[address] ROSANNA GRIGGS MD 01/04/2015 Office visit Irina PINEDA RN 12/16/2014 Office visit Sergey Anguiano MD 09/29/2014 Procedures Neisha lara MARKETING EFFECTIVENESS MANAGER 08/11/2014 Office visit Sergey Anguiano MD 05/26/2014 Office visit Sergey Anguiano MD 04/05/2014 Office visit Sergey Anguiano MD 09/16/2013 Office visit [place] MARKETING EFFECTIVENESS MANAGER 08/31/2012 Office visit Sergey Anguiano MD 06/03/2012 Office visit Liane Gamez MD 03/16/2012 Office visit [place] MARKETING EFFECTIVENESS MANAGER 10/18/2011 Procedures Liane Gamez MD 09/25/2011 Office visit Liane Gamez MD 07/26/2011 Office visit Sergey Anguiano MD 05/27/2011 Office visit Sergey Anguiano MD 11/06/2010 Office visit Sergey Anguiano MD 06/26/2010 Office visit Sergey Anguiano MD 05/28/2010 Office visit Sergey Anguiano MD 09/15/2009 Nurse visit Sergey Anguiano MD 07/18/2009 Office visit Sergey Anguiano MD
--- OUTSIDE RECORDS SUMMARY | 2019-07-07 16:38 | XMS REPORT ---
Author Author Genet Anguiano Organization [facility] Physicians oup Address [address] [place], [place] [address] Care Team Providers Care Archaeology Professor Name Role Phone Sergey Anguiano PCP Unavailable Allergies and Adverse Reactions Name Reaction Notes NO KNOWN DRUG ALLERGIES Plan of Treatment Planned Activity Comments Planned Date Planned Time Plan/Goal HIV-1ANTIBODY 03/22/2015 12:00 AM URINALYSIS AUTO W/SCOPE 03/22/2015 12:00 AM URINE TEST 01/02/2015 12:00 [...] HC BMI BSA BMI Percentile O2 Sat(%) 03/30/2015 1:45:00 PM 112 mmHg 70 mmHg [...] plaques of ) Mar 30 2015 1:51PM Payers Insurance Name Company Name Plan Name Plan Number Policy Number Javier cy Group Number Start Date Bcbs Bcbs Of [place] [id number] Mo , 2011 [place] Medical Assistance Program [place] Medical Sheron tance Prog [id number] Tuesday, 2009 [place] Ophthalmic Technologist Prog - RHC [place] Ophthalmic Technologist Prog - RH C [id number] N/A [facility] - [facility] - Community Plan [facility] Comm [id number] N/A History of Encounters Visit Date Visit Type Provider 03/30/2015 Office visit Sergey Anguiano MD 03/22/[address] Shannon white MD 01/13/[address] ROSANNA GRIGGS MD 01/04/2015 Office visit Irina PINEDA RN 12/16/2014 Office visit Sergey Anguiano MD 09/29/2014 Procedures Neisha lara CHILLER HAND 08/11/2014 Office visit Sergey Anguiano MD 05/26/2014 Office visit Sergey Anguiano MD 04/05/2014 Office visit Sergey Anguiano MD 09/16/2013 Office visit [place] CHILLER HAND 08/31/2012 Office visit Sergey Anguiano MD 06/03/2012 Office visit Liane Gamez MD 03/16/2012 Office visit [place] CHILLER HAND 10/18/2011 Procedures Liane Gamez MD 09/25/2011 Office visit Liane Gamez MD 07/26/2011 Office visit Sergey Anguiano MD 05/27/2011 Office visit Sergey Anguiano MD 11/06/2010 Office visit Sergey Anguiano MD 06/26/2010 Office visit Sergey Anguiano MD 05/28/2010 Office visit Sergey Anguiano MD 09/15/2009 Nurse visit Sergey Anguiano MD 07/18/2009 Office visit Sergey Anguiano MD
--- OUTSIDE RECORDS SUMMARY | 2019-07-07 16:38 | XMS REPORT ---
Author Author Genet Brown Organization [facility] Address [address] [place], [place] [address] Care Team Providers Care Plasterer Spot Name Role Phone Shannon Brown PCP Unavailable [...] in first trimester Jan 27 2017 3:58PM Payers Insurance Name Company Name Plan Name Plan Number Policy Number Javier cy Group Number Start Date [facility] [place] [id number] Mo ndNovember 18, 2011 [employer] - RHC - [place] State Plan Amerigroup - RHC [place] State Plan [id number] N/A [place] Medical [place] t[place] Prog [id number] Tuesday, 2009 [place] Computer Forensic Examiner Prog - RHC [place] Computer Forensic Examiner Prog - RH C [id number] N/A [facility] - RHC - [facility] ealthCare RHC Comm [id number] N/A [employer] Financial Assistance [employer] Fin ancial Sheron 50 percent Tuesday, April 21, 2015 [employer]igroup [place] State Plan [facility] State [facility] [id number] N/A History of Encounters Visit Date Visit Type Provider 01/27/[address] Shannon white MD 01/06/2017 Office visit Neisha lara RELIGION INSTRUCTOR 02/28/2016 Office visit Neisha lara RELIGION INSTRUCTOR 01/29/2016 Hospital Kassandra Marin MD 12/12/[address] Shannon white MD 11/01/2015 [facility] Dr. Shannon white MD 10/26/2015 Office visit Michelle Sanchez DO 10/19/[address] Shannon white MD 10/10/2015 Office visit Michelle Sanchez DO 09/28/2015 Office visit MICHELLE SANCHEZ DO 09/14/[address] Shannon white MD 09/04/2015 [facility] [address] Shannon white MD [address] Shannon white MD 08/15/2015 Office visit Hali spangler MD 08/11/2015 Voided Neisha lara RELIGION INSTRUCTOR 07/24/[address] Shannon white MD 07/18/2015 [facility] [address] Shannon white MD 07/17/[address] [facility] [address] Shannon white MD 07/12/[address] Shannon white MD 06/14/[address] Shannon white MD 06/11/2015 Office visit Emily Heredia RELIGION INSTRUCTOR 05/29/2015 Office visit Sergey Anguiano MD 05/17/[address] Shannon white MD 04/19/[address] Shannon white MD 04/05/2015 Office visit Irina PINEDA RN 03/30/2015 Office visit Sergey Anguiano MD 03/22/[address] Shannon white MD 01/13/[address] ROSANNA GRIGGS MD 01/04/2015 Office visit Irina PINEDA RN 12/16/2014 Office visit Sergey Anguiano MD 09/29/2014 Procedures Neisha lara RELIGION INSTRUCTOR 08/11/2014 Office visit Sergey Anguiano MD 05/26/2014 Office visit Sergey Anguiano MD 04/05/2014 Office visit Sergey Anguiano MD 09/16/2013 Office visit [place] RELIGION INSTRUCTOR 08/31/2012 Office visit Sergey Anguiano MD 06/03/2012 Office visit Liane Gamez MD 03/16/2012 Office visit [place] RELIGION INSTRUCTOR 10/18/2011 Procedures Liane Gamez MD 09/25/2011 Office visit Liane Gamez MD 07/26/2011 Office visit Sergey Anguiano MD 05/27/2011 Office visit Sergey Anguiano MD 11/06/2010 Office visit Sergey Anguiano MD 06/26/2010 Office visit Sergey Anguiano MD 05/28/2010 Office visit Sergey Anguiano MD 09/15/2009 Nurse visit Sergey Anguiano MD 07/18/2009 Office visit Sergey Anguiano MD
--- OUTSIDE RECORDS SUMMARY | 2019-07-07 16:39 | XMS REPORT ---
Author Author Genet Brown Organization [facility] Address [address] [place], [place] [address] Care Team Providers Care Peoplesoft Hcm Consultant Name Role Phone Shannon Brown PCP Unavailable Allergies and Adverse Reactions Name Reaction Notes NO KNOWN DRUG ALLERGIES Plan of Treatment Planned Activity Comments Planned Date Planned Time Plan/Goal CYTOPATH C/V THIN LAYER 03/22/2015 12:00 AM N.GONORRHOEAE DNA AMP PROB 03/22/2015 12:00 AM [...] Group Number Start Date Bcbs Bcbs Of [place] [id number] Mo 2011 [place] Medical Assistance Program [place] Medical Sher[place] tance Prog [id number] Tuesday, 2009 [place] Physical Therapist Assistant Prog - RHC [place] Physical Therapist Assistant Prog - RH C [id number] N/A [facility] - C - [facility]Department of Veterans Affairs [facility] RHC Comm [id number] N/A History of Encounters Visit Date Visit Type Provider 03/22/[address] Shannon white MD 01/13/[address] ROSANNA GRIGGS MD 01/04/2015 Office visit Irina PINEDA RN 12/16/2014 Office visit Sergey Anguiano MD 09/29/2014 Procedures Neisha lara PAYROLL ASSISTANT 08/11/2014 Office visit Sergey Anguiano MD 05/26/2014 Office visit Sergey Anguiano MD 04/05/2014 Office visit Sergey Anguiano MD 09/16/2013 Office visit [place] APRN 08/31/2012 Office visit Sergey Anguiano MD 06/03/2012 Office visit Liane Gamez MD 03/16/2012 Office visit [place] PAYROLL ASSISTANT 10/18/2011 Procedures Liane Gamez MD 09/25/2011 Office visit Liane Gamez MD 07/26/2011 Office visit Sergey Anguiano MD 05/27/2011 Office visit Sergey Anguiano MD 11/06/2010 Office visit Sergey Anguiano MD 06/26/2010 Office visit Sergey Anguiano MD 05/28/2010 Office visit Sergey Anguiano MD 09/15/2009 Nurse visit Sergey Anguiano MD 07/18/2009 Office visit Sergey Anguiano MD
--- OUTSIDE RECORDS SUMMARY | 2019-07-07 16:39 | XMS REPORT ---
Author Author Genet Brown Organization [facility] Address [address] [place], [place] [address] Care Team Providers Care Data Entry Clerk Name Role Phone Shannon Brown PCP Unavailable [...] Group Number Start Date Bcbs Bcbs Of [place] [id number] Mo 2011 [place] Medical Assistance Program [place] Medical Sher[place] tance Prog [id number] Tuesday, 2009 [place] Naval Aircrewman Mechanical Prog - RHC [place] Naval Aircrewman Mechanical Prog - RH C [id number] N/A [facility] - C - Community Plan [facility] RHC Comm [id number] N/A History of Encounters Visit Date Visit Type Provider 03/22/[address] Shannon white MD 01/13/[address] ROSANNA GRIGGS MD 01/04/2015 Office visit Irina PINEDA RN 12/16/2014 Office visit Sergey Anguiano MD 09/29/2014 Procedures Neisha lara MAKE UP WORKER 08/11/2014 Office visit Sergey Anguiano MD 05/26/2014 Office visit Sergey Anguiano MD 04/05/2014 Office visit Sergey Anguiano MD 09/16/2013 Office visit [place] MAKE UP WORKER 08/31/2012 Office visit Sergey Anguiano MD 06/03/2012 Office visit Liane Gamez MD 03/16/2012 Office visit [place] MAKE UP WORKER 10/18/2011 Procedures Liane Gamez MD 09/25/2011 Office visit Liane Gamez MD 07/26/2011 Office visit Sergey Anguiano MD 05/27/2011 Office visit Sergey Anguiano MD 11/06/2010 Office visit Sergey Anguiano MD 06/26/2010 Office visit Sergey Anguiano MD 05/28/2010 Office visit Sergey Anguiano MD 09/15/2009 Nurse visit Sergey Anguiano MD 07/18/2009 Office visit Sergey Anguiano MD
--- OUTSIDE RECORDS SUMMARY | 2019-07-07 16:39 | XMS REPORT ---
Author Author Genet Brown Organization [facility] ou Address [address] [place], [place] [address] Care Team Providers Care Invasive Physician Name Role Phone Shannon Brown PCP Sergey [...] Left Deltoid 07/18/2009 05/23/2006 999 Tdap 09/14/2015 GlaxSelero SKB BOOSTRIX [id number] Intramuscular Right Deltoid 09/14/2015 06/14/2014 115 Influenza 04/08/2017 GlaxSelero SKB Fluarix [id number] Intramuscul ar Right Deltoid [...] Number Start Date BCBS Bcbs Of [place] [id number] [place], 2011 [facility] - [facility] [place] State Plan [facility] - [facility] State [facility] [id number] N/A [place] Medical Assistance Program [place] Medical Sher[place] tance Prog [id number] Tuesday, 2009 [place] Hand Packer/Packager Prog - RHC [place] Hand Packer/Packager Prog - RH C [id number] N/A [facility] Association [facility] Comm [id number] N/A [facility] Financial Assistance [facility] Fin ancial Sheron 50 percent Tuesday, April 21, 2015 [employer] [place] State Plan [facility] State Plan [id number] N/A History of Encounters Visit Date Visit Type Provider 04/08/[address] Shannon white MD 03/11/[address] Shannon white MD 02/24/[address] Shannon white MD 01/27/[address] Shannon white MD 01/06/2017 Office visit Neisha lara PHOTOGRAMMETRIC SURVEYOR 02/28/2016 Office visit Neisha lara PHOTOGRAMMETRIC SURVEYOR 01/29/2016 Hospital Kassandra Marin MD 12/12/[address] Shannon white MD 11/01/[address] [facility] [address] Shannon white MD 10/26/2015 Office visit Michelle Sanchez DO 10/19/[address] Shannon white MD 10/10/2015 Office visit Michelle Sanchez DO 09/28/2015 Office visit MICHELLE SANCHEZ DO 09/14/[address] Shannon white MD 09/04/[address] Shannon white MD [address] Shannon white MD 08/15/2015 Office visit Hali spangler MD 08/11/2015 Voided Neisha lara PHOTOGRAMMETRIC SURVEYOR 07/24/[address] Shannon white MD 07/18/[address] [facility] [address] Shannon white MD 07/17/[address] [facility] [address] Shannon white MD 07/12/[address] Shannon white MD 06/14/[address] Shannon white MD 06/11/2015 Office visit Emily Heredia PHOTOGRAMMETRIC SURVEYOR 05/29/2015 Office visit Sergey Anguiano MD 05/17/[address] Shannon white MD 04/19/[address] Shannon white MD 04/05/2015 Office visit Irina PINEDA RN 03/30/2015 Office visit Sergey Anguiano MD 03/22/[address] Shannon white MD 01/13/[address] ROSANNA GRIGGS MD 01/04/2015 Office visit Irina PINEDA RN 12/16/2014 Office visit Sergey Anguiano MD 09/29/2014 Procedures Neisha lara PHOTOGRAMMETRIC SURVEYOR 08/11/2014 Office visit Sergey Anguiano MD 05/26/2014 [...]
--- OUTSIDE RECORDS SUMMARY | 2019-07-07 16:40 | XMS REPORT ---
Author Author Genet Brown Organization [facility] ou Address [address] [place], [place] [phone] Care Team Providers Care Trimmer Hand Name Role Phone Shannon Brown PCP Unavailable [...] 0.0302 ug/mLAFP Mo M 0.91 hCG Value 03404.0 mIU/mLhCG MoM 1.27 uE3 Value 1.550 ng/mLuE3 MoM 1.63 SHINE Value 190.730 pg/mLDIA MoM 1.15 OSBR [place] 1 [place] [address] DSR (Second Trimester) 1IN 5960 DSR (By [...] Left Deltoid 07/18/2009 05/23/2006 999 Tdap 09/14/2015 GlaxSignalSet SKB BOOSTRIX [id number] Intramuscular Right Deltoid 09/14/2015 [...] cy Group Number Start Date BCBS Bcbs [facility] [id number] Mo nday, 2011 Amerigroup [place] Plan Amerigroup [place] State Plan [id number] N/A [place] Medical Assistance Program [place] Medical Sher[place] tance Prog [id number] Tuesday, 2009 [place] Workers' Compensation Claims Examiner Prog - RHC [place] Workers' Compensation Claims Examiner Prog - RH C [id number] N/A [facility] - RHC - [facility] ealthCare RHC Comm [id number] N/A [employer] Financial Assistance [employer] Fin ancial Sheron 50 percent Tuesday, April 21, 2015 History of Encounters Visit Date Visit Type Provider 11/01/2015 [facility] Dr. Shannon white MD 10/26/2015 Office visit Michelle Rebolledo DO 10/19/[address] Shannon white MD 10/10/2015 Office visit Michelle Rebolledo DO 09/28/2015 Office visit MICHELLE REBOLLEDO DO 09/14/[address] Shannon white MD 09/04/2015 [facility] Dr[facility] Shannon white MD [address] Shannon white MD 08/15/2015 Office visit Hali spangler MD 08/11/2015 Voided Neisha lara REFERRAL SPECIALIST 07/24/[address] Shannon white MD 07/18/2015 [facility] Dr[facility] Shannon white MD 07/12/2015 Office visit [...] MD 09/29/2014 Procedures Neisha Mullinsjose l lara REFERRAL SPECIALIST 08/11/2014 Office visit Sergey Anguiano MD 05/26/2014 Office visit Sergey Anguiano MD 04/05/2014 Office visit Sergey Anguiano MD 09/16/2013 Office visit [place] REFERRAL SPECIALIST 08/31/2012 Office visit Sergey Anguiano MD 06/03/2012 Office visit Liane Gamez MD 03/16/2012 Office visit [place] REFERRAL SPECIALIST 10/18/2011 Procedures Liane Gamez MD 09/25/2011 Office visit Liane Gamez MD 07/26/2011 Office visit Sergey Anguiano MD 05/27/2011 Office visit Sergey Anguiano MD 11/06/2010 Office visit Sergey Anguiano MD 06/26/2010 Office visit Sergey Anguiano MD 05/28/2010 Office visit Sergey Anguiano MD 09/15/2009 Nurse visit Sergey Anguiano MD 07/18/2009 Office visit Sergey Anguiano MD
--- OUTSIDE RECORDS SUMMARY | 2019-07-07 16:40 | XMS REPORT ---
Author Genet Cornelius Organization [facility]icians ou Address [address] [place], [place] [address] Care Team Providers Care Automotive Parts Interpreter Name Role Phone Michelle Rebolledo PCP Unavailable [...] 0.0302 ug/mLAFP Mo M 0.91 hCG Value 57092.0 mIU/mLhCG MoM 1.27 uE3 Value 1.550 ng/mLuE3 MoM 1.63 SHINE Value 190.730 pg/mLDIA MoM 1.15 OSBR [place] 1 [place] [address] DSR (Second Trimester) 1IN 5960 DSR (By [...] cy Group Number Start Date BCBS Bcbs [facility] [id number] Mo 2011 [employer] Financial Assistance [facility] Fin ancial Sheron 50 percent Tuesday, April 21, 2015 [place] Medical Assistance Program [place] Medical Sher[place] tanmagda Prog [id number] Tuesday, April 21, 2009 [place] Metal Rolling Mill Operator Prog - RHC [place] Metal Rolling Mill Operator Prog - RH C [id number] N/A [facility] - [facility] eaState mental health facility Comm [id number] N/A History of Encounters Visit Date Visit Type Provider 10/10/2015 Office visit Michelledavid Rebolledo DO 09/28/2015 Office visit MICHELLE WOOD DO 09/14/[address] Shannon white MD 09/04/[address] Shannon white MD [address] Shannon white MD 08/15/2015 Office visit Hali spangler MD 08/11/2015 Voided Neisha lara WEB APPLICATIONS PROGRAMMER 07/24/[address] Shannon white MD 07/18/[address] [facility] [address] Shannon white MD 07/12/[address] Shannon white MD 06/14/[address] Shannon white MD 06/11/2015 Office visit Emily Heredia WEB APPLICATIONS PROGRAMMER 05/29/2015 Office visit Sergey Anguiano MD 05/17/[address] Shannon white MD 04/19/[address] Shannon white MD 04/05/2015 Office visit Irina PINEDA RN 03/30/2015 Office visit Sergey Anguiano MD 03/22/[address] Shannon white MD 01/13/[address] ROSANNA GRIGGS MD 01/04/2015 Office visit Irina PINEDA RN 12/16/2014 Office visit Sergey Anguiano MD 09/29/2014 Procedures Neisha lara WEB APPLICATIONS PROGRAMMER 08/11/2014 Office visit Sergey Anguiano MD 05/26/2014 Office visit Sergey Anguiano MD 04/05/2014 Office visit Sergey Anguiano MD 09/16/2013 Office visit [place] WEB APPLICATIONS PROGRAMMER 08/31/2012 Office visit Sergey Anguiano MD 06/03/2012 Office visit Liane Gamez MD 03/16/2012 Office visit [place] WEB APPLICATIONS PROGRAMMER 10/18/2011 Procedures Liane Gamez MD 09/25/2011 Office visit Liane Gamez MD 07/26/2011 Office visit Sergey Anguiano MD 05/27/2011 Office visit Sergey Anguiano MD 11/06/2010 Office visit Sergey Anguiano MD 06/26/2010 Office visit Sergey Anguiano MD 05/28/2010 Office visit Sergey Anguiano MD 09/15/2009 Nurse visit Sergey Anguiano MD 07/18/2009 Office visit Sergey Anguiano MD
--- OUTSIDE RECORDS SUMMARY | 2019-07-07 16:40 | XMS REPORT ---
Author Author Genet Escobar Organization [facility] Address [address] [place], [place] [address] Care Team Providers Care Progress Developer Name Role Phone Irina Escobar PCP Unavailable [...] HC BMI BSA BMI Percentile O2 Sat(%) 01/04/2015 2:20:00 PM 118 mmHg 60 mmHg [...] Javier cy Group Number Start Date [facility]bs [facility] [id number] Mo , 2011 [place] Medical Assistance [facility] Sheronlindy [place] [id number] Tuesday, 2009 [place] 2 Year Olds Preschool Teacher Prog - RHC [place] 2 Year Olds Preschool Teacher Prog - RH C [id number] N/A [facility] - C - [facility] ealtMemorial HealthcareC Comm [id number] N/A History of Encounters Visit Date Visit Type Provider 01/04/2015 Office visit Irina PINEDA RN 12/16/2014 Office visit Sergey Anguiano MD 09/29/2014 Procedures Neisha lara DIRECTOR DIGITAL MARKETING 08/11/2014 Office visit Sergey Anguiano MD 05/26/2014 Office visit Sergey Anguiano MD 04/05/2014 Office visit Sergey Anguiano MD 09/16/2013 Office visit [place] DIRECTOR DIGITAL MARKETING 08/31/2012 Office visit Sergey Anguiano MD 06/03/2012 Office visit Liane Gamez MD 03/16/2012 Office visit [place] DIRECTOR DIGITAL MARKETING 10/18/2011 Procedures Liane Gamez MD 09/25/2011 Office visit Liane Gamez MD 07/26/2011 Office visit Sergey Anguiano MD 05/27/2011 Office visit Sergey Anguiano MD 11/06/2010 Office visit Sergey Anguiano MD 06/26/2010 Office visit Sergey Anguiano MD 05/28/2010 Office visit Sergey Anguiano MD 09/15/2009 Nurse visit Sergey Anguiano MD 07/18/2009 Office visit Sergey Anguiano MD
--- OUTSIDE RECORDS SUMMARY | 2019-07-07 16:41 | XMS REPORT ---
Author Author Genet Brown Organization [facility] Address [address] [place], [place] [address] Care Team Providers Care Machinist Automotive Name Role Phone Shannon Brown PCP Unavailable [...] 0.0302 ug/mLAFP Mo M 0.91 hCG Value 42047.0 mIU/mLhCG MoM 1.27 uE3 Value 1.550 ng/mLuE3 MoM 1.63 GITA Value 190.730 pg/mLDIA MoM 1.15 OSBR [place] 1 [place] [address] DSR (Second Trimester) 1IN 5960 DSR (By [...] Number Start Date BCBS Bcbs Of [place] [id number] Mo 2011 [place] Medical Assistance Program [place] Medical Sheron tance Prog [id number] Tuesday, 2009 [place] Heel Sander Prog - RHC [place] Heel Sander Prog - RH C [id number] N/A [facility] - RHC - Community Plan [facility] RHC Comm [id number] N/A History of Encounters Visit Date Visit [...] Sergey Anguiano MD 09/29/2014 Procedures Neisha lara HOME SALES SERVICE PROFESSIONAL 08/11/2014 Office visit Sergey Anguiano MD 05/26/2014 Office visit Sergey Anguiano MD 04/05/2014 Office visit Sergey Anguiano MD 09/16/2013 Office visit [place] APRN 08/31/2012 Office visit eSrgey Anguiano MD 06/03/2012 Office visit Liane Gamez MD 03/16/2012 Office visit [place] HOME SALES SERVICE PROFESSIONAL 10/18/2011 Procedures Liane Gamez MD 09/25/2011 Office visit Liane Gamez MD 07/26/2011 Office visit Sergey Anguiano MD 05/27/2011 Office visit Sergey Anguiano MD 11/06/2010 Office visit Sergey Anguiano MD 06/26/2010 Office visit Sergey Anguiano MD 05/28/2010 Office visit Sergey Anguiano MD 09/15/2009 Nurse visit Sergey Anguiano MD 07/18/2009 Office visit Sergey Anguiano MD
--- OUTSIDE RECORDS SUMMARY | 2019-07-07 16:41 | XMS REPORT ---
Author Author Genet Brown Organization [facility] Phys[facility] o[facility] Address [address] [place], [place] [address] Care Team Providers Care Tile Mechanic Name Role Phone Shannon Brown PCP Unavailable [...] Javier cy Group Number Start Date BCBS [facility] [id number] Mo ndNovember 18, 2011 [employer] - RHC - [place] State Plan [employer] - RHC [place] State Plan [id number] N/A [place] Medical Assistance Program [place] Medical Sheron tance Prog [id number] Tuesday, 2009 [place] Adult Caregiver Prog - RHC [place] Adult Caregiver Prog - RH C [id number] N/A [facility] - RHC - [facility] ealthCare RHC Comm [id number] N/A [employer] Financial Assistance [employer] Fin ancial Sheron 50 percent Tuesday, April 21, 2015 [employer] [place] State Plan [facility] State Plan [id number] N/A History of Encounters Visit Date Visit Type Provider 01/27/[address] Shannon white MD 01/06/2017 Office visit Neisha lara SECURITY INCIDENT RESPONSE SPECIALIST 02/28/2016 Office visit Neisha lara SECURITY INCIDENT RESPONSE SPECIALIST 01/29/2016 Hospital Kassandra Marin MD 12/12/[address] Shannon white MD 11/01/[address] [facility] [address] Shannon white MD 10/26/2015 Office visit Michelle Sanchez DO 10/19/[address] Shannon white MD 10/10/2015 Office visit Michelle Sanchez DO 09/28/2015 Office visit MICHELLE SANCHEZ DO 09/14/[address] Shannon white MD 09/04/[address] [facility] [address] Shannon white MD [address] Shannon white MD 08/15/2015 Office visit Hali spangler MD 08/11/2015 Voided Neisha lara SECURITY INCIDENT RESPONSE SPECIALIST 07/24/[address] Shannon white MD 07/18/[address] [facility] [address] Shannon white MD 07/17/[address] [facility] [address] Shannon white MD 07/12/[address] Shannon white MD 06/14/[address] Shannon white MD 06/11/2015 Office visit Emily Heredia SECURITY INCIDENT RESPONSE SPECIALIST 05/29/2015 Office visit Sergey Anguiano MD 05/17/[address] Shannon white MD 04/19/[address] Shannon white MD 04/05/2015 Office visit Irina PINEDA RN 03/30/2015 Office visit Sergey Anguiano MD 03/22/[address] Shannon white MD 01/13/[address] ROSANNA GRIGGS MD 01/04/2015 Office visit Irina PINEDA RN 12/16/2014 Office visit Sergey Anguiano MD 09/29/2014 Procedures Neisha lara SECURITY INCIDENT RESPONSE SPECIALIST 08/11/2014 Office visit Sergey Anguiano MD 05/26/2014 Office visit Sergey Anguiano MD 04/05/2014 Office visit Sergey Anguiano MD 09/16/2013 Office visit [place] SECURITY INCIDENT RESPONSE SPECIALIST 08/31/2012 Office visit Sergey Anguiano MD 06/03/2012 Office visit Liane Gamez MD 03/16/2012 Office visit [place] SECURITY INCIDENT RESPONSE SPECIALIST 10/18/2011 Procedures Liane Gamez MD 09/25/2011 Office visit Liane Gamez MD 07/26/2011 Office visit Sergey Anguiano MD 05/27/2011 Office visit Sergey Anguiano MD 11/06/2010 Office visit Sergey Anguiano MD 06/26/2010 Office visit Sergey Anguiano MD 05/28/2010 Office visit Sergey Anguiano MD 09/15/2009 Nurse visit Sergey Anguiano MD 07/18/2009 Office visit Sergey Anguiano MD
--- OUTSIDE RECORDS SUMMARY | 2019-07-07 16:41 | XMS REPORT ---
Author Genet Landry Organization [facility] Physicians ou Address [address] [place], [place] [address] Care Team Providers Care Signal Apprentice Name Role Phone Neisha Khoury PCP Unavailable Sergey Anguiano PreferredProvider Unavailable Allergies and Adverse Reactions Name Reaction Notes NO KNOWN DRUG ALLERGIES Plan of Treatment Planned Activity Comments Planned Date Planned Time Plan/Goal Quantitative Beta HCG 04/18/2016 12:00 AM test, urine 01/02/2015 12:00 AM Medications Active Name Start Date Estimated Completion Date SIG Co mments Prozac oral Name Start Date Expiration Date SIG [...] Zoloft oral 02/28/2016 Take one tablet daily Problem List Description Status Onset ADHD Active Bipolar Disorder Active Vital Signs Date Time BP-Sys(mm[Hg] BP-Shine(mm[Hg]) HR(bpm) RR(rpm) Temp WT HT HC BMI BSA BMI Percentile O2 Sat(%) 02/28/2016 1:43:00 PM 125 mmHg 72 mmHg 97 bpm 99 F 214 lbs 63 in 37.91 kg/m2 2.08 m2 98 % 12/12/2015 11:43:00 AM 105 mmHg 72 mmHg 90 bpm 98 F 200.5 lbs 63 in 35.5166 kg/m 2.0106 m 97.4 % 08/15/2015 6:02:00 PM 97 bpm [...] Returned 06/11/2015 12:00 AM URINE CULTURE/COLONY COUNT Reviewed [...] 10/10/2015 12:00 AM CULTURE SCREEN ONLY Reviewed 09/25/2011 12:00 AM CHLAMYDIA CULTURE Reviewed [...] HIV-1/2 AB NON-REACTIV E 09/27/2011 11:50 AM TEST NEGATIVE HIV AG/AB [...] 0.15 #BASO 0.07 MANUAL DIFF NOT IND 02/18/2014 10:00 AM WBC 5.4 RBC 4.64 HGB 13.60 g /dLHCT 39.70 %MCV 86.0 fLMCH 29.30 pgMCHC 34.30 g/dLRDW SD 39 RDW CV 12.50 %MPV 8.90 fLPLT 291 NRBC# 0.00 NRBC% 0.0 08/03/2014 1:31 PM BETA HCG QUANT <1 [...] Antibodies, IgG 1.99 Index 05/29/2015 3:50 PM Results Report Test Results: *Screen Negative* Gest. Age on CollectionDate 16.6 Gestat. Age Based On Ultrasound M[age] Age At VALERIO 19.2 Race Weight 173 Insulin Dep Diabetes No Multiple Gestation No AFP Value 0.0302 ug/mLAFP MoM 0.91 hCG Value 32525.0 mIU/mLhCG MoM 1.27 uE3 Value 1.550 ng/mLuE3 MoM 1.63 SHINE Value 190.730 pg/mLDIA MoM 1.15 OSBR Risk 1 [place] [address] DSR (Second Trimester) 1IN 5960 DSR (By [...] TRACE- INTACT NITRITE NEGATIVE LEUK SCREEN NEGATIVE MICRO INDICATED? SEE BELOW WBC/HPF 5-10 RBC/HPF 0-5 CASTS/LPF NEGATIVE /LPFCRYSTALS TRACE AMORPH MUCOUS THRDS FEW BACTERIA FEW EPITH CELLS FEW SQUAMOUS /HPFTRICHOMONAS NEGATIVE YEAST NEGATIVE CULT SET UP? YES Cannabinoids (THC) NEGATIVE ng/mLPhencyclidine (PCP) NEGATIVE ug/mLCocaine NEGATIVE Methamphetamine NEGATIVE ug/mLOpiates NEGATIVE ng/mLAmphetamine NEGATIVE Benzodiazepines NEGATIVE ng/mLTricyclic Antidepres NEGATIVE Methadone NEGATIVE ng/mLBarbiturates NEGATIVE ng/mLOxycodone NEGATIVE Propoxyphene (PPX) NEGATIVE ng/mL 07/16/2015 8:10 PM GLUCOSE 91.0 mg/dLSODIUM 134 .0 mmol/LPOTASSIUM 3.70 mmol/LCHLORIDE 104.0 mmol/LCO2 20.0 mmol/LBUN 9.0 mg/dLCREATININE 0.60 mg/dLSGOT/AST 21.0 IU/LSGPT/ALT 22.0 IU/LALK PHOS 60.0 IU/LTOTAL PROTEIN 6.40 g/dLALBUMIN 3.50 g/dLTOTAL BILI 0.40 mg/dLCALCIUM 8.70 mg/dLAGE 19 GFR NonAA 130 GFR AA 158 eGFR >60 mL/min/1.73meGFR AA* >60 WBC 14.8 RBC 3.68 HGB 11.20 g/dLHCT 32.80 %MCV 89.0 fLMCH 30.40 pgMCHC 34.10 g/dLRDW SD 41 RDW CV 12.40 %MPV 8.30 fLPLT 279 PLTS PLT SIZE VARY NRBC# 0.00 NRBC% 0.0 %NEUT 84.70 %%LYMP 6.90 %%MONO 7.50 %%EOS 0.10 %%BASO 0.20 %#NEUT 12.54 #LYMP 1.02 #MONO 1.11 #EOS 0.02 #BASO 0.03 MANUAL DIFF SEE BELOW SEGS 64 BANDS 22 LYMPHS 10 MONOS 4 07/17/2015 6:50 AM WBC 14.1 RBC 3.46 HGB 10.50 g/dLHCT 31.0 %MCV 90.0 fLMCH 30.30 pgMCHC 33.90 g/dLRDW SD 41 RDW CV 12.60 %MPV 8.40 fLPLT 287 NRBC# 0.00 NRBC% 0.0 %NEUT 79.60 %%LYMP 9.80 %%MONO 9.30 %%EOS 0.20 %%BASO 0.40 %#NEUT 11.24 #LYMP 1.39 #MONO 1.31 #EOS 0.03 #BASO 0.05 MANUAL DIFF NOT IND 2015 12:00 PM WBC 12.1 RBC 3.63 HGB 10.80 g/dLHCT 32.70 %MCV 90.0 fLMCH 29.80 pgMCHC 33.0 g/dLRDW SD 42 RDW CV 12.70 %MPV 8.30 fLPLT 290 NRBC# 0.00 NRBC% 0.0 %NEUT 76.80 %%LYMP 15.40 %%MONO 4.90 %%EOS 1.30 %%BASO 0.30 %#NEUT 9.27 #LYMP 1.86 #MONO 0.59 #EOS 0.16 #BASO 0.04 MANUAL DIFF NOT IND 09/01/2015 12:07 AM AMNISURE ROM NEGATIVE 09/08/2015 11:20 PM COLOR YELLOW APPEARANCE ORION R SPEC GRAV 1.020 pH 6.5 PROTEIN NEGATIVE GLUCOSE NEGATIVE mg/dLKETONE NEGATIVE BILIRUBIN NEGATIVE BLOOD NEGATIVE NITRITE NEGATIVE LEUK SCREEN NEGATIVE MICRO INDICATED? NOT INDICATED 10/10/2015 4:39 PM STREP GROUP B PCR GBS POSITI VE 10/12/2015 7:25 PM COLOR YELLOW APPEARANCE ORION R SPEC GRAV 1.015 pH 6.0 PROTEIN NEGATIVE GLUCOSE NEGATIVE mg/dLKETONE NEGATIVE BILIRUBIN NEGATIVE BLOOD NEGATIVE NITRITE NEGATIVE LEUK SCREEN TRACE MICRO INDICATED? SEE BELOW WBC/HPF 0-5 RBC/HPF NEGATIVE CASTS/LPF NEGATIVE /LPFCRYSTALS NEGATIVE MUCOUS THRDS NEGATIVE BACTERIA 1+ EPITH CELLS 1+ SQUAMOUS /HPFTRICHOMONAS NEGATIVE YEAST NEGATIVE CULT SET UP? NO 10/22/2015 10:58 PM AMNISURE ROM NEGATIVE 10/29/2015 [...] Normal first confirmed, currently in third t Sep 14 2015 2:54PM History of pyelonephritis Sep 14 2015 2:54PM Need for Tdap vaccine Sep 14 2015 2:57PM Group B Strep Screening, Oct 10 2015 2:27PM Term Oct 26 2015 3:17PM Post- Follow-Up Dec 12 2015 11:50AM Contraceptive education Feb 28 2016 1:50PM Amenorrhea Apr 18 2016 12:57PM Payers Insurance Name Company Name Plan Name Plan Number Policy Number Javier cy Group Number Start Date BCBS Bcbs [facility] [id number] Mo nd, 2011 Amerigroup [place] State Plan Amerigroup [place] State Plan [id number] N/A [place] Medical [place] Medical Sher[place] tance Prog [id number] Tuesday, 2009 [place] Cane Cutter Prog - RHC [place] Cane Cutter Prog - RH C [id number] N/A [facility] - C - [facility] ealthCare RHC Comm [id number] N/A [employer] Financial Assistance [employer] Fin ancial Sheron 50 percent Tuesday, April 21, 2015 History of Encounters Visit Date Visit Type Provider 02/28/2016 Office visit Neisha lara STRIPPING AND BOOKING MACHINE OPERATOR 01/29/2016 Hospital Kassandra Marin MD 12/12/[address] Shannon white MD 11/01/[address] [facility] [address] Shannon white MD 10/26/2015 Office visit Michelle Sanchez DO 10/19/[address] Shannon white MD 10/10/2015 Office visit Michelle Sanchez DO 09/28/2015 Office visit MICHELLE SANCHEZ DO 09/14/[address] Shannon white MD 09/04/[address] [facility] [address] Shannon white MD [address] Shannon white MD 08/15/2015 Office visit Hali spangler MD 08/11/2015 Voided Neisha lara STRIPPING AND BOOKING MACHINE OPERATOR 07/24/[address] Shannon white MD 07/18/[address] [facility] [address] Shannon white MD 07/17/[address] [facility] [address] Shannon white MD 07/12/[address] Shannon white MD 06/14/[address] Shannon white MD 06/11/2015 Office visit Emily Heredia STRIPPING AND BOOKING MACHINE OPERATOR 05/29/2015 Office visit Sergey Anguiano [...] Anguiano MD 09/29/2014 Procedures Neisha AmorDiana lara STRIPPING AND BOOKING MACHINE OPERATOR 08/11/2014 Office visit Sergey Anguiano MD 05/26/2014 Office visit Sergey Anguiano MD 04/05/2014 Office visit Sergey Anguiano MD 09/16/2013 Office visit [place] STRIPPING AND BOOKING MACHINE OPERATOR 08/31/2012 Office visit Sergey Anguiano MD 06/03/2012 Office visit Liane Gamez MD 03/16/2012 Office visit [place] STRIPPING AND BOOKING MACHINE OPERATOR 10/18/2011 Procedures Liane Gamez MD 09/25/2011 Office visit Liane Gamez MD 07/26/2011 Office visit Sergey Anguiano MD 05/27/2011 Office visit Sergey Anguiano MD 11/06/2010 Office visit Sergey Anguiano MD 06/26/2010 Office visit Sergey Anguiano MD 05/28/2010 Office visit Sergey Anguiano MD 09/15/2009 Nurse visit Sergey Anguiano MD 07/18/2009 Office visit Sergey Anguiano MD
--- OUTSIDE RECORDS SUMMARY | 2019-07-07 16:42 | XMS REPORT ---
Author Author Genet Khoury Organization [facility] ou Address [address] [place], [place] [address] Care Team Providers Care Train Brake Operator Name Role Phone Neisha Khoury PCP Unavailable [...] 1:40 PM BETA HCG QUANT <1 mIU/mL History Of Immunizations Name Date Admin Mfg Name Mfg Code Trade Name Lot# Route Inj Vis Given Vis Pub CVX HPV 07/18/2009 Merck [employer] Co., Inc. MSD GARDASIL [id number] Intramuscul ar Left Deltoid 07/18/2009 05/23/2006 999 Tdap 09/14/2015 GlaxoSmUse It Betterine SKB BOOSTRIX [id number] Intramuscular Right Deltoid 09/14/2015 [...] Group Number Start Date BCBS Bcbs Of [place] [id number] Mo nd, 2011 Amerigroup [place] State Plan Amerigroup [place] State Plan [id number] N/A [place] Medical Assistance Program [place] Medical Sher[place] tance Prog [id number] Tuesday, 2009 [place] Fulling Mill Operator Prog - RHC [place] Fulling Mill Operator Prog - RH C [id number] N/A [facility] - RHC - [facility] Plan [facility] ealthCare RHC Comm [id number] N/A [employer] Financial Assistance [facility] Fin ancial Sheron 50 percent Tuesday, April 21, 2015 History of Encounters Visit Date Visit Type Provider 01/06/2017 Office visit Neisha lara MANAGER SECURITY AND SAFETY 02/28/2016 Office visit Neisha lara MANAGER SECURITY AND SAFETY 01/29/2016 Hospital Kassandra Marin MD 12/12/[address] Shannon white MD 11/01/[address] [facility] [address] Shannon white MD 10/26/2015 Office visit Michelle Sanchez DO 10/19/[address] Shannon white MD 10/10/2015 Office visit Michelle Sanchez DO 09/28/2015 Office visit MICHELLE SANCHEZ DO 09/14/[address] Shannon white MD 09/04/[address] [facility] [address] Shannon white MD [address] Shannon white MD 08/15/2015 Office visit Hali spangler MD 08/11/2015 Voided Neisha lara MANAGER SECURITY AND SAFETY 07/24/[address] Shannon white MD 07/18/[address] [facility] [address] Shannon white MD 07/17/[address] [facility] [address] Shannon white MD 07/12/[address] Shannon white MD 06/14/[address] Shannon white MD 06/11/2015 Office visit Emily Heredia MANAGER SECURITY AND SAFETY 05/29/2015 Office visit Sergey Anguiano MD 05/17/[address] Shannon white MD 04/19/[address] Shannon white MD 04/05/2015 Office visit Irina PINEDA RN 03/30/2015 Office visit Sergey Anguiano MD 03/22/[address] Shannon white MD 01/13/[address] ROSANNA GRIGGS MD 01/04/2015 Office visit Irina PINEDA RN 12/16/2014 Office visit Sergey Anguiano MD 09/29/2014 Procedures Neisha lara MANAGER SECURITY AND SAFETY 08/11/2014 Office visit Sergey Anguiano MD 05/26/2014 Office visit Sergey Anguiano MD 04/05/2014 Office visit Sergey Anguiano MD 09/16/2013 Office visit [place] MANAGER SECURITY AND SAFETY 08/31/2012 Office visit Sergey Anguiano MD 06/03/2012 Office visit Liane Gamez MD 03/16/2012 Office visit [place] MANAGER SECURITY AND SAFETY 10/18/2011 Procedures Liane Gamez MD 09/25/2011 Office visit Liane Gamez MD 07/26/2011 Office visit Sergey Anguiano MD 05/27/2011 Office visit Sergey Anguiano MD 11/06/2010 Office visit Sergey Anguiano MD 06/26/2010 Office visit Sergey Anguiano MD 05/28/2010 Office visit Sergey Anguiano MD 09/15/2009 Nurse visit Sergey Anguiano MD 07/18/2009 Office visit Sergey Anguiano MD
--- OUTSIDE RECORDS SUMMARY | 2019-07-07 16:42 | XMS REPORT ---
Author Author Genet Brown Organization [facility] Physicians oup Address [address] [place], [place] [address] Care Team Providers Care Balloon Sander Name Role Phone Shannon Brown PCP Unavailable [...] Group Number Start Date BCBS Bcbs Of [place] [id number] Mo ndNovember 18, 2011 [employer] - RHC - [place] State Plan Amerigroup - [facility] State Plan [id number] N/A [place] Medical Assistance Program [place] Medical Sher[place] tance Prog [id number] Tuesday, 2009 [place] Urban Planning Teacher Prog - RHC [place] Urban Planning Teacher Prog - RH C [id number] N/A [facility] - [facility] - [facility] ealthCare RHC Comm [id number] N/A [employer] Financial Assistance [employer] Fin ancial Sheron 50 percent Tuesday, April 21, 2015 [employer]igroup [place] State Plan [facility] [id number] N/A History of Encounters Visit Date Visit Type Provider 01/27/[address] Shannon white MD 01/06/2017 Office visit Neisha lara INSOLE STIFFENER 02/28/2016 Office visit Neisha lara INSOLE STIFFENER 01/29/2016 [facility] Kassandra Marin MD 12/12/[address] Shannon white MD 11/01/[address] [facility] [address] Shannon white MD 10/26/2015 Office visit Michelle Sanchez DO 10/19/[address] Shannon white MD 10/10/2015 Office visit Michelle Sanchez DO 09/28/2015 Office visit MICHELLE SANCHEZ DO 09/14/[address] Shannon white MD 09/04/[address] [facility] [address] Shannon white MD [address] Shannon white MD 08/15/2015 Office visit Hali spangler MD 08/11/2015 Voided Neisha lara INSOLE STIFFENER 07/24/[address] Shannon white MD 07/18/[address] [facility] [address] Shannon white MD 07/17/[address] [facility] [address] Shannon white MD 07/12/[address] Shannon white MD 06/14/[address] Shannon white MD 06/11/2015 Office visit Emily Heredia INSOLE STIFFENER 05/29/2015 Office visit Sergey Anguiano MD 05/17/[address] Shannon white MD 04/19/[address] Shannon white MD 04/05/2015 Office visit Irina PINEDA RN 03/30/2015 Office visit Sergey Anguiano MD 03/22/[address] Shannon white MD 01/13/[address] ROSANNA GRIGGS MD 01/04/2015 Office visit Irina PINEDA RN 12/16/2014 Office visit Sergey Anguiano MD 09/29/2014 Procedures Neisha lara INSOLE STIFFENER 08/11/2014 Office visit Sergey Anguiano MD 05/26/2014 Office visit Sergey Anguiano MD 04/05/2014 Office visit Sergey Anguiano MD 09/16/2013 Office visit [place] INSOLE STIFFENER 08/31/2012 Office visit Sergey Anguiano MD 06/03/2012 Office visit Liane Gamez MD 03/16/2012 Office visit [place] INSOLE STIFFENER 10/18/2011 Procedures Liane Gamez MD 09/25/2011 Office visit Liane Gamez MD 07/26/2011 Office visit Sergey Anguiano MD 05/27/2011 Office visit Sergey Anguiano MD 11/06/2010 Office visit Sergey Anguiano MD 06/26/2010 Office visit Sergey Anguiano MD 05/28/2010 Office visit Sergey Anguiano MD 09/15/2009 Nurse visit Sergey Anguiano MD 07/18/2009 Office visit Sergey Anguiano MD
--- OUTSIDE RECORDS SUMMARY | 2019-07-07 16:42 | XMS REPORT ---
Author Author Genet Brown Organization [facility] ou Address [address] [place], [place] [address] Care Team Providers Care Healthcare Management Name Role Phone Shannon Brown PCP Unavailable [...] 0.0302 ug/mLAFP Mo M 0.91 hCG Value 65935.0 mIU/mLhCG MoM 1.27 uE3 Value 1.550 ng/mLuE3 MoM 1.63 SHINE Value 190.730 pg/mLDIA MoM 1.15 OSBR [place] 1 [place] [address] DSR (Second Trimester) 1IN 5960 DSR (By [...] cy Group Number Start Date BCBS Bcbs [facility] [id number] Mo nday, 2011 [employer] Financial Assistance [employer] Rubio ancial Sheron 50 percent Tuesday, April 21, 2015 [place] Medical Assistance Program [place] [facility] Sher[place] nidhi [place] [id number] Tuesday, April 21, 2009 [place] Winder Operator Prog - RHC [place] Winder Operator Prog - RH C [id number] N/A [facility] Comm [id number] N/A History of Encounters Visit Date Visit Type Provider 10/19/[address] Shannon white MD 10/10/2015 Office visit Michelle Rebolledo DO 09/28/2015 Office visit MICHELLE REBOLLEDO DO 09/14/[address] Shannon white MD 09/04/[address] Shannon white MD [address] Shannon white MD 08/15/2015 Office visit Hali spangler MD 08/11/2015 Voided Neisha lara PARAFFIN MACHINE OPERATOR 07/24/[address] Shannon white MD 07/18/[address] [facility] [address] Shannon white MD 07/12/[address] Shannon white MD 06/14/[address] Shannon white MD 06/11/2015 Office visit Emily Heredia PARAFFIN MACHINE OPERATOR 05/29/2015 Office visit Sergey Anguiano [...] Sergey Anguiano MD 09/29/2014 Procedures Neisha lara PARAFFIN MACHINE OPERATOR 08/11/2014 Office visit Sergey Anguiano MD 05/26/2014 Office visit Sergey Anguiano MD 04/05/2014 Office visit Sergey Anguiano MD 09/16/2013 Office visit [place] PARAFFIN MACHINE OPERATOR 08/31/2012 Office visit Sergey Anguiano [...]
--- OUTSIDE RECORDS SUMMARY | 2019-07-07 16:43 | XMS REPORT ---
Author Genet Landry Organization [facility] ou Address [address] [place], [place] [address] Care Team Providers Care Supervisor Statement Clerks Name Role Phone Neisha Khoury PCP Unavailable Sergey Anguiano PreferredProvider Unavailable Allergies and Adverse Reactions Name Reaction Notes NO KNOWN DRUG ALLERGIES Plan of Treatment Planned Activity Comments Planned Date Planned Time Plan/Goal URINALYSIS ROUTINE C&S IF IND 04/05/2015 12:00 AM test, urine 01/02/2015 12:00 AM [...] REAL TIME W/IMAGE DCMTN T RANSVAG Reviewed 05/29/2015 12:00 AM ALPHA-FETOPROTEIN SERUM Returned 05/29/2015 [...] Value 0.0302 ug/mLAFP MoM 0.91 hCG Value 89252.0 mIU/mLhCG MoM 1.27 uE3 Value 1.550 ng/mLuE3 MoM 1.63 SHINE Value 190.730 pg/mLDIA MoM 1.15 [place]BR [place] 1 [place] [address] DSR (Second Trimester) 1IN 5960 DSR (By [...] Left Deltoid 07/18/2009 05/23/2006 999 Tdap 09/14/2015 [employer] SKB BOOSTRIX [id number] Intramuscular Right Deltoid 09/14/2015 [...] 11:50AM Contraceptive education Feb 28 2016 1:50PM Payers Insurance Name Company Name Plan Name Plan Number Policy Number Javier cy Group Number Start Date BCBS Bcbs Of [place] [id number] Mo 2011 Amerigroup [place] State Plan Amerigroup [place] State Plan [id number] N/A [place] Medical Assistance Program [facility] Sheron [place] [id number] Tuesday, 2009 [place] Technical Spec Prog - RHC [place] Technical Spec Prog - RH C [id number] N/A [facility] - C - [facility] Comm [id number] N/A [employer] Financial Assistance [employer]ise Fin ancial Sheron 50 percent Tuesday, April 21, 2015 History of Encounters Visit Date Visit Type Provider 02/28/2016 Office visit Neisha lara SADDLE MECHANIC 01/29/2016 Hospital Kassandra Marin MD 12/12/2015 Office [...] Hali spangler MD 08/11/2015 Voided Neisha lara SADDLE MECHANIC 07/24/[address] Shannon white MD 07/18/[address] [facility] [address] Shannon white MD 07/17/[address] [facility] [address] Shannon white MD 07/12/[address] Shannon white MD 06/14/[address] Shannon white MD 06/11/2015 Office visit Emily Heredia SADDLE MECHANIC 05/29/2015 Office visit Sergey Anguiano MD 05/17/[address] Shannon white MD 04/19/[address] Shannon white MD 04/05/2015 Office visit Irina PINEDA RN 03/30/2015 Office visit Sergey Anguiano MD 03/22/[address] Shannon white MD 01/13/[address] ROSANNA GRIGGS MD 01/04/2015 Office visit Irina PINEDA RN 12/16/2014 Office visit Sergey Anguiano MD 09/29/2014 Procedures Neisha lara SADDLE MECHANIC 08/11/2014 Office visit Sergey Anguiano MD 05/26/2014 Office visit Sergey Anguiano MD 04/05/2014 Office visit Sergey Anguiano MD 09/16/2013 Office visit [place] SADDLE MECHANIC 08/31/2012 Office visit Sergey Anguiano MD 06/03/2012 Office visit Liane Gamez MD 03/16/2012 Office visit [place] SADDLE MECHANIC 10/18/2011 Procedures Liane Gamez MD 09/25/2011 Office visit Liane Gamez MD 07/26/2011 Office visit Sergey Anguiano MD 05/27/2011 Office visit Sergey Anguiano MD 11/06/2010 Office visit Sergey Anguiano MD 06/26/2010 Office visit Sergey Anguiano MD 05/28/2010 Office visit Sergey Anguiano MD 09/15/2009 Nurse visit Sergey Anguiano MD 07/18/2009 Office visit Segrey Anguiano MD
--- OUTSIDE RECORDS SUMMARY | 2019-07-07 16:43 | XMS REPORT ---
Author Author Genet Brown Organization [facility] ou Address [address] [place] [id number] Care Team Providers Care Cross Tie Turner Name Role Phone Shannon Brown PCP Unavailable [...] TOLERANCE TEST (GTT) Returned 09/14/2015 12:00 AM TDAP VACCINE 7 [...] 0.0302 ug/mLAFP Mo M 0.91 hCG Value 87074.0 mIU/mLhCG MoM 1.27 uE3 Value 1.550 ng/mLuE3 MoM 1.63 SHINE Value 190.730 pg/mLDIA MoM 1.15 OSBR [place] 1 [place] [address] DSR (Second Trimester) 1IN 5960 DSR (By [...] Group Number Start Date BCBS Bcbs Of [place] [id number] Mo 2011 [place] Medical Assistance Program [place] Medical Sher[place] tance Prog [id number] Tuesday, 2009 [place] Dimmer Board Operator Prog - RHC [place] Dimmer Board Operator Prog - RH C [id number] N/A [facility] - Community Plan [facility] Comm [id number] N/A History of Encounters Visit Date Visit Type Provider 09/14/[address] Shannon white MD [address] Shannon white MD 08/15/2015 Office visit Hali spangler MD 08/11/2015 Voided Neisha lara HIDE WORKER 07/24/[address] Shannon white MD 07/18/2015 [facility] Dr. Shannon white MD 07/12/[address] Shannon white MD 06/14/[address] Shannon white MD 06/11/2015 Office visit Emily Heredia HIDE WORKER 05/29/2015 Office visit Sergey Anguiano MD 05/17/[address] Shannon white MD 04/19/[address] Shannon white MD 04/05/2015 Office visit Irina PINEDA RN 03/30/2015 Office visit Sergey Anguiano MD 03/22/[address] Shannon white MD 01/13/[address] ROSANNA GRIGGS MD 01/04/2015 Office visit Irina PINEDA RN 12/16/2014 Office visit Sergey Anguiano MD 09/29/2014 Procedures Neisha lara HIDE WORKER 08/11/2014 Office visit Sergey Anguiano MD 05/26/2014 Office visit Sergey Anguiano MD 04/05/2014 Office visit Sergey Anguiano MD 09/16/2013 Office visit [place] HIDE WORKER 08/31/2012 Office visit Sergey Anguiano MD 06/03/2012 Office visit Liane Gamez MD 03/16/2012 Office visit [place] HIDE WORKER 10/18/2011 Procedures Liane Gamez MD 09/25/2011 Office visit Liane Gamez MD 07/26/2011 Office visit Sergey Anguiano MD 05/27/2011 Office visit Sergey Anguiano MD 11/06/2010 Office visit Sergey Anguiano MD 06/26/2010 Office visit Sergey Anguiano MD 05/28/2010 Office visit Sergey Anguiano MD 09/15/2009 Nurse visit Sergey Anguiano MD 07/18/2009 Office visit Sergey Anguiano MD
--- OUTSIDE RECORDS SUMMARY | 2019-07-07 16:44 | XMS REPORT ---
Author Genet Landry Organization [facility] Address [address] [place], [place] [id number] Care Team Providers Care Shrub Planter Name Role Phone Neisha Khoury PCP Unavailable [...] Value 0.0302 ug/mLAFP MoM 0.91 hCG Value 36514.0 mIU/mLhCG MoM 1.27 uE3 Value 1.550 ng/mLuE3 MoM 1.63 SHINE Value 190.730 pg/mLDIA MoM 1.15 OSBR [place] 1 [place] [address] DSR (Second Trimester) 1IN 5960 DSR (By [...] Left Deltoid 07/18/2009 05/23/2006 999 Tdap 09/14/2015 [employer] SKB BOOSTRIX [id number] Intramuscular Right Deltoid 09/14/2015 [...] Number Start Date BCBS [place] [id number] Mo 2011 [employer] [place] [employer] [place] [id number] N/A [place] Medical Assistance Program [facility] Sheron Burkett [id number] Tuesday, 2009 [place] Source Inspector Prog - RHC [place] Source Inspector Prog - RH C [id number] N/A [facility] ealtFormerly named [facility] RHC Comm [id number] N/A [place] [employer] Assistance [place] Fin ancial Sheron 50 percent Tuesday, April 21, 2015 History of Encounters Visit Date Visit Type Provider 02/28/2016 Office visit Neisha lara SUPERVISOR TELEPHONE ANSWERING SERVICE 01/29/2016 Hospital Kassandra Marin MD 12/12/2015 Office [...] Hali spangler MD 08/11/2015 Voided Neisha lara SUPERVISOR TELEPHONE ANSWERING SERVICE 07/24/[address] Shannon white MD 07/18/[address] [facility] [address] Shannon white MD 07/17/[address] [facility] [address] Shannon white MD 07/12/[address] Shannon white MD 06/14/[address] Shannon white MD 06/11/2015 Office visit Emily Heredia SUPERVISOR TELEPHONE ANSWERING SERVICE 05/29/2015 Office visit Sergey Anguiano MD 05/17/[address] Shannon white MD 04/19/[address] Shannon white MD 04/05/2015 Office visit Irina PINEDA RN 03/30/2015 Office visit Sergey Anguiano MD 03/22/[address] Shannon white MD 01/13/[address] ROSANNA GRIGGS MD 01/04/2015 Office visit Irina PINEDA RN 12/16/2014 Office visit Sergey Anguiano MD 09/29/2014 Procedures Neisha lara SUPERVISOR TELEPHONE ANSWERING SERVICE 08/11/2014 Office visit Sergey Anguiano MD 05/26/2014 Office visit Sergey Anguiano MD 04/05/2014 Office visit Sergey Anguiano MD 09/16/2013 Office visit [place] SUPERVISOR TELEPHONE ANSWERING SERVICE 08/31/2012 Office visit Sergey Anguiano MD 06/03/2012 Office visit Liane Gamez MD 03/16/2012 Office visit [place] SUPERVISOR TELEPHONE ANSWERING SERVICE 10/18/2011 Procedures Liane Gamez MD 09/25/2011 Office visit Liane Gamez MD 07/26/2011 Office visit Sergey Anguiano MD 05/27/2011 Office visit Sergey Anguiano MD 11/06/2010 Office visit Sergey Anguiano MD 06/26/2010 Office visit Sergey Anguiano MD 05/28/2010 Office visit Sergey Anguiano MD 09/15/2009 Nurse visit Sergey Anguiano MD 07/18/2009 Office visit Sergey Anguiano MD
--- OUTSIDE RECORDS SUMMARY | 2019-07-07 16:44 | XMS REPORT ---
Author Author Genet Brown Organization [facility] Address [address] [place], [place] [id number] Care Team Providers Care Bulk Folder Name Role Phone Shannon Brown PCP Unavailable [...] per day permethrin 5 % topical cream 05/17/2015 chance ly (thoroughly massage into skin from [...] Group Number Start Date BCBS Bcbs Of [place] [id number] Mo 2011 [place] Medical Assistance Program [place] [facility] Sher[place] tance Prog [id number] Tuesday, 2009 [place] Biology Professor Prog - RHC [place] Biology Professor Prog - RH C [id number] N/A [facility] Comm [id number] N/A History of Encounters Visit Date Visit [...] Sergey Anguiano MD 09/29/2014 Procedures Neisha lara DREDGE PUMP OPERATOR 08/11/2014 Office visit Sergey Anguiano MD 05/26/2014 Office visit Sergey Anguiano MD 04/05/2014 Office visit Sergey Anguiano MD 09/16/2013 Office visit [place] DREDGE PUMP OPERATOR 08/31/2012 Office visit Sergey Anguiano MD 06/03/2012 Office visit Liane Gamez MD 03/16/2012 Office visit [place] DREDGE PUMP OPERATOR 10/18/2011 Procedures Liane Gamez MD 09/25/2011 Office visit Liane Gamez MD 07/26/2011 Office visit Sergey Anguiano MD 05/27/2011 Office visit Sergey Anguiano MD 11/06/2010 Office visit Sergey Anguiano MD 06/26/2010 Office visit Sergey Anguiano MD 05/28/2010 Office visit Sergey Anguiano MD 09/15/2009 Nurse visit Sergey Anguiano MD 07/18/2009 Office visit Sergey Anguiano MD
== END 2019-07-07 13:59 | disposition home or self-care (01) ==
LOC: EDUNIT# 12:25 → ER 12:28
DX: R06.00 Dyspnea, unspecified (principal)
CPT/HCPCS: 36415; 71046; 80048; 85025; 85379

== ENCOUNTER 2020-11-01 15:07 | Emergency (ER) | payer MEDICAID ==
[~2020-11-01] VITALS: Ht 172 cm; Wt 113.6 kg
--- NOTE | 2020-11-01 15:50 | ED GU-Female ---
General Chief Complaint: - Urinary Stated Complaint: VAGINAL BLEEDING Nursing Triage Note: AMB TO ED CONCERN BECAUSE SHE HAS A TUBAL LIGATION ON FRIDAY NOTICED A PATCH OF SKIN THAT SHE ONLY HAD WHEN SHE WAS PREG. TOOK A HOME PREG TEST THAT WAS POS. ON FRIDAY STARTED WITH LOW ABD PAIN AND VAG BLEEDING IS HAVING BURNING WHEN SHE URINATES. LMP WAS IN JUNE. [facility] STATES THAT PATIENT LEFT THEIR OFFICE. BECAUSE THEY ASKED FOR UA. Source: patient Exam Limitations: no limitations History of Present Illness Date Seen by Provider: Nov 01, 2020 Time Seen by Provider: 15:16 Initial Comments Patient to ER by private conveyance from women[facility] clinic with chief complaint that she was sent over here for work-up. She says she has not had a period since June 20. She is usually very regular lasting about 5 days. She checked a test that was positive on Friday, 5 days ago. She went to the clinic and was not able to produce a sample because I had blood in it so she left and came here. The clinic called ahead and said that they sent her to give a urine sample and she just walked out. The patient states she has had her tubes tied as well as 2 C-sections. No other abdominal surgeries. She is having some low bilateral abdominal pain wrapping up around her left side. She says she was in the kitchen on Friday, 4 days ago cooking when she felt like she wet herself and when she went to the bathroom she was bleeding from the vagina. Patient states she has a history of bipolar, borderline, schizophrenia and multiple other psychiatric disorders. Follows by [facility] for primary care. Allergies and Home Medications Allergies Coded Allergies: No Known Drug Allergies (Unverified , 11/01/20) Patient Home Medication List Home Medication List Reviewed: Yes Review of Systems Review of Systems Constitutional: see HPI (Pain positive review of systems); No chills, No diaphoresis EENTM: No hearing loss, No ear pain Respiratory: No cough, No phlegm Cardiovascular: No chest pain, No palpitations Gastrointestinal: abdominal pain; No constipation, No nausea, No vomiting Genitourinary: denies burning, denies discharge Musculoskeletal: No back pain, No joint pain All Other Systemes Reviewed Negative Unless Noted: Yes Past Xfbhwbb-Sltrwn-Ukeyfb Hx Patient Social History Tobacco Use?: No Substance frequency: Rarely Immunizations Up To Date First/Initial COVID19 Vaccinat: july Seasonal Allergies Seasonal Allergies: No Past Medical History Surgeries: Yes (Renal (as a child)) Section Respiratory: No Cardiac: No Neurological: No Genitourinary: Yes Kidney Infection Musculoskeletal: No Endocrine: No HEENT: No Cancer: No Psychosocial: No Integumentary: No Physical Exam Vital Signs Vital Signs - First Documented 11/01/20 15:15 Temp 37.0 Pulse 97 Resp 18 B/P (MAP) 130/98 (109) Pulse Ox 98 O2 Delivery Room Air Capillary Refill : Less Than 3 Seconds Height, Weight, BMI Height: '" Weight: lbs. oz. kg; 38.00 BMI Method: General Appearance: no apparent distress, obese HEENT: PERRL/EOMI, pharynx normal Neck: full range of motion, normal inspection Cardiovascular: normal peripheral pulses, regular rate, rhythm Respiratory: lungs clear, normal breath sounds, no respiratory distress, no accessory muscle use Gastrointestinal: normal bowel sounds, non tender, soft, no organomegaly, no pulsatile mass Extremities: normal range of motion, normal capillary refill Neurologic/Psychiatric: alert, normal mood/affect, oriented x 3 Skin: normal color, warm/dry Progress/Results/Core Measures Suspected Sepsis SIRS Temperature: Pulse: 97 Respiratory Rate: 18 Laboratory Tests 11/01/20 16:09: White Blood Count 9.5 Blood Pressure 130 /98 Mean: 109 Laboratory Tests 11/01/20 16:09: Creatinine 0.82, Platelet Count 386, Total Bilirubin 0.5 Results/Orders Lab Results Laboratory Tests Test 11/01/20 15:45 11/01/20 16:09 Range/Units Urine Color YELLOW Urine Clarity CLEAR Urine pH 6.5 5-9 Urine Specific [place] 1.025 H 1.016-1.022 Urine Protein NEGATIVE NEGATIVE Urine Glucose (UA) NEGATIVE NEGATIVE Urine Ketones NEGATIVE NEGATIVE Urine Nitrite NEGATIVE NEGATIVE Urine Bilirubin NEGATIVE NEGATIVE Urine Urobilinogen 1.0 < = 1.0 MG/DL Urine Leukocyte Esterase NEGATIVE NEGATIVE Urine RBC (Auto) 1+ H NEGATIVE Urine RBC 0-2 /HPF Urine WBC NONE /HPF Urine Squamous Epithelial Cells 2-5 /HPF Urine Crystals NONE /LPF Urine Bacteria TRACE /HPF Urine Casts NONE /LPF Urine Mucus SMALL H /LPF Urine Culture Indicated NO White Blood Count 9.5 4.3-11.0 10^3/uL Red Blood Count 4.66 3.80-5.11 10^6/uL Hemoglobin 13.3 11.5-16.0 g/dL Hematocrit 40 35-52 % Mean Corpuscular Volume 85 80-99 fL Mean Corpuscular Hemoglobin 29 25-34 pg Mean Corpuscular Hemoglobin Concent 33 32-36 g/dL Red Cell Distribution Width 12.5 10.0-14.5 % Platelet Count 386 130-400 10^3/uL Mean Platelet Volume 8.8 L 9.0-12.2 fL Immature Granulocyte % (Auto) 0 % Neutrophils (%) (Auto) 60 42-75 % Lymphocytes (%) (Auto) 31 12-44 % Monocytes (%) (Auto) 6 0-12 % Eosinophils (%) (Auto) 2 0-10 % Basophils (%) (Auto) 1 0-10 % Neutrophils # (Auto) 5.7 1.8-7.8 10^3/uL Lymphocytes # (Auto) 3.0 1.0-4.0 10^3/uL Monocytes # (Auto) 0.6 0.0-1.0 10^3/uL Eosinophils # (Auto) 0.2 0.0-0.3 10^3/uL Basophils # (Auto) 0.1 0.0-0.1 10^3/uL Immature Granulocyte # (Auto) 0.0 0.0-0.1 10^3/uL Sodium Level 140 135-145 MMOL/L Potassium Level 3.5 L 3.6-5.0 MMOL/L Chloride Level 106 98-107 MMOL/L Carbon Dioxide Level 22 21-32 MMOL/L Anion Gap 12 5-14 MMOL/L Blood Urea Nitrogen 10 7-18 MG/DL Creatinine 0.82 0.60-1.30 MG/DL Estimat Glomerular Filtration Rate > 60 BUN/Creatinine Ratio 12 Glucose Level 83 70-105 MG/DL Calcium Level 8.9 8.5-10.1 MG/DL Corrected Calcium 8.9 8.5-10.1 MG/DL Total Bilirubin 0.5 0.1-1.0 MG/DL Aspartate Amino Transf (AST/SGOT) 31 5-34 U/L Alanine Aminotransferase (ALT/SGPT) 41 0-55 U/L Alkaline Phosphatase 62 40-136 U/L C-Reactive Protein High Sensitivity 1.82 H 0.00-0.50 MG/DL Total Protein 7.1 6.4-8.2 GM/DL Albumin 4.0 3.2-4.5 GM/DL My Orders Orders - DEYANIRA VALENTIN Ua Culture If Indicated (11/01/20 15:33) Urine Bedside (11/01/20 15:33) Cbc With Automated Diff (11/01/20 15:57) Comprehensive Metabolic Panel (11/01/20 15:57) Hs C Reactive Protein (11/01/20 15:57) Drug Screen Stat (Urine) (11/01/20 15:57) Vital Signs/I&O 11/01/20 15:15 Temp 37.0 Pulse 97 Resp 18 B/P (MAP) 130/98 (109) Pulse Ox 98 O2 Delivery Room Air Capillary Refill : Less Than 3 Seconds Blood Pressure Mean: 109 Progress Note : Time: 16:02 Progress Note Urine is negative. Aseptic vitals, benign abdominal exam. We discussed doing some labs and if the labs are not remarkable then we would encourage her to follow-up outpatient as this is likely her menses starting. She is very disorganized and her story suddenly changes every time she tells it. Just the same if her labs are okay then I have low suspicion for a dangerous intra-abdominal or intrapelvic process. She is not requiring anything for pain and is in total agreement with this plan. Departure Impression Primary Impression: Dysmenorrhea, unspecified Disposition: 01 HOME, SELF-CARE Condition: Stable Departure-Patient Inst. Decision time for Depature: 16:51 Referrals: [facility] [place] (PCP/Family) Primary Care Physician Patient Instructions: Painful Periods Add. Discharge Instructions: Tylenol 1000 mg every 8 hours as necessary for pain. Ibuprofen 800 mg every 8 hours as necessary for pain. Warm moist heating pads across her abdomen can be helpful for pain. If you are having intractable, severe pain that does not relent or go away then I would encourage you to either follow-up with your primary care doctor or return to the nearest ER for prompt evaluation. All discharge instructions reviewed with patient and/or family. Voiced understanding. DEYANIRA VALENTIN Nov 01, 2020 15:50
[2020-11-01 15:56] LABS: BILIRUBIN,URINE NEGATIVE (NEGATIVE); CLARITY,URINE CLEAR; COLOR,URINE YELLOW; GLUCOSE, URINE (UA) NEGATIVE (NEGATIVE); KETONES,URINE NEGATIVE (NEGATIVE); LEUKOCYTE ESTERASE ,URINE NEGATIVE (NEGATIVE); NITRITE,URINE NEGATIVE (NEGATIVE); PH,URINE 6.5 (5-9); PROTEIN,URINE NEGATIVE (NEGATIVE)
[2020-11-01 16:02] LABS: BACTERIA,URINE TRACE /HPF; RBC,URINE 0-2 /HPF
[2020-11-01 16:29] LABS: BASOPHILS # (AUTO) 0.1 10^3/uL (0.0-0.1); BASOPHILS % (AUTO) 1 % (0-10); EOSINOPHILS # (AUTO) 0.2 10^3/uL (0.0-0.3); EOSINOPHILS % (AUTO) 2 % (0-10); HEMATOCRIT 40 % (35-52); HEMOGLOBIN 13.3 g/dL (11.5-16.0); LYMPHOCYTES % (AUTO) 31 % (12-44); MEAN CORPUSCULAR HEMOGLOBIN 29 pg (25-34); MEAN CORPUSCULAR HGB CONC 33 g/dL (32-36); MEAN CORPUSCULAR VOLUME 85 fL (80-99); MEAN PLATELET VOLUME 8.8 fL (9.0-12.2); MONOCYTES # (AUTO) 0.6 10^3/uL (0.0-1.0); MONOCYTES % (AUTO) 6 % (0-12); NEUTROPHILS # (AUTO) 5.7 10^3/uL (1.8-7.8); NEUTROPHILS % (AUTO) 60 % (42-75); PLATELET COUNT 386 10^3/uL (130-400); WHITE BLOOD COUNT 9.5 10^3/uL (4.3-11.0)
[2020-11-01 16:32] LABS: CHLORIDE 106 MMOL/L (98-107); POTASSIUM 3.5 MMOL/L (3.6-5.0); SODIUM 140 MMOL/L (135-145)
[2020-11-01 16:33] LABS: CALCIUM 8.9 MG/DL (8.5-10.1)
[2020-11-01 16:35] LABS: GLUCOSE 83 MG/DL (70-105); TOTAL PROTEIN 7.1 GM/DL (6.4-8.2)
[2020-11-01 16:36] LABS: BILIRUBIN,TOTAL 0.5 MG/DL (0.1-1.0); CARBON DIOXIDE 22 MMOL/L (21-32)
[2020-11-01 16:38] LABS: ALKALINE PHOSPHATASE 62 U/L (40-136); CREATININE SERUM 0.82 MG/DL (0.60-1.30); GFR ESTIMATED > 60
[2020-11-01 16:39] LABS: BUN/CREATININE RATIO 12
[2020-11-01 16:41] LABS: ALANINE AMINOTRANSFERASE 41 U/L (0-55)
[2020-11-01 17:05] VITALS: BP 130/98
[2020-11-02 17:10] LABS: AMPHETAMINE SCREEN, URINE NEGATIVE (NEGATIVE); BARBITURATE SCREEN URINE NEGATIVE (NEGATIVE); BENZODIAZEPINES SCREEN URINE NEGATIVE (NEGATIVE); CANNABINOID SCREEN, URINE POSITIVE (NEGATIVE); COCAINE SCREEN URINE NEGATIVE (NEGATIVE); METHADONE STAT NEGATIVE (NEGATIVE); METHAMPHETAMINE SCREEN URINE S NEGATIVE (NEGATIVE); OPIATE SCREEN URINE NEGATIVE (NEGATIVE); OXYCODONE STAT NEGATIVE (NEGATIVE); PROPOXYPHENE STAT NEGATIVE (NEGATIVE); TRICYCLIC ANTIDEPRESSANTS SCRE NEGATIVE (NEGATIVE)
== END 2020-11-01 17:05 | disposition home or self-care (01) ==
LOC: EDUNIT# 15:07 → ER 15:09
DX: N94.6 Dysmenorrhea, unspecified (principal); E66.9 Obesity, unspecified; Z68.38 Body mass index [BMI] 38.0-38.9, adult; Z98.51 Tubal ligation status; Z32.02 Encounter for pregnancy test, result negative
CPT/HCPCS: 36415; 80053; 80306; 81000; 84703; 85025; 86141

== ENCOUNTER 2021-03-02 11:59 | Emergency (ER) | payer MEDICAID ==
[~2021-03-02] VITALS: Ht 160 cm; Wt 113.4 kg
--- NOTE | 2021-03-02 12:14 | ED General ---
General Stated Complaint: LOWER RIGHT STOMACH PAIN Source of Information: Patient Exam Limitations: No Limitations (LEXII SOLORZANO APRN) History of Present Illness Date Seen by Provider: Mar 02, 2021 Time Seen by Provider: 12:11 Initial Comments To ER with lower right abdominal pain that started last night about midnight. She is had nausea and diarrhea. No vomiting. No dysuria. Last ate chips at 8 AM Timing/Duration: 1-2 Days Severity: Moderate Associated Systoms: Denies Symptoms (LEXII SOLORZANO APRN) Allergies and Home Medications Allergies Coded Allergies: No Known Drug Allergies (Unverified , 11/01/20) Patient Home Medication List Home Medication List Reviewed: Yes (LEXII SOLORZANO APRN) Hydrocodone/Acetaminophen (Hydrocodone-Acetamin 5-325 mg) 1 Each Tablet, 1 TAB PO Q4H PRN for PAIN-MODERATE (5-7) Prescribed by: LEXII SOLORZANO on 03/02/21 1424 Review of Systems Review of Systems Constitutional: see HPI EENTM: see HPI Respiratory: no symptoms reported Cardiovascular: no symptoms reported Genitourinary: no symptoms reported Musculoskeletal: no symptoms reported Skin: no symptoms reported Psychiatric/Neurological: No Symptoms Reported Hematologic/Lymphatic: No Symptoms Reported (LEXII SOLORZANO APRN) Past Nxpcvxh-Kjjspn-Jzyoqn Hx Seasonal Allergies Seasonal Allergies: No (LEXII SOLORZANO APRN) Past Medical History Surgeries: Yes (Renal (as a child)) Section Respiratory: No Cardiac: No Neurological: No Genitourinary: Yes Kidney Infection Musculoskeletal: No Endocrine: No HEENT: No Cancer: No Psychosocial: No Integumentary: No (LEXII SOLORZANO APRN) Physical Exam Vital Signs Vital Signs - First Documented 03/02/21 12:05 Pulse 76 Resp 17 B/P (MAP) 131/67 (88) Pulse Ox 97 O2 Delivery Room Air (ABNER DELANEY MD) Vital Signs Capillary Refill : (LEXII SOLORZANO APRN) Height, Weight, BMI Height: '" Weight: lbs. oz. kg; 38.00 BMI Method: General Appearance: No Apparent Distress, WD/WN, Obese Eyes: Bilateral Eye Normal Inspection, Bilateral Eye PERRL, Bilateral Eye EOMI Neck: Full Range of Motion, Normal Inspection Respiratory: Lungs Clear, Normal Breath Sounds, No Accessory Muscle Use, No Respiratory Distress Cardiovascular: Regular Rate, Rhythm, Normal Peripheral Pulses Gastrointestinal: Normal Bowel Sounds, Soft, Rebound, Tenderness Extremity: Normal Capillary Refill, Normal Inspection Neurologic/Psychiatric: Alert, Oriented x3 Skin: Normal Color, Warm/Dry (LEXII SOLORZANO APRN) Progress/Results/Core Measures Suspected Sepsis SIRS Temperature: Pulse: Respiratory Rate: Laboratory Tests 03/02/21 12:15: White Blood Count 11.0 Blood Pressure / Mean: Laboratory Tests 03/02/21 12:15: Creatinine 0.74, Platelet Count 382, Total Bilirubin 0.3 (LEXII SOLORZANO APRN) Results/Orders Lab Results Laboratory Tests Test 03/02/21 12:15 03/02/21 14:19 Range/Units White Blood Count 11.0 4.3-11.0 10^3/uL Red Blood Count 5.01 3.80-5.11 10^6/uL Hemoglobin 14.6 11.5-16.0 g/dL Hematocrit 43 35-52 % Mean Corpuscular Volume 87 80-99 fL Mean Corpuscular Hemoglobin 29 25-34 pg Mean Corpuscular Hemoglobin Concent 34 32-36 g/dL Red Cell Distribution Width 12.7 10.0-14.5 % Platelet Count 382 130-400 10^3/uL Mean Platelet Volume 8.5 L 9.0-12.2 fL Immature Granulocyte % (Auto) 0 % Neutrophils (%) (Auto) 60 42-75 % Lymphocytes (%) (Auto) 32 12-44 % Monocytes (%) (Auto) 5 0-12 % Eosinophils (%) (Auto) 2 0-10 % Basophils (%) (Auto) 1 0-10 % Neutrophils # (Auto) 6.6 1.8-7.8 10^3/uL Lymphocytes # (Auto) 3.5 1.0-4.0 10^3/uL Monocytes # (Auto) 0.5 0.0-1.0 10^3/uL Eosinophils # (Auto) 0.3 0.0-0.3 10^3/uL Basophils # (Auto) 0.1 0.0-0.1 10^3/uL Immature Granulocyte # (Auto) 0.0 0.0-0.1 10^3/uL Sodium Level 138 135-145 MMOL/L Potassium Level 4.0 3.6-5.0 MMOL/L Chloride Level 106 98-107 MMOL/L Carbon Dioxide Level 22 21-32 MMOL/L Anion Gap 10 5-14 MMOL/L Blood Urea Nitrogen 8 7-18 MG/DL Creatinine 0.74 0.60-1.30 MG/DL Estimat Glomerular Filtration Rate 96 BUN/Creatinine Ratio 11 Glucose Level 101 70-105 MG/DL Calcium Level 9.2 8.5-10.1 MG/DL Corrected Calcium 9.1 8.5-10.1 MG/DL Total Bilirubin 0.3 0.1-1.0 MG/DL Aspartate Amino Transf (AST/SGOT) 28 5-34 U/L Alanine Aminotransferase (ALT/SGPT) 36 0-55 U/L Alkaline Phosphatase 54 40-136 U/L Total Protein 7.2 6.4-8.2 GM/DL Albumin 4.1 3.2-4.5 GM/DL Serum Test, Qualitative NEGATIVE NEGATIVE Urine Color YELLOW Urine Clarity CLEAR Urine pH 7.0 5-9 Urine Specific [place] 1.020 1.016-1.022 Urine Protein NEGATIVE NEGATIVE Urine Glucose (UA) NEGATIVE NEGATIVE Urine Ketones NEGATIVE NEGATIVE Urine Nitrite NEGATIVE NEGATIVE Urine Bilirubin NEGATIVE NEGATIVE Urine Urobilinogen 0.2 < = 1.0 MG/DL Urine Leukocyte Esterase NEGATIVE NEGATIVE Urine RBC (Auto) NEGATIVE NEGATIVE Urine RBC NONE /HPF Urine WBC NONE /HPF Urine Squamous Epithelial Cells 5-10 /HPF Urine Crystals NONE /LPF Urine Bacteria TRACE /HPF Urine Casts NONE /LPF Urine Mucus NEGATIVE /LPF Urine Culture Indicated NO (ABNER DELANEY MD) Medications Given in ED Current Medications Medications Dose Ordered Sig/Bar Route Start Time Stop Time Status Last Admin Dose Admin Fentanyl Citrate 50 mcg ONCE ONCE IVP 03/02/21 12:15 03/02/21 12:16 DC 03/02/21 12:21 50 MCG Iohexol 100 ml ONCE ONCE IV 03/02/21 12:15 03/02/21 12:16 DC 03/02/21 12:52 100 ML Ketorolac Tromethamine 15 mg ONCE ONCE IVP 03/02/21 13:15 03/02/21 13:16 DC 03/02/21 14:23 15 MG Ondansetron HCl 4 mg ONCE ONCE IVP 03/02/21 12:15 03/02/21 12:16 DC 03/02/21 12:21 4 MG Sodium Chloride 10 ml NEEDED PRN IV 03/02/21 12:15 03/02/21 14:52 DC 03/02/21 12:52 10 ML Sodium Chloride 100 ml ONCE ONCE IV 03/02/21 12:15 03/02/21 12:16 DC 03/02/21 12:52 80 ML (ABNER DELANEY MD) Vital Signs/I&O 03/02/21 03/02/21 12:05 14:52 Pulse 76 76 Resp 17 19 B/P (MAP) 131/67 (88) 128/72 Pulse Ox 97 98 O2 Delivery Room Air Room Air (ABNER DELANEY MD) Vital Signs/I&O Capillary Refill : (LEXII SOLORZANO APRN) Departure Communication (Admissions) NAME: AXEL COLIN [facility] REC#: [id number] PT STATUS: REG ER : 1995 PHYSICIAN: LEXII SOLORZANO APRN ADMIT DATE: 03/02/21/ER Draft Date of Exam:03/02/21 US PELVIC (NON OB)[id number] PROCEDURE: US PELVIC (NON OB) TECHNIQUE: Multiple real-time grayscale images were obtained over the pelvis in various projections transabdominally. INDICATION: Right lower quadrant abdominal pain. COMPARISON: None. FINDINGS: The uterus measures 9 x 4 x 5 cm and has a normal appearance. The endometrium is 12 mm thick. There is no mass. The right ovary measures 5 x 2.5 x 2.5 cm. Involuting follicle seen on the right ovary measures approximately 15 mm. There is fluid in the cul-de-sac. The left ovary measures 4 x 2 x 2.3 cm and contains several benign follicles. There is a small amount of free fluid in the cul-de-sac. There is no adnexal mass or cyst. There is no ovarian torsion. IMPRESSION: Involuting right physiologic ovarian follicle with small amount of free fluid in cul-de-sac. Dictated on workstation # [id number] Dict: 03/02/21 1414 Trans: 03/02/21 1419 [id number] Interpreted by: JOSELIN CHEEMA Electronically signed by: (LEXII SOLORZANO APRN) Impression Primary Impression: Ovarian cyst Disposition: HOME, SELF-CARE Condition: Stable Departure-Patient Inst. Decision time for Depature: 13:28 (LEXII SOLORZANO APRN) Referrals: [facility] [place] ([place]P/Family) Primary Care Physician Patient Instructions: Ovarian Cyst ED Add. Discharge Instructions: 1. Take ibuprofen 800 mg every 8 hours for pain control in addition to the prescribed pain medication. Return to ER for any concerns. Follow-up with your doctor next week for recheck. Scripts Hydrocodone/Acetaminophen (Hydrocodone-Acetamin 5-325 mg) 1 Each Tablet 1 TAB PO Q4H PRN for PAIN-MODERATE (5-7), #5 TAB Prov: LEXII SOLORZANO APRN 03/02/21 ATTENDING PHYSICIAN NOTE: I was physically present as attending physician in the emergency department during the care of this patient, but I was not directly involved in the decision making or delivery of care for this patient. (ABNER DELAENY MD) LEXII SOLORZAON APRN Mar 02, 2021 12:14 ABNER DELANEY MD Mar 02, 2021 19:01
[2021-03-02] MEDS ORDERED: NS 100 ML (IVPB) BAG IV ONE (12:15)
[2021-03-02] MEDS ORDERED: HOLD METFORMIN - RECEIVED CONTRAST 20 ML VIAL IV SCH (12:15)
[2021-03-02] MEDS ORDERED: LACTATED RINGERS 1,000 ML IV SCH (12:15)
[2021-03-02] MEDS ORDERED: fentaNYL INJ 100 MCG/2 ML AMP IVP ONE (12:15)
[2021-03-02] MEDS ORDERED: IOHEXOL 350 MG/ML 100 ML (OMNIPAQUE 350) VIAL IV ONE (12:15)
[2021-03-02] MEDS ORDERED: ONDANSETRON 4 MG/2 ML (SDV) Z0FRAN IVP ONE (12:15)
[2021-03-02] MEDS ORDERED: CATHETER FLUSH 10 ML SYR IV PRN (12:15)
[2021-03-02 12:19] LABS: BASOPHILS # (AUTO) 0.1 10^3/uL (0.0-0.1); BASOPHILS % (AUTO) 1 % (0-10); EOSINOPHILS # (AUTO) 0.3 10^3/uL (0.0-0.3); EOSINOPHILS % (AUTO) 2 % (0-10); HEMATOCRIT 43 % (35-52); HEMOGLOBIN 14.6 g/dL (11.5-16.0); LYMPHOCYTES # (AUTO) 3.5 10^3/uL (1.0-4.0); LYMPHOCYTES % (AUTO) 32 % (12-44); MEAN CORPUSCULAR HEMOGLOBIN 29 pg (25-34); MEAN CORPUSCULAR HGB CONC 34 g/dL (32-36); MEAN CORPUSCULAR VOLUME 87 fL (80-99); MEAN PLATELET VOLUME 8.5 fL (9.0-12.2); MONOCYTES # (AUTO) 0.5 10^3/uL (0.0-1.0); MONOCYTES % (AUTO) 5 % (0-12); NEUTROPHILS # (AUTO) 6.6 10^3/uL (1.8-7.8); NEUTROPHILS % (AUTO) 60 % (42-75); PLATELET COUNT 382 10^3/uL (130-400)
[2021-03-02 12:28] LABS: ALBUMIN 4.1 GM/DL (3.2-4.5)
[2021-03-02 12:29] LABS: CALCIUM 9.2 MG/DL (8.5-10.1)
[2021-03-02 12:31] LABS: TOTAL PROTEIN 7.2 GM/DL (6.4-8.2)
[2021-03-02 12:33] LABS: BILIRUBIN,TOTAL 0.3 MG/DL (0.1-1.0)
[2021-03-02 12:34] LABS: CREATININE SERUM 0.74 MG/DL (0.60-1.30)
--- NOTE | 2021-03-02 13:12 | Diagnostic Imaging Report ---
PROCEDURE: CT abdomen and pelvis with contrast, rule out appendicitis. TECHNIQUE: Multiple contiguous axial images were obtained through the abdomen and pelvis after the administration of intravenous contrast. All CT scans use one or more of the following dose optimizing techniques: automated exposure control, MA and/or KvP adjustment based on patient size and exam type or iterative reconstruction. DATE: March 02, 2021. COMPARISON: None. INDICATION: 25-year-old female, right lower quadrant abdominal pain. FINDINGS: The visualized portions of the lung bases are clear. The heart is not enlarged. Is no pericardial effusion. The liver is unremarkable in size and contour. There is no identified liver lesion. The main, right, left portal veins are patent. The gallbladder is unremarkable. There is no intrahepatic or extrahepatic bile duct dilation. The main pancreatic duct is not abnormally dilated. Unremarkable appearance of the pancreatic parenchyma. The spleen is normal in size. The adrenal glands are unremarkable. There is mild to moderate atrophy of the left kidney. There are areas of left renal cortical scarring. The urinary collecting systems are not distended. There is some contrast in the urinary collecting systems. There is no identified ureteral stone.. The urinary bladder is unremarkable. There is a right ovarian follicle. Additional CT assessment of the uterus and adnexa is grossly unremarkable. There is a minimal amount of free pelvic fluid which may be physiologic. The intestinal tract is not distended. The appendix is well-seen on axial image 73 and adjacent sequential images. There is no evidence of acute appendicitis. There is no free intraperitoneal air. There is no drainable fluid collection. There is no identified abnormally enlarged lymph node in the abdomen or pelvis meeting CT size criteria for adenopathy. There is no acute bony abnormality. IMPRESSION: CT ABDOMEN AND PELVIS. 1. No evidence of acute appendicitis or other acute abnormality in the abdomen or pelvis. 2. Probable right ovarian follicle and minimal free pelvic fluid which may be physiologic in etiology. 3. Mild to moderate left renal atrophy with areas of left renal cortical scarring. Dictated by: Dictated on workstation # [id number]
[2021-03-02] MEDS ORDERED: KETOROLAC 30 MG/ML VIAL IVP ONE (13:15)
--- NOTE | 2021-03-02 14:20 | Diagnostic Imaging Report ---
PROCEDURE: US PELVIC (NON OB) TECHNIQUE: Multiple real-time grayscale images were obtained over the pelvis in various projections transabdominally. INDICATION: Right lower quadrant abdominal pain. COMPARISON: None. FINDINGS: The uterus measures 9 x 4 x 5 cm and has a normal appearance. The endometrium is 12 mm thick. There is no mass. The right ovary measures 5 x 2.5 x 2.5 cm. Involuting follicle seen on the right ovary measures approximately 15 mm. There is fluid in the cul-de-sac. The left ovary measures 4 x 2 x 2.3 cm and contains several benign follicles. There is a small amount of free fluid in the cul-de-sac. There is no adnexal mass or cyst. There is no ovarian torsion. IMPRESSION: Involuting right physiologic ovarian follicle with small amount of free fluid in cul-de-sac. Dictated by: Dictated on workstation # [id number]
[2021-03-02] MEDS ORDERED: ACHD5005 PO (14:23)
[2021-03-02 14:32] LABS: BILIRUBIN,URINE NEGATIVE (NEGATIVE); CLARITY,URINE CLEAR; COLOR,URINE YELLOW; GLUCOSE, URINE (UA) NEGATIVE (NEGATIVE); KETONES,URINE NEGATIVE (NEGATIVE); LEUKOCYTE ESTERASE ,URINE NEGATIVE (NEGATIVE); NITRITE,URINE NEGATIVE (NEGATIVE); PROTEIN,URINE NEGATIVE (NEGATIVE)
[2021-03-02 14:43] LABS: BACTERIA,URINE TRACE /HPF
[2021-03-02 14:52] VITALS: BP 128/72
== END 2021-03-02 14:52 | disposition home or self-care (01) ==
LOC: EDUNIT# 11:59 → ER 12:02
DX: N83.201 Unspecified ovarian cyst, right side (principal); E66.9 Obesity, unspecified; Z68.38 Body mass index [BMI] 38.0-38.9, adult
CPT/HCPCS: 36415; 74177; 76856; 80053; 81000; 84703; 85025